=== PATIENT | male | born 1965 | race African-American/Black ===

== ENCOUNTER 2016-06-26 21:55 | Emergency (ER) | payer OTHER ==
--- NOTE | 2016-06-26 22:46 | ED ---
General Adult HPI - General Chief complaint: Extremity Problem,Nontraumatic Stated complaint: Hip pain Time Seen by Provider: 06/26/16 22:44 Source: patient, RN notes reviewed, old records reviewed Mode of arrival: ambulatory - History of Present Illness Initial comments: This is a 51-year-old male here for evaluation of nonspecific back pain leg pain and thigh pain. Patient's symptoms are this morning and progressively worsen, worse with ambulation, no modifying factors. Patient states he is unable to take more narcotics for pain. No difficulty with urination no problems with bowel movements. No trauma. No fevers. Denies IV drug abuse. - Related Data Home Medications Medication Instructions Recorded Confirmed Albuterol Inhaler [Ventolin Hfa 2 puff INHALATION Q6HR PRN 06/26/16 06/26/16 Inhaler] Benztropine Mesylate [Cogentin] 2 mg PO DAILY 06/26/16 06/26/16 Cough Syrup (Unknown) 5 ml PO BID PRN 06/26/16 06/26/16 Escitalopram Oxalate [Lexapro] 20 mg PO DAILY 06/26/16 06/26/16 Multivitamin [Men's Multi-Vitamin] 1 tab PO DAILY 06/26/16 06/26/16 Paliperidone IM [Invega Sustenna] 234 mg IM Q28D 06/26/16 06/26/16 QUEtiapine FUMARATE [SEROquel] 100 mg PO HS 06/26/16 06/26/16 Allergies Allergy/AdvReac Type Severity Reaction Status Date / Time haloperidol [From Haldol] Allergy Unknown Verified 06/26/16 22:00 Review of Systems ROS Statement: Those systems with pertinent positive or pertinent negative responses have been documented in the HPI. ROS Other: All systems not noted in ROS Statement are negative. Past Medical History Past Medical History: No Reported History Additional Past Medical History / Comment(s): hernia History of Any Multi-Drug Resistant Organisms: None Reported Past Surgical History: No Surgical Hx Reported Past Psychological History: Anxiety, Bipolar, Depression, Schizophrenia Smoking Status: Current every day smoker Past Alcohol Use History: Occasional Past Drug Use History: None Reported General Exam - General Exam Comments Initial Comments: No palpation of lower back difficulty, no neurological deficit General appearance: alert, in no apparent distress Head exam: Present: atraumatic, normocephalic, normal inspection Eye exam: Present: normal appearance, PERRL, EOMI. Absent: scleral icterus, conjunctival injection, periorbital swelling ENT exam: Present: normal exam, mucous membranes moist Neck exam: Present: normal inspection. Absent: tenderness, meningismus, lymphadenopathy Respiratory exam: Present: normal lung sounds bilaterally. Absent: respiratory distress, wheezes, rales, rhonchi, stridor Cardiovascular Exam: Present: regular rate, normal rhythm, normal heart sounds. Absent: systolic murmur, diastolic murmur, rubs, gallop, clicks GI/Abdominal exam: Present: soft, normal bowel sounds. Absent: distended, tenderness, guarding, rebound, rigid Extremities exam: Present: normal inspection, full ROM, normal capillary refill. Absent: tenderness, pedal edema, joint swelling, calf tenderness Back exam: Present: normal inspection Neurological exam: Present: alert, oriented X3, CN II-XII intact Psychiatric exam: Present: normal affect, normal mood Skin exam: Present: warm, dry, intact, normal color. Absent: rash Course Vital Signs 06/26/16 21:57 Temperature 97 F L Pulse Rate 72 Respiratory 18 Rate Blood Pressure 119/74 O2 Sat by Pulse 99 Oximetry - Reevaluation(s) Reevaluation #1: 06/27/16 00:07 Patient able to ambulate without difficulty Medical Decision Making - Medical Decision Making 51 male with bilateral hip pain. Patient's pain is mildly improved, he is able to ambulate urine is negative and x-rays normal - Radiology Data Radiology results: report reviewed (X-ray pelvis negative for acute disease), image reviewed Disposition Clinical Impression: Bilateral thigh pain Disposition: HOME SELF-CARE Condition: Good Instructions: Arthralgia (ED), Hip Pain (ED) Referrals: Phillip Mayes MD [Primary Care Provider] - 1-2 days
[2016-06-26] MEDS ORDERED: HYDROmorphone 2 MG/ML 1 ML SYRINGE IM STA (23:25)
[2016-06-26] MEDS ORDERED: IBUPROFEN 800 MG TAB PO STA (23:25)
--- NOTE | 2016-06-27 00:10 | XR ---
EXAMINATION TYPE: XR pelvis AP view DATE OF EXAM: 06/27/2016 12:00 AM COMPARISON: NONE HISTORY: Left-sided pelvic pain TECHNIQUE: Single view FINDINGS: Pelvic ring is intact. Proximal femurs and hip joints are intact. Sacroiliac joints are nor mal. There are numerous phleboliths in the pelvis. IMPRESSION: Negative pelvis exam. No fracture seen.
[2016-06-27 00:46] LABS: Appearance,Urine Clear (Clear); Bilirubin,Urine Negative (Negative); Glucose,Urine (UA) Negative (Negative); Ketones,Urine Negative (Negative); Leukocyte Esterase,Urine Negative (Negative); Nitrite,Urine Negative (Negative); Protein,Urine Negative (Negative); Specific Gravity,Urine 1.014 (1.001-1.035); UA Billing (MACRO vs. MICRO) CHEM
[2016-06-27 01:56] VITALS: BP 105/66; PULSE 71; RESP 16; TEMP 97.2
== END 2016-06-27 01:49 | disposition home or self-care (01) ==
LOC: EC 21:55
DX: M79.652 Pain in left thigh (principal); M79.651 Pain in right thigh; M25.552 Pain in left hip; M25.551 Pain in right hip; M54.9 Dorsalgia, unspecified; F41.9 Anxiety disorder, unspecified; F31.9 Bipolar disorder, unspecified; F20.9 Schizophrenia, unspecified; Z79.899 Other long term (current) drug therapy; Z88.8 Allergy status to other drugs, medicaments and biological substances; F17.200 Nicotine dependence, unspecified, uncomplicated
CPT/HCPCS: 72170; 81003; 87086; 99284

== ENCOUNTER 2016-07-09 12:40 | Observation (INO) | payer OTHER ==
[2016-07-09] MEDS ORDERED: ASPIRIN 81 MG CHEW PO STA (13:19)
[2016-07-09] MEDS ORDERED: NITROGLYCERIN OINT 1 INCH/GM PACKET TOPICAL STA (13:19)
--- NOTE | 2016-07-09 13:22 | ED ---
General Adult HPI - General Chief complaint: Shortness of Breath Stated complaint: Chest Pain Time Seen by Provider: 07/09/16 13:15 Source: patient, RN notes reviewed Mode of arrival: wheelchair Limitations: no limitations - History of Present Illness Initial comments: Patient is a pleasant 51-year-old male presenting to the emergency department chest discomfort and dyspnea. Symptoms have been intermittent over the past several weeks. Symptoms are worse with exertion. Patient also feels like there is a bubble in his chest. Patient was seen once previously and prescribed antibiotics and steroids without improvement of symptoms. Patient does admit also having a cough. Patient was seen again [facility] today and advised to come to the emergency department. Patient states symptoms are mild at this time, discomfort rated 2/10. Patient has a difficult time describing the type of discomfort he is experiencing. No history of similar symptoms previously. No history of cardiac disease. - Related Data Home Medications Medication Instructions Recorded Confirmed Albuterol Inhaler [Ventolin Hfa 2 puff INHALATION RT-Q6H PRN 06/26/16 07/09/16 Inhaler] Benztropine Mesylate [Cogentin] 2 mg PO DAILY 06/26/16 07/09/16 Escitalopram Oxalate [Lexapro] 20 mg PO DAILY 06/26/16 07/09/16 Multivitamin [Men's Multi-Vitamin] 1 tab PO DAILY 06/26/16 07/09/16 QUEtiapine FUMARATE [SEROquel] 100 mg PO HS 06/26/16 07/09/16 Lisinopril [Zestril] 10 mg PO DAILY 07/09/16 07/09/16 Omeprazole [PriLOSEC] 20 mg PO DAILY 07/09/16 07/09/16 Paliperidone IM [Invega Sustenna] 234 mg IM Q28D 07/09/16 07/09/16 QUEtiapine [SEROquel] 25 mg PO BID 07/09/16 07/09/16 Allergies Allergy/AdvReac Type Severity Reaction Status Date / Time haloperidol [From Haldol] Allergy Unknown Verified 07/09/16 12:53 Review of Systems ROS Statement: Those systems with pertinent positive or pertinent negative responses have been documented in the HPI. ROS Other: All systems not noted in ROS Statement are negative. Constitutional: Denies: fever Eyes: Denies: eye pain ENT: Denies: ear pain Respiratory: Reports: cough, dyspnea Cardiovascular: Reports: chest pain Endocrine: Reports: fatigue Gastrointestinal: Denies: abdominal pain Genitourinary: Denies: dysuria Musculoskeletal: Denies: back pain Skin: Denies: rash Neurological: Denies: weakness Past Medical History Past Medical History: No Reported History Additional Past Medical History / Comment(s): hernia History of Any Multi-Drug Resistant Organisms: None Reported Past Surgical History: Hernia Repair Past Psychological History: Anxiety, Bipolar, Depression, Schizophrenia Smoking Status: Current every day smoker Past Alcohol Use History: Occasional Past Drug Use History: None Reported General Exam Limitations: no limitations General appearance: alert, in no apparent distress Head exam: Present: atraumatic Eye exam: Present: normal appearance ENT exam: Present: normal oropharynx Neck exam: Present: normal inspection Respiratory exam: Present: normal lung sounds bilaterally. Absent: chest wall tenderness Cardiovascular Exam: Present: regular rate, normal rhythm Expanded Peripheral pulses: 2+: Radial (R), Radial (L), Posterior Tibialis (R), Posterior Tibialis (L) GI/Abdominal exam: Present: soft. Absent: tenderness Extremities exam: Present: normal inspection. Absent: pedal edema, calf tenderness Neurological exam: Present: alert Psychiatric exam: Present: normal affect, normal mood Skin exam: Absent: rash Course Vital Signs 07/09/16 07/09/16 07/09/16 12:51 13:12 13:34 Temperature 98.1 F Pulse Rate 92 66 Respiratory 20 20 18 Rate Blood Pressure 107/65 99/63 O2 Sat by Pulse 96 97 Oximetry 07/09/16 14:33 Temperature Pulse Rate 62 Respiratory 18 Rate Blood Pressure 100/64 O2 Sat by Pulse 94 L Oximetry - Reevaluation(s) Reevaluation #1: 07/09/16 13:36 Previous EKG from 03/11/16 with similar findings. EKG Findings - EKG Comments: EKG Findings:: Normal sinus rhythm at 65. Normal intervals. Left axis. Repolarization changes. Normal QRS. Medical Decision Making - Medical Decision Making Patient reexamined and resting comfortably in bed. Patient still has minimal discomfort. Patient updated on results and plan. Case discussed in detail with Dr. Carrasquillo, who will admit for hospital call. Case was earlier discussed with Dr. Middleton who felt patient should be city call secondary to being seen in the clinic and not Dr. Mayes as a primary. - Lab Data Result diagrams: 07/09/16 13:49 07/09/16 13:49 Lab Results 07/09/16 07/09/16 07/09/16 Range/Units 13:49 13:49 13:49 WBC 5.9 (3.8-10.6) k/uL RBC 4.77 (4.30-5.90) m/uL Hgb 11.3 L (13.0-17.5) gm/dL Hct 36.3 L (39.0-53.0) % MCV 76.1 L (80.0-100.0) fL MCH 23.6 L (25.0-35.0) pg MCHC 31.0 (31.0-37.0) g/dL RDW 13.6 (11.5-15.5) % Plt Count 157 (150-450) k/uL Neutrophils % 53 % Lymphocytes % 31 % Monocytes % 8 % Eosinophils % 5 % Basophils % 1 % Neutrophils # 3.1 (1.3-7.7) k/uL Lymphocytes # 1.8 (1.0-4.8) k/uL Monocytes # 0.5 (0-1.0) k/uL Eosinophils # 0.3 (0-0.7) k/uL Basophils # 0.0 (0-0.2) k/uL PT (9.0-12.0) sec INR (<1.1) APTT (22.0-30.0) sec D-Dimer (<0.60) mg/L FEU Sodium 141 (137-145) mmol/L Potassium 4.1 (3.5-5.1) mmol/L Chloride 103 (98-107) mmol/L Carbon Dioxide 27 (22-30) mmol/L Anion Gap 11 mmol/L BUN 6 L (9-20) mg/dL Creatinine 0.97 (0.66-1.25) mg/dL Est GFR (MDRD) Af Amer >60 (>60 ml/min/1.73 sqM) Est GFR (MDRD) Non-Af >60 (>60 ml/min/1.73 sqM) Glucose 94 (74-99) mg/dL Calcium 9.5 (8.4-10.2) mg/dL Magnesium 1.5 L (1.6-2.3) mg/dL Total Bilirubin 0.4 (0.2-1.3) mg/dL AST 27 (17-59) U/L ALT 35 (21-72) U/L Alkaline Phosphatase 68 (38-126) U/L Total Creatine Kinase 236 H (55-170) U/L CK-MB (CK-2) 1.4 (0.0-2.4) ng/mL CK-MB (CK-2) Rel Index 0.6 Troponin I <0.012 (0.000-0.034) ng/mL NT-Pro-B Natriuret Pep pg/mL Total Protein 7.9 (6.3-8.2) g/dL Albumin 4.2 (3.5-5.0) g/dL 07/09/16 07/09/16 Range/Units 13:49 13:49 WBC (3.8-10.6) k/uL RBC (4.30-5.90) m/uL Hgb (13.0-17.5) gm/dL Hct (39.0-53.0) % MCV (80.0-100.0) fL MCH (25.0-35.0) pg MCHC (31.0-37.0) g/dL RDW (11.5-15.5) % Plt Count (150-450) k/uL Neutrophils % % Lymphocytes % % Monocytes % % Eosinophils % % Basophils % % Neutrophils # (1.3-7.7) k/uL Lymphocytes # (1.0-4.8) k/uL Monocytes # (0-1.0) k/uL Eosinophils # (0-0.7) k/uL Basophils # (0-0.2) k/uL PT 10.5 (9.0-12.0) sec INR 1.0 (<1.1) APTT 26.2 (22.0-30.0) sec D-Dimer 0.58 (<0.60) mg/L FEU Sodium (137-145) mmol/L Potassium (3.5-5.1) mmol/L Chloride (98-107) mmol/L Carbon Dioxide (22-30) mmol/L Anion Gap mmol/L BUN (9-20) mg/dL Creatinine (0.66-1.25) mg/dL Est GFR (MDRD) Af Amer (>60 ml/min/1.73 sqM) Est GFR (MDRD) Non-Af (>60 ml/min/1.73 sqM) Glucose (74-99) mg/dL Calcium (8.4-10.2) mg/dL Magnesium (1.6-2.3) mg/dL Total Bilirubin (0.2-1.3) mg/dL AST (17-59) U/L ALT (21-72) U/L Alkaline Phosphatase (38-126) U/L Total Creatine Kinase (55-170) U/L CK-MB (CK-2) (0.0-2.4) ng/mL CK-MB (CK-2) Rel Index Troponin I (0.000-0.034) ng/mL NT-Pro-B Natriuret Pep 24 pg/mL Total Protein (6.3-8.2) g/dL Albumin (3.5-5.0) g/dL - Radiology Data Radiology results: image reviewed (Two-view chest x-ray shows no acute process.) Disposition Clinical Impression: Chest pain Disposition: ADMITTED IP TO THIS HOSP
--- NOTE | 2016-07-09 13:59 | XR ---
EXAMINATION TYPE: XR chest 2V DATE OF EXAM: 07/09/2016 1:55 PM COMPARISON: 03/11/2016 HISTORY: Chest pain TECHNIQUE: Frontal and lateral views of the chest are obtained. FINDINGS: There is no focal air space opacity, pleural effusion, or pneumothorax seen. The cardiac silhouette size is within normal limits. The osseous structures are intact. IMPRESSION: No acute cardiopulmonary process.
[2016-07-09 14:09] LABS: Basophils % (A) 1 %; CH 24.1; CHCM 31.9; Eosinophils # (A) 0.3 k/uL (0-0.7); Eosinophils % (A) 5 %; HCT 36.3 % (39.0-53.0); HDW 2.95; HGB 11.3 gm/dL (13.0-17.5); Luc # (Auto) 0.15; Luc % (Auto) 3; Lymphocytes # (A) 1.8 k/uL (1.0-4.8); Lymphocytes % (A) 31 %; MCH 23.6 pg (25.0-35.0); MCV 76.1 fL (80.0-100.0); Mean Platelet Volume 7.7; Monocytes # (A) 0.5 k/uL (0-1.0); Monocytes % (A) 8 %; Neutrophils # (A) 3.1 k/uL (1.3-7.7); Neutrophils % (A) 53 %; RBC 4.77 m/uL (4.30-5.90); RDW 13.6 % (11.5-15.5); WBC 5.9 k/uL (3.8-10.6); WBC (Perox) 5.79
[2016-07-09 14:19] LABS: Partial Thromboplastin Time 26.2 sec (22.0-30.0); Prothrombin Time 10.5 sec (9.0-12.0)
[2016-07-09 14:26] LABS: Creatine Kinase 236 U/L (55-170)
[2016-07-09 14:28] LABS: ALT 35 U/L (21-72); AST 27 U/L (17-59); Alkaline Phosphatase 68 U/L (38-126); Anion Gap 11 mmol/L; Blood Urea Nitrogen 6 mg/dL (9-20); Calcium 9.5 mg/dL (8.4-10.2); Carbon Dioxide 27 mmol/L (22-30); Chloride 103 mmol/L (98-107); Glucose 94 mg/dL (74-99); Magnesium 1.5 mg/dL (1.6-2.3); Non-African American GFR(MDRD) >60 (>60 ml/min/1.73 sqM); Potassium 4.1 mmol/L (3.5-5.1); Sodium 141 mmol/L (137-145); Total Bilirubin 0.4 mg/dL (0.2-1.3); Total Protein 7.9 g/dL (6.3-8.2)
[2016-07-09 14:38] LABS: Creatine Kinase MB 1.4 ng/mL (0.0-2.4); Troponin I <0.012 ng/mL (0.000-0.034)
[2016-07-09] MEDS ORDERED: MAGNESIUM OXIDE 400 MG TAB PO STA (15:38)
[2016-07-09] MEDS ORDERED: RX INFO: IV CONTRAST WAS GIVEN 1 EACH MISC MISCELLANE PRN (15:46)
[2016-07-09] MEDS ORDERED: NITROGLYCERIN SL TABS 0.4 MG TAB SUBLINGUAL PRN (15:48)
--- NOTE | 2016-07-09 18:53 | CT ---
EXAMINATION TYPE: CT angio chest DATE OF EXAM: 07/09/2016 6:48 PM COMPARISON: NONE HISTORY: Cough and mid chest pain. CT DLP: 338.20 mGycm Automated exposure control for dose reduction was used. CONTRAST: CTA scan of the thorax is performed with IV Contrast, patient injected with 100 mL of Omnipaque 350, pulmonary embolism protocol. . FINDINGS: There are Three-D postprocessed images. Lungs are clear of infiltrate. There is no pleural effusion. There is no evidence of a pulmonary mass . Heart size is normal. There is no pericardial effusion. There is no evidence of aortic aneurysm or dissection. There is normal contrast opacification of the pulmonary arteries. I see no filling defect. There is no mediastinal adenopathy. The bony thorax appe ars intact. IMPRESSION: NORMAL CT ANGIOGRAM OF THE CHEST. NO EVIDENCE OF PULMONARY EMBOLISM.
[2016-07-09] MEDS ORDERED: ALBUTEROL NEBULIZED 2.5 MG/3 ML INHALATION PRN (19:14)
[2016-07-09] MEDS: NITROGLYCERIN OINT 1 INCH/GM PACKET TOPICAL SCH ×2 (19:51→23:58)
[2016-07-09] MEDS ORDERED: ACETAMINOPHEN TAB 325 MG TAB PO PRN (19:52)
[2016-07-09] MEDS: QUEtiapine 25 MG TAB PO SCH (20:00)
[2016-07-09 20:51] LABS: Creatine Kinase 208 U/L (55-170)
[2016-07-09] MEDS ORDERED: QUEtiapine 100 MG TAB PO SCH (21:00)
[2016-07-09 21:04] LABS: Creatine Kinase MB 1.2 ng/mL (0.0-2.4); Troponin I <0.012 ng/mL (0.000-0.034)
[2016-07-10 02:32] LABS: Creatine Kinase 185 U/L (55-170)
[2016-07-10 02:44] LABS: Creatine Kinase MB 1.1 ng/mL (0.0-2.4); Troponin I <0.012 ng/mL (0.000-0.034)
[2016-07-10] MEDS: NITROGLYCERIN OINT 1 INCH/GM PACKET TOPICAL SCH ×2 (06:45→19:37)
--- NOTE | 2016-07-10 08:45 | CONS ---
DATE OF CONSULTATION: CHIEF COMPLAINT: Chest pain. Ryan is a 51-year-old gentleman who comes to the hospital complaining of chest pain. He describes it as a precordial chest discomfort without definite radiation to neck, arm or back. It is intermittent, has been going on for the last several weeks, feels like something is sitting in his chest and he is coughing but is not able to bring up anything. He had been evaluated in [facility] and was subsequently sent home. On this admission he had a CTA that is negative for pulmonary emoblism. He has had 3 sets of cardiac enzymes that are negative. EKG does not reveal ischemic changes. Past medical history is significant for bipolar mood disorder. Past medical history significant for GERD and hypertension. Medications include: 1. Cogentin. 2. Lexapro. 3. Seroquel. 4. Prilosec. 5. Zestril. ALLERGIC TO HALDOL. FAMILY HISTORY: Negative for premature coronary artery disease. SOCIAL HISTORY: Significant for smoking and ETOH abuse. He states that he stopped smoking for a while and is not drinking that much. There is no history of drug abuse. Review of systems unremarkable other than what has been mentioned so far. On exam he is comfortable at rest. Vital signs are stable. There is no jugular venous distention. Chest exam reveals good air entry bilaterally. Heart exam reveals first and second heart sounds. No gallop. No murmur, no rub. ABDOMEN: Soft, nontender. Exam of the extremities did not reveal edema. Peripheral pulses are felt. Labs show a hemoglobin of 11.3, platelet count is 157. Three sets of tropes are negative. Creatinine is 0.9. ASSESSMENT: 1. Precordial chest pain. 2. History of hypertension. PLAN: Patient's chest discomfort is atypical. Myocardial infarction is ruled out. EKG appears normal. I am going to schedule the patient for a stress echo and if this is negative, he will be discharged home and if this is abnormal, he will undergo further evaluation.
[2016-07-10] MEDS: QUEtiapine 25 MG TAB PO SCH (08:46)
[2016-07-10] MEDS ORDERED: ESCITALOPRAM 20 MG TAB PO SCH (09:00)
[2016-07-10] MEDS ORDERED: LISINOPRIL 10 MG TAB PO SCH (09:00)
[2016-07-10] MEDS ORDERED: ASPIRIN 325 MG TAB PO SCH (09:00)
--- NOTE | 2016-07-10 10:11 | HP ---
DATE OF ADMISSION: CHIEF COMPLAINT: Shortness of breath. HISTORY OF PRESENT ILLNESS: A 51-year-old who comes in with chest pain and shortness of breath over the past week and respiratory distress. CT angiogram in the ER was negative. He was admitted and monitored to rule out myocardial infarction. Advised to come to the emergency room and was admitted for respiratory distress and shortness of breath. He noted some swelling in his lower legs and scrotum. Possible lymphedema-type changes. HOME MEDICATIONS: 1. Ventolin HFA. 2. Cogentin. 3. Lexapro. 4. Seroquel. 5. Zestril. 6. Prilosec. 7. Invega. 8. Seroquel. ALLERGIES: HALDOL. REVIEW OF SYSTEMS: NEURO: Negative. PSYCH: History of schizophrenia. Slight affect. OPHTHALMOLOGIC: Negative. IMMUNE: Negative. INTEGUMENT: Negative. GASTROINTESTINAL: Negative. : Negative. PAST SURGICAL HISTORY: Hernia repair. History of anxiety, bipolar, schizophrenia, current every day smoker. Temp 98.1, pulse 60s to 90s, respiratory rate 18 to 20, blood pressure is 90s to 107/60's. O2 97% on room air. CARDIOVASCULAR: S1, S2. LUNGS: Transmitted upper air sounds. HEMATOLOGIC: Negative Homans. PSYCHIATRIC: Fair mood and affect. NEUROLOGIC: Alert and oriented x3. ( ) affect. SKIN: No rash. EKG shows sinus rhythm. Hemoglobin is 11.3. ASSESSMENT: 1. Rule out myocardial infarction. Await for cardiology consult. 2. Suspect tracheobronchitis and chronic obstructive pulmonary disease exacerbation. 3. Schizophrenia and bipolar. 4. Nicotine addiction. Please further orders in the chart.
--- NOTE | 2016-07-10 11:20 | ECHOS ---
DATE OF SERVICE: 07/10/2016 AGE: 51Y SEX: M HT: 75" WT: 227 lbs. Protocol Burak: X Others: Stress Echo Stage: II Dur. of Exercise: 4:25 *Heart Rate Blood Pressure *Rest: 79 Rest: 107/63 * *Max. Achieved: 137 Maximum BP: 158/64 85% PMHR: 145 100% PMHR: 170 *METS: 6.0 INDICATIONS: Chest pain. MEDICATIONS: - STRESS DATA: Pretesting physical examination showed a heart rate of 79, pressure is 107/63 mmHg. Baseline EKG showed sinus mechanism. The patient exercised on the treadmill according to Burak protocol for a total of 4 minutes and 25 seconds and achieved 6.0 METs. The max heart rate was 137, which is about 80% of maximum predicted heart rate. Maximum blood pressure was 158/64 mmHg. Clinically, the patient did not have any symptoms of chest pain or discomfort and the EKG did not show any significant ST or T-wave abnormalities consistent with ischemia. ECHOCARDIOGRAM IMAGES: On echocardiogram images from parasternal long axis view, parasternal short axis view, apical 4 chamber and apical 2 chambers noted as the baseline images, at the peak of the heart rate as well as on recovery and the echocardiogram showed good augmentation in the left ventricular systolic function. CONCLUSION: 1. Average exercise capacity. 2. Normal EKG in response to exercise. 3. Normal echocardiogram in response to exercise.
[2016-07-10 12:18] LABS: Cholesterol 186 mg/dL (<200); HDL Cholesterol 29 mg/dL (40-60); Triglycerides 156 mg/dL (<150)
[2016-07-10 12:31] VITALS: RESP 16
[2016-07-10 16:01] VITALS: BP 140/82; PULSE 88; TEMP 97.9
--- NOTE | 2016-08-03 21:22 | DS ---
DATE OF ADMISSION: 07/09/2016 DATE OF DISCHARGE: 07/10/2016 DISCHARGE MEDICATIONS 1. Cogentin 2 mg daily. 2. Seroquel 100 q.h.s. 3. Multivitamin daily. 4. Lexapro 20 daily. 5. Ventolin HFA 2 puffs q.6 hours p.r.n. 6. Omeprazole 20 daily. 7. Seroquel 25 mg b.i.d. 8. Lisinopril 10 mg daily. 9. Invega 234 mg IM q. 28 days. DISCHARGE DIAGNOSES: 1. Precordial chest pain. 2. Hypertension. 3. Atypical chest pain. 4. Nicotine addiction. 5. Alcohol abuse. 6. Mood disorder. The patient was seen by [facility] while in the hospital. Stress test with a stress echo was ordered by cardiology which is normal at which time patient was discharged home with cardiology clearance. CTA was also done to rule out pulmonary embolism which was normal, the patient cleared by cardiology and will follow up as an outpatient.
== END 2016-07-10 22:00 | disposition home or self-care (01) ==
LOC: EC 12:40 → 3OBS 15:48
PROVIDERS: ADMIT Family Medicine; ATTEND Family Medicine
DX: R07.2 Precordial pain (principal); F31.9 Bipolar disorder, unspecified; F10.10 Alcohol abuse, uncomplicated; F17.200 Nicotine dependence, unspecified, uncomplicated; I10 Essential (primary) hypertension; K21.9 Gastro-esophageal reflux disease without esophagitis; F20.9 Schizophrenia, unspecified; F41.9 Anxiety disorder, unspecified; Z88.8 Allergy status to other drugs, medicaments and biological substances; Z79.899 Other long term (current) drug therapy; R06.02 Shortness of breath; R05 Cough
CPT/HCPCS: 36415; 93005; 93017; 93350; 85379; 83880; 80061; 80053; 82550 ×2; 82553 ×2; 83735; 84484 ×2; 85025; 85610; 85730; 71020; 71275; 99285; G0378 ×2; Q9967

== ENCOUNTER 2016-10-01 15:28 | Emergency (ER) | payer OTHER ==
[2016-10-01 15:37] VITALS: RESP 20
--- NOTE | 2016-10-01 15:41 | ED ---
General Adult HPI - General Chief complaint: Urogenital Stated complaint: Male Time Seen by Provider: 10/01/16 15:37 Source: patient, RN notes reviewed, old records reviewed Mode of arrival: ambulatory Limitations: no limitations - History of Present Illness Initial comments: This is a 51-year-old male the ER for evaluation. Presents today for evaluation of multiple nonspecific complaints, he said he may have blood in his semen, he may of had some scrotum pain and is concerned is having her she was sent to ER for evaluation from [facility], patient states he went there for the same symptoms and they sent him here. No fevers. No bowel or bladder issues. - Related Data Home Medications Medication Instructions Recorded Confirmed Benztropine Mesylate [Cogentin] 2 mg PO QAM 06/26/16 10/01/16 Escitalopram Oxalate [Lexapro] 20 mg PO DAILY 06/26/16 10/01/16 Multivitamin [Men's Multi-Vitamin] 1 tab PO DAILY 06/26/16 10/01/16 QUEtiapine FUMARATE [SEROquel] 100 mg PO HS 06/26/16 10/01/16 Lisinopril [Zestril] 10 mg PO DAILY 07/09/16 10/01/16 Omeprazole [PriLOSEC] 20 mg PO DAILY 07/09/16 10/01/16 Paliperidone IM [Invega Sustenna] 234 mg IM Q28D 07/09/16 10/01/16 QUEtiapine [SEROquel] 25 mg PO BID 07/09/16 10/01/16 Allergies Allergy/AdvReac Type Severity Reaction Status Date / Time haloperidol [From Haldol] Allergy Anaphylaxis Verified 10/01/16 16:01 Review of Systems ROS Statement: Those systems with pertinent positive or pertinent negative responses have been documented in the HPI. ROS Other: All systems not noted in ROS Statement are negative. Past Medical History Past Medical History: No Reported History Additional Past Medical History / Comment(s): hernia, inguinal/umb History of Any Multi-Drug Resistant Organisms: None Reported Past Surgical History: Hernia Repair, Orthopedic Surgery Additional Past Surgical History / Comment(s): 05-03-16 robotic assisted lap lt inguinal hernia repair, right foot Past Anesthesia/Blood Transfusion Reactions: No Reported Reaction Past Psychological History: Anxiety, Bipolar, Depression, Schizophrenia Additional Psychological History / Comment(s): bipolar/depression listed on previous listed, when asked if he had bipolar depression he statee" i have anxiety and schizophrenia" Smoking Status: Current every day smoker Past Alcohol Use History: None Reported Additional Past Alcohol Use History / Comment(s): started smoking at age 20 1/2 ppd. pt stated he lives in a 3/4 house d/t his drinking stted has been there 5 months. Past Drug Use History: None Reported Additional Drug Use History / Comment(s): many years ago - Past Family History Mother Additional Family Medical History / Comment(s): bronchitis Father Family Medical History: No Reported History General Exam Limitations: no limitations General appearance: alert, in no apparent distress Head exam: Present: atraumatic, normocephalic, normal inspection Eye exam: Present: normal appearance, PERRL, EOMI. Absent: scleral icterus, conjunctival injection, periorbital swelling ENT exam: Present: normal exam, mucous membranes moist Neck exam: Present: normal inspection. Absent: tenderness, meningismus, lymphadenopathy Respiratory exam: Present: normal lung sounds bilaterally. Absent: respiratory distress, wheezes, rales, rhonchi, stridor Cardiovascular Exam: Present: regular rate, normal rhythm, normal heart sounds. Absent: systolic murmur, diastolic murmur, rubs, gallop, clicks GI/Abdominal exam: Present: soft, normal bowel sounds. Absent: distended, tenderness, guarding, rebound, rigid Extremities exam: Present: normal inspection, full ROM, normal capillary refill. Absent: tenderness, pedal edema, joint swelling, calf tenderness Back exam: Present: normal inspection Neurological exam: Present: alert, oriented X3, CN II-XII intact Psychiatric exam: Present: normal affect, normal mood Skin exam: Present: warm, dry, intact, normal color. Absent: rash Course Vital Signs 10/01/16 10/01/16 15:32 17:23 Temperature 98.9 F 98.4 F Pulse Rate 86 74 Respiratory 20 20 Rate Blood Pressure 114/73 112/62 O2 Sat by Pulse 98 98 Oximetry Medical Decision Making - Medical Decision Making 51 male to ER for evaluation nonspecific complaints. Exam is normal of bladder , scrotum, lymph nodes, lab work is normal, ultrasound was negative and patient will be discharged home - Lab Data Result diagrams: 10/01/16 15:45 10/01/16 15:45 Lab Results 10/01/16 10/01/16 10/01/16 Range/Units 15:45 15:45 15:45 WBC 6.6 (3.8-10.6) k/uL RBC 4.91 (4.30-5.90) m/uL Hgb 11.7 L (13.0-17.5) gm/dL Hct 37.0 L (39.0-53.0) % MCV 75.4 L (80.0-100.0) fL MCH 23.9 L (25.0-35.0) pg MCHC 31.7 (31.0-37.0) g/dL RDW 13.5 (11.5-15.5) % Plt Count 196 (150-450) k/uL Neutrophils % 54 % Lymphocytes % 32 % Monocytes % 6 % Eosinophils % 3 % Basophils % 2 % Neutrophils # 3.6 (1.3-7.7) k/uL Lymphocytes # 2.1 (1.0-4.8) k/uL Monocytes # 0.4 (0-1.0) k/uL Eosinophils # 0.2 (0-0.7) k/uL Basophils # 0.1 (0-0.2) k/uL Hypochromasia Slight Sodium 137 (137-145) mmol/L Potassium 4.0 (3.5-5.1) mmol/L Chloride 103 (98-107) mmol/L Carbon Dioxide 24 (22-30) mmol/L Anion Gap 10 mmol/L BUN 11 (9-20) mg/dL Creatinine 0.90 (0.66-1.25) mg/dL Est GFR (MDRD) Af Amer >60 (>60 ml/min/1.73 sqM) Est GFR (MDRD) Non-Af >60 (>60 ml/min/1.73 sqM) Glucose 98 (74-99) mg/dL Calcium 9.4 (8.4-10.2) mg/dL Phosphorus 4.3 (2.5-4.5) mg/dL Magnesium 1.5 L (1.6-2.3) mg/dL Total Bilirubin 0.6 (0.2-1.3) mg/dL AST 38 (17-59) U/L ALT 26 (21-72) U/L Alkaline Phosphatase 84 (38-126) U/L Total Protein 8.4 H (6.3-8.2) g/dL Albumin 4.4 (3.5-5.0) g/dL Urine Color Yellow Urine Appearance Clear (Clear) Urine pH 6.5 (5.0-8.0) Ur Specific [place] 1.008 (1.001-1.035) Urine Protein Negative (Negative) Urine Glucose (UA) Negative (Negative) Urine Ketones Negative (Negative) Urine Blood Negative (Negative) Urine Nitrite Negative (Negative) Urine Bilirubin Negative (Negative) Urine Urobilinogen <2.0 (<2.0) mg/dL Ur Leukocyte Esterase Negative (Negative) - Radiology Data Radiology results: report reviewed (US Scrotum Is Negative for Acute Disease), image reviewed Disposition Clinical Impression: Hematuria Disposition: HOME SELF-CARE Condition: Good Instructions: Hematuria (ED) Referrals: None,Stated [Primary Care Provider] - 1-2 days
[2016-10-01 16:04] LABS: Basophils # (A) 0.1 k/uL (0-0.2); Basophils % (A) 2 %; CH 23.5; CHCM 31.4; Eosinophils # (A) 0.2 k/uL (0-0.7); Eosinophils % (A) 3 %; HDW 2.81; HGB 11.7 gm/dL (13.0-17.5); Hypochromasia Slight; Luc # (Auto) 0.18; Luc % (Auto) 3; Lymphocytes # (A) 2.1 k/uL (1.0-4.8); Lymphocytes % (A) 32 %; MCH 23.9 pg (25.0-35.0); MCHC 31.7 g/dL (31.0-37.0); MCV 75.4 fL (80.0-100.0); Mean Platelet Volume 7.3; Monocytes # (A) 0.4 k/uL (0-1.0); Monocytes % (A) 6 %; Neutrophils # (A) 3.6 k/uL (1.3-7.7); Neutrophils % (A) 54 %; RBC 4.91 m/uL (4.30-5.90); RDW 13.5 % (11.5-15.5); WBC 6.6 k/uL (3.8-10.6); WBC (Perox) 6.51
[2016-10-01 16:05] LABS: Appearance,Urine Clear (Clear); Bilirubin,Urine Negative (Negative); Glucose,Urine (UA) Negative (Negative); Ketones,Urine Negative (Negative); Leukocyte Esterase,Urine Negative (Negative); Nitrite,Urine Negative (Negative); PH, Urine 6.5 (5.0-8.0); Protein,Urine Negative (Negative); Specific Gravity,Urine 1.008 (1.001-1.035); UA Billing (MACRO vs. MICRO) CHEM; Urobilinogen,Urine <2.0 mg/dL (<2.0)
[2016-10-01 16:21] LABS: ALT 26 U/L (21-72); AST 38 U/L (17-59); Alkaline Phosphatase 84 U/L (38-126); Anion Gap 10 mmol/L; Blood Urea Nitrogen 11 mg/dL (9-20); Calcium 9.4 mg/dL (8.4-10.2); Carbon Dioxide 24 mmol/L (22-30); Chloride 103 mmol/L (98-107); Glucose 98 mg/dL (74-99); Magnesium 1.5 mg/dL (1.6-2.3); Non-African American GFR(MDRD) >60 (>60 ml/min/1.73 sqM); Phosphorous 4.3 mg/dL (2.5-4.5); Sodium 137 mmol/L (137-145); Total Bilirubin 0.6 mg/dL (0.2-1.3); Total Protein 8.4 g/dL (6.3-8.2)
--- NOTE | 2016-10-01 16:40 | US ---
EXAMINATION TYPE: US scrotum with doppler. Grayscale and color Doppler Duplex imaging performed of francis wilks scrotum. DATE OF EXAM: 10/01/2016 4:30 PM COMPARISON: NONE CLINICAL HISTORY: Pain. Side not specified. EXAM MEASUREMENTS: TESTICLES: Right Testicle: 4.5 x 2.8 x 2.9 cm Left Testicle: 4.0 x 2.4 x 2.9 cm EPIDIDYMIS HEAD: Right Epididymis: 1.0 cm Left Epididymis: 0.7 cm Doppler performed to assess for testicular vascularity; good bilateral color flow and waveforms are s een. Presence of hydroceles: Right measures 3.7 x 1.2 x 2.2cm Left measures 5.9 x 1.4 x 3.8cm Presence of varicoceles: no Testicles are bilaterally heterogenous. Bilateral testicles are slightly heterogeneous in appearance. No worrisome focal intratesticular mass is present bilaterally. There are fairly moderate-sized scrotal fluid collection or hydroceles seen bilaterally. Towards end of exam comparison view shows no suspicious skin thickening. No asymmetric d iminished or increased blood flow to either testicle is seen. IMPRESSION: Symmetric blood flow to both testicles noted. Moderate symmetric scrotal fluid collection or hydroceles is present.
[2016-10-01 17:24] VITALS: BP 112/62; PULSE 74; TEMP 98.4
== END 2016-10-01 17:24 | disposition home or self-care (01) ==
LOC: EC 15:28
DX: R31.9 Hematuria, unspecified (principal); N50.82 Scrotal pain; F20.9 Schizophrenia, unspecified; F31.9 Bipolar disorder, unspecified; F41.9 Anxiety disorder, unspecified; F17.200 Nicotine dependence, unspecified, uncomplicated; Z79.899 Other long term (current) drug therapy; Z88.8 Allergy status to other drugs, medicaments and biological substances
CPT/HCPCS: 36415; 76870; 80053; 81003; 83735; 84100; 85025; 87086; 93975; 99284

== ENCOUNTER 2019-02-20 12:08 | Emergency (ER) | payer OTHER ==
[2019-02-20 12:19] VITALS: PULSE 84; RESP 18; TEMP 99
--- NOTE | 2019-02-20 13:22 | ED ---
Back Pain HPI - General Chief Complaint: Back Pain/Injury Stated Complaint: Side & Neck Pain Time Seen by Provider: 02/20/19 12:47 Source: patient, RN notes reviewed Limitations: no limitations - History of Present Illness Initial Comments: This a 53-year-old male presents emergency Department with chief complaint of low back pain, neck pain. He states that this has been ongoing for several weeks and his low back pain has been on for several months. Patient states that his pain is worse with movement denies any trauma he said no prior imaging. Patient states his right-sided neck pain is worse when he looks left and right. Patient denies any current headache dizziness, blurred vision, focal weakness. Patient states that he has not taken any medications for at this time. Patient states he also has right lower lumbar back pain that does not radiate into his legs he has no bowel bladder incontinence or retention has no complaints of abdominal pain. No dysuria no hematuria. - Related Data Home Medications Medication Instructions Recorded Confirmed Benztropine Mesylate [Cogentin] 2 mg PO QAM 06/26/16 02/20/19 Escitalopram Oxalate [Lexapro] 20 mg PO DAILY 06/26/16 02/20/19 Multivitamin [Men's Multi-Vitamin] 1 tab PO DAILY 06/26/16 02/20/19 QUEtiapine FUMARATE [SEROquel] 100 mg PO HS 06/26/16 02/20/19 Paliperidone IM [Invega Sustenna] 234 mg IM Q28D 07/09/16 02/20/19 QUEtiapine [SEROquel] 25 mg PO BID 07/09/16 02/20/19 Previous Rx's Medication Instructions Recorded Ibuprofen [Motrin] 600 mg PO Q8HR PRN #30 tab 02/20/19 Methocarbamol [Robaxin] 500 mg PO TID PRN #15 tab 02/20/19 Allergies Allergy/AdvReac Type Severity Reaction Status Date / Time haloperidol [From Haldol] Allergy Anaphylaxis Verified 02/20/19 12:36 Review of Systems ROS Statement: Those systems with pertinent positive or pertinent negative responses have been documented in the HPI. ROS Other: All systems not noted in ROS Statement are negative. Past Medical History Past Medical History: No Reported History Additional Past Medical History / Comment(s): hernia, inguinal/umb History of Any Multi-Drug Resistant Organisms: None Reported Past Surgical History: Hernia Repair, Orthopedic Surgery Additional Past Surgical History / Comment(s): 05-03-16 robotic assisted lap lt inguinal hernia repair, right foot Past Anesthesia/Blood Transfusion Reactions: No Reported Reaction Past Psychological History: Anxiety, Bipolar, Depression, Schizophrenia Smoking Status: Current every day smoker Past Alcohol Use History: None Reported Past Drug Use History: None Reported - Past Family History Mother Additional Family Medical History / Comment(s): bronchitis Father Family Medical History: No Reported History General Exam Limitations: no limitations General appearance: alert, in no apparent distress Head exam: Present: atraumatic, normocephalic, normal inspection Eye exam: Present: normal appearance, PERRL, EOMI. Absent: scleral icterus, conjunctival injection, periorbital swelling ENT exam: Present: normal exam, normal oropharynx, mucous membranes moist, TM's normal bilaterally Neck exam: Present: normal inspection, tenderness (Right cervical paraspinal), full ROM. Absent: meningismus, lymphadenopathy Respiratory exam: Present: normal lung sounds bilaterally. Absent: respiratory distress, wheezes, rales, rhonchi, stridor Cardiovascular Exam: Present: regular rate, normal rhythm, normal heart sounds. Absent: systolic murmur, diastolic murmur, rubs, gallop, clicks GI/Abdominal exam: Present: soft, normal bowel sounds. Absent: distended, tenderness, guarding, rebound, rigid Extremities exam: Present: normal inspection, full ROM, normal capillary refill, other (Full strength and neurovascular intact all extremities). Absent: tenderness, pedal edema, joint swelling, calf tenderness Back exam: Present: full ROM, tenderness, paraspinal tenderness. Absent: CVA tenderness (R), CVA tenderness (L), vertebral tenderness Skin exam: Present: warm, dry, intact, normal color. Absent: rash Course Vital Signs 02/20/19 12:16 Temperature 99.0 F Pulse Rate 84 Respiratory 18 Rate Blood Pressure 111/71 O2 Sat by Pulse 99 Oximetry Medical Decision Making - Medical Decision Making 54-year-old male presented from for right-sided neck, back pain. This seems any more pus is felt to nature x-rays are obtained which show no major abnormality's. Urinalysis unremarkable he has no abdominal tenderness. Patient was riding medications and will follow-up with PCP and orthopedics. Return parameters were discussed. - Lab Data Lab Results 02/20/19 Range/Units 13:20 Urine Color Yellow Urine Appearance Clear (Clear) Urine pH 6.0 (5.0-8.0) Ur Specific [place] 1.017 (1.001-1.035) Urine Protein Negative (Negative) Urine Glucose (UA) Negative (Negative) Urine Ketones Negative (Negative) Urine Blood Negative (Negative) Urine Nitrite Negative (Negative) Urine Bilirubin Negative (Negative) Urine Urobilinogen <2.0 (<2.0) mg/dL Ur Leukocyte Esterase Negative (Negative) Disposition Clinical Impression: Neck pain, Lumbar back pain Disposition: HOME SELF-CARE Condition: Stable Instructions (If sedation given, give patient instructions): Acute Low Back Pain (ED) Additional Instructions: Please return to the Emergency Department if symptoms worsen or any other concerns. Prescriptions: Ibuprofen [Motrin] 600 mg PO Q8HR PRN #30 tab PRN Reason: Pain Methocarbamol [Robaxin] 500 mg PO TID PRN #15 tab PRN Reason: muscle spasms Is patient prescribed a controlled substance at d/c from ED?: No Referrals: Darius Cox DO [Doctor of Osteopathic Medicine] - 1-2 days Time of Disposition: 14:07
--- NOTE | 2019-02-20 13:25 | XR ---
EXAMINATION TYPE: XR cervical spine comp DATE OF EXAM: 02/20/2019 COMPARISON: None HISTORY: Right sided neck pain TECHNIQUE: Five-view cervical spine FINDINGS: Prevertebral space is normal. Disc heights are preserved. Vertebral body heights are preser braulio. Posterior spinal lamellar line is intact. Foramen as visualized appear normal. Tip of the odonto id is obscured by the occiput. IMPRESSION: 1. Visualized cervical spine appears unremarkable.
--- NOTE | 2019-02-20 13:30 | XR ---
EXAMINATION TYPE: XR lumbar spine 2 or 3V DATE OF EXAM: 02/20/2019 COMPARISON: None HISTORY: Back pain TECHNIQUE: Three-view lumbar spine FINDINGS: There 5 lumbar-type vertebral bodies. Pedicles are intact. Disc heights are preserved. Vert ebral body heights are preserved. IMPRESSION: 1. Normal three-view lumbar spine
[2019-02-20 13:40] LABS: Appearance,Urine Clear (Clear); Bilirubin,Urine Negative (Negative); Blood,Urine Negative (Negative); Color,Urine Yellow; Glucose,Urine (UA) Negative (Negative); Ketones,Urine Negative (Negative); Leukocyte Esterase,Urine Negative (Negative); Nitrite,Urine Negative (Negative); Protein,Urine Negative (Negative); Specific Gravity,Urine 1.017 (1.001-1.035); Urobilinogen,Urine <2.0 mg/dL (<2.0)
[2019-02-20 14:26] VITALS: BP 103/72
== END 2019-02-20 14:25 | disposition home or self-care (01) ==
LOC: EC 12:08
DX: M54.5 Low back pain (principal); M54.2 Cervicalgia; F41.9 Anxiety disorder, unspecified; F31.9 Bipolar disorder, unspecified; F20.9 Schizophrenia, unspecified; F17.200 Nicotine dependence, unspecified, uncomplicated; Z79.899 Other long term (current) drug therapy; Z88.8 Allergy status to other drugs, medicaments and biological substances
CPT/HCPCS: 72050; 72100; 81003; 99283

== ENCOUNTER 2019-08-12 10:30 | Emergency (ER) | payer OTHER ==
[2019-08-12] MEDS ORDERED: SODIUM CHLORIDE 0.9% 1,000 ML IV STA (10:59)
--- NOTE | 2019-08-12 11:32 | ED ---
Extremity Problem HPI - General Chief complaint: Extremity Problem,Nontraumatic Stated complaint: Toe infection Time Seen by Provider: 08/12/19 10:50 Source: patient Mode of arrival: ambulatory Limitations: no limitations - History of Present Illness Initial comments: Patient is a 54-year-old male presenting to the emergency department with chief complaint of toe pain and dizziness. Patient states several days ago and has noticed pain in his right 4th toe. Today he was able to peel off extra skin which revealed white/pus. States he does have discomfort with ambulation. Denies any fever or chills at home. States over the last several days is also a feeling lightheaded. States this is worse whenever she is standing up from a laying position. States her to come into the ear, his head was spinning. States she has not been drinking as much water as he should. States his lips have also been cracking. Denies any headaches, blurry vision, one-sided weakness or paresthesias, dyspnea, shortness of breath, chest pain, back pain and abdominal pain nausea or vomiting. No history of diabetes - Related Data Home Medications Medication Instructions Recorded Confirmed Benztropine Mesylate [Cogentin] 2 mg PO QAM 06/26/16 02/20/19 Escitalopram Oxalate [Lexapro] 20 mg PO DAILY 06/26/16 02/20/19 Multivitamin [Men's Multi-Vitamin] 1 tab PO DAILY 06/26/16 02/20/19 QUEtiapine FUMARATE [SEROquel] 100 mg PO HS 06/26/16 02/20/19 Paliperidone IM [Invega Sustenna] 234 mg IM Q28D 07/09/16 02/20/19 QUEtiapine [SEROquel] 25 mg PO BID 07/09/16 02/20/19 Previous Rx's Medication Instructions Recorded Ibuprofen [Motrin] 600 mg PO Q8HR PRN #30 tab 02/20/19 Methocarbamol [Robaxin] 500 mg PO TID PRN #15 tab 02/20/19 Meclizine [Antivert] 25 mg PO TID PRN #15 tab 08/12/19 Sulfamethox-Tmp 800-160Mg [Bactrim 1 each PO Q12HR #20 tab 08/12/19 Ds] Allergies Allergy/AdvReac Type Severity Reaction Status Date / Time haloperidol [From Haldol] Allergy Anaphylaxis Verified 02/20/19 12:36 Review of Systems ROS Statement: Those systems with pertinent positive or pertinent negative responses have been documented in the HPI. ROS Other: All systems not noted in ROS Statement are negative. Past Medical History Past Medical History: No Reported History Additional Past Medical History / Comment(s): hernia, inguinal/umb History of Any Multi-Drug Resistant Organisms: None Reported Past Surgical History: Hernia Repair, Orthopedic Surgery Additional Past Surgical History / Comment(s): 05-03-16 robotic assisted lap lt inguinal hernia repair, right foot Past Anesthesia/Blood Transfusion Reactions: No Reported Reaction Past Psychological History: Anxiety, Bipolar, Depression, Schizophrenia Smoking Status: Current every day smoker Past Alcohol Use History: None Reported Past Drug Use History: None Reported - Past Family History Mother Additional Family Medical History / Comment(s): bronchitis Father Family Medical History: No Reported History General Exam Limitations: no limitations General appearance: alert, in no apparent distress Head exam: Present: atraumatic, normocephalic, normal inspection Eye exam: Present: normal appearance, PERRL, EOMI, nystagmus (Lateral, unilateral) Pupils: Present: normal accommodation ENT exam: Present: normal exam, normal oropharynx, mucous membranes dry Neck exam: Present: normal inspection, full ROM Respiratory exam: Present: normal lung sounds bilaterally. Absent: respiratory distress, wheezes Cardiovascular Exam: Present: regular rate, normal rhythm, normal heart sounds Extremities exam: Present: full ROM, tenderness, normal capillary refill, other (+2 ulnar and radial pulses bilaterally. +2 dorsalis pedis and posterior tibialis bilaterally.). Absent: normal inspection (right 4th toe has small skin avulsion. No surrounding erythema. Slightly tender to touch. No discharge noted.) Back exam: Present: normal inspection, full ROM. Absent: tenderness Neurological exam: Present: alert, oriented X3 Psychiatric exam: Present: normal affect, normal mood Skin exam: Present: warm, dry, intact, normal color Course Vital Signs 08/12/19 10:34 Temperature 98.3 F Pulse Rate 82 Respiratory 17 Rate Blood Pressure 137/83 O2 Sat by Pulse 100 Oximetry Medical Decision Making - Medical Decision Making Patient is 54-year-old male presenting to emergency Department with chief com plaint of toe pain and dizziness. An exam patient appears to have pulled a callus of his right fourth toe which cause him to have exposed tissue. No surrounding erythema or cellulitic changes noted. Patient does report pus prior to ED arrival. No fevers or chills. Patient also been complaining of some dizziness where his "head was spinning". Patient did also reports some lightheadedness especially after getting up from a laying or sitting position. EKG shows left axis deviation with a right bundle branch block. Q waves and Inverted T waves in lead III. Initial troponin is negative. Patient had an echo and a stress test by Dr. Caruso from 3 years ago. CBC and CMP are unremarkable. On exam patient also appears to have unilateral nystagmus suggesting vertigo. Patient given Antivert in the ED. He is able to ambulate. Dressing applied to the toe. Patient will be discharged with Bactrim for possible infection of the toe and vertigo. Return parameters were thoroughly discussed with patient is under sitting and agreeable. Case discussed with physician. - Lab Data Result diagrams: 08/12/19 11:13 08/12/19 11:13 Lab Results 08/12/19 08/12/19 08/12/19 Range/Units 11:13 11:13 11:13 WBC 6.5 (3.8-10.6) k/uL RBC 5.25 (4.30-5.90) m/uL Hgb 12.7 L (13.0-17.5) gm/dL Hct 40.5 (39.0-53.0) % MCV 77.1 L (80.0-100.0) fL MCH 24.3 L (25.0-35.0) pg MCHC 31.5 (31.0-37.0) g/dL RDW 14.1 (11.5-15.5) % Plt Count 174 (150-450) k/uL Neutrophils % 68 % Lymphocytes % 19 % Monocytes % 6 % Eosinophils % 3 % Basophils % 1 % Neutrophils # 4.4 (1.3-7.7) k/uL Lymphocytes # 1.2 (1.0-4.8) k/uL Monocytes # 0.4 (0-1.0) k/uL Eosinophils # 0.2 (0-0.7) k/uL Basophils # 0.1 (0-0.2) k/uL Sodium 137 (137-145) mmol/L Potassium 4.3 (3.5-5.1) mmol/L Chloride 101 (98-107) mmol/L Carbon Dioxide 24 (22-30) mmol/L Anion Gap 12 mmol/L BUN 5 L (9-20) mg/dL Creatinine 0.82 (0.66-1.25) mg/dL Est GFR (CKD-EPI)AfAm >90 (>60 ml/min/1.73 sqM) Est GFR (CKD-EPI)NonAf >90 (>60 ml/min/1.73 sqM) Glucose 94 (74-99) mg/dL Calcium 9.5 (8.4-10.2) mg/dL Total Bilirubin 0.4 (0.2-1.3) mg/dL AST 54 (17-59) U/L ALT 32 (4-49) U/L Alkaline Phosphatase 86 (38-126) U/L Troponin I <0.012 (0.000-0.034) ng/mL Total Protein 8.8 H (6.3-8.2) g/dL Albumin 4.9 (3.5-5.0) g/dL Disposition Clinical Impression: Vertigo, Avulsion of skin of toe Disposition: HOME SELF-CARE Condition: Stable Additional Instructions: Take prescribed medication as directed. Follow-up with primary care. Return to emergency department if symptoms worsen. Prescriptions: Meclizine [Antivert] 25 mg PO TID PRN #15 tab PRN Reason: Vertigo Is patient prescribed a controlled substance at d/c from ED?: No Referrals: [facility] [Primary Care Provider] - 1-2 days Time of Disposition: 13:09
[2019-08-12 11:40] LABS: Basophils # (A) 0.1 k/uL (0-0.2); Basophils % (A) 1 %; Eosinophils # (A) 0.2 k/uL (0-0.7); Eosinophils % (A) 3 %; HCT 40.5 % (39.0-53.0); HGB 12.7 gm/dL (13.0-17.5); Lymphocytes # (A) 1.2 k/uL (1.0-4.8); Lymphocytes % (A) 19 %; MCH 24.3 pg (25.0-35.0); MCHC 31.5 g/dL (31.0-37.0); MCV 77.1 fL (80.0-100.0); Mean Platelet Volume 7.9; Monocytes # (A) 0.4 k/uL (0-1.0); Monocytes % (A) 6 %; Neutrophils # (A) 4.4 k/uL (1.3-7.7); Neutrophils % (A) 68 %; Platelet Count 174 k/uL (150-450); RBC 5.25 m/uL (4.30-5.90); RDW 14.1 % (11.5-15.5); WBC 6.5 k/uL (3.8-10.6)
[2019-08-12 11:53] LABS: ALT 32 U/L (4-49); AST 54 U/L (17-59); African American GFR (CKD) >90 (>60 ml/min/1.73 sqM); Albumin 4.9 g/dL (3.5-5.0); Alkaline Phosphatase 86 U/L (38-126); Anion Gap 12 mmol/L; Blood Urea Nitrogen 5 mg/dL (9-20); Calcium 9.5 mg/dL (8.4-10.2); Carbon Dioxide 24 mmol/L (22-30); Chloride 101 mmol/L (98-107); Glucose 94 mg/dL (74-99); Non-African American GFR(CKD) >90 (>60 ml/min/1.73 sqM); Potassium 4.3 mmol/L (3.5-5.1); Sodium 137 mmol/L (137-145); Total Bilirubin 0.4 mg/dL (0.2-1.3); Total Protein 8.8 g/dL (6.3-8.2)
[2019-08-12] MEDS ORDERED: MECLIZINE 12.5 MG TAB PO STA (12:55)
[2019-08-12 13:14] VITALS: BP 142/88; PULSE 81; RESP 18; TEMP 97.9
== END 2019-08-12 13:17 | disposition home or self-care (01) ==
LOC: EC 10:30
DX: R42 Dizziness and giddiness (principal); S91.104A Unspecified open wound of right lesser toe(s) without damage to nail, initial encounter; I45.10 Unspecified right bundle-branch block; F41.9 Anxiety disorder, unspecified; F31.9 Bipolar disorder, unspecified; F20.9 Schizophrenia, unspecified; F17.200 Nicotine dependence, unspecified, uncomplicated; Z79.899 Other long term (current) drug therapy; Z88.8 Allergy status to other drugs, medicaments and biological substances; X58.XXXA Exposure to other specified factors, initial encounter
CPT/HCPCS: 36415; 80053; 84484; 85025; 93005; 96360; 99283

== ENCOUNTER 2019-10-31 14:31 | Observation (INO) | payer OTHER ==
[2019-10-31] MEDS ORDERED: ASPIRIN 81 MG PO STA (14:47)
--- NOTE | 2019-10-31 14:54 | ED ---
Chest Pain HPI - General Source: patient Mode of arrival: ambulatory Limitations: no limitations <Kevin Zelaya - Last Filed: 10/31/19 16:34> <Haritha Mcdaniel - Last Filed: 11/04/19 11:31> - General Chief Complaint: Chest Pain Stated Complaint: Chest pain Time Seen by Provider: 10/31/19 14:45 - History of Present Illness Initial Comments: Patient is a 54-year-old male with history of hyperlipidemia, hypertension and a smoker presenting to the emergency department with a chief complaint of chest pain. Patient reports this feels like pressure/tightness in the midsternal left side of the chest without any radiation. States the symptoms of an ongoing for the past 3 days with gradual increase in severity. States the pain is not reducible with palpation. Reports last night he also had an episode of S a dizziness along with bilateral hand tingling but no numbness or visual changes. States last night he also developed some shortness of breath. Denies any diaphoretic episodes, nausea or vomiting. Patient reports tingling sensation in bilateral feet for several months. States he could potentially be diabetic but was never tested. States strong family history of diabetes. Denies history of blood clots, recent hospitalizations, prolonged periods of activity, undergoing chemotherapy treatment, unilateral calf pain or swelling. Denies hemoptysis. (Kevin Zelaya) - Related Data Home Medications Medication Instructions Recorded Confirmed Escitalopram Oxalate [Lexapro] 20 mg PO DAILY 06/26/16 10/31/19 Ferrous Sulfate [Iron (65 MG 325 mg PO DAILY 10/31/19 10/31/19 Elemental)] Magnesium Oxide 200 mg PO DAILY 10/31/19 10/31/19 QUEtiapine FUMARATE [SEROquel] 200 mg PO HS 10/31/19 10/31/19 Previous Rx's Medication Instructions Recorded Ibuprofen [Motrin] 600 mg PO Q8HR PRN #30 tab 02/20/19 Atorvastatin [Lipitor] 40 mg PO HS #30 tab 11/02/19 Multivitamins, Thera [Multivitamin 1 tab PO DAILY #30 tablet 11/02/19 (formulary)] Pantoprazole [Protonix] 40 mg PO DAILY #30 tablet. 11/02/19 Allergies Allergy/AdvReac Type Severity Reaction Status Date / Time haloperidol [From Haldol] Allergy Anaphylaxis Verified 10/31/19 16:17 Review of Systems ROS Other: All systems not noted in ROS Statement are negative. <Kevin Zelaya - Last Filed: 10/31/19 16:34> ROS Other: All systems not noted in ROS Statement are negative. <Haritha Mcdaniel - Last Filed: 11/04/19 11:31> ROS Statement: Those systems with pertinent positive or pertinent negative responses have been documented in the HPI. EKG Findings - EKG Comments: EKG Findings:: Sinus rhythm, right bundle branch block, bifascicular block. Similar EKG to 08/21/19. Ventricular rate 67, TX 136, QRS 136, QTC 458. <Kevin Zelaya - Last Filed: 10/31/19 16:34> Past Medical History Past Medical History: No Reported History Additional Past Medical History / Comment(s): hernia, inguinal/umb History of Any Multi-Drug Resistant Organisms: None Reported Past Surgical History: Hernia Repair, Orthopedic Surgery Additional Past Surgical History / Comment(s): 05-03-16 robotic assisted lap lt inguinal hernia repair, right foot Past Anesthesia/Blood Transfusion Reactions: No Reported Reaction Past Psychological History: Anxiety, Bipolar, Depression, Schizophrenia Smoking Status: Current every day smoker Past Alcohol Use History: Daily Past Drug Use History: None Reported - Past Family History Mother Additional Family Medical History / Comment(s): bronchitis Father Family Medical History: No Reported History <Kevin Zelaya - Last Filed: 10/31/19 16:34> General Exam Limitations: no limitations General appearance: alert, in no apparent distress Head exam: Present: atraumatic, normocephalic, normal inspection Eye exam: Present: normal appearance, PERRL, EOMI Pupils: Present: normal accommodation ENT exam: Present: normal exam, normal oropharynx, mucous membranes moist Neck exam: Present: normal inspection, full ROM Respiratory exam: Present: normal lung sounds bilaterally. Absent: respiratory distress, wheezes, rales, chest wall tenderness Cardiovascular Exam: Present: regular rate, normal rhythm, normal heart sounds Extremities exam: Present: normal inspection, full ROM, normal capillary refill, other (+2 ulnar and radial pulses bilaterally. +2 dorsalis pedis and posterior tibialis bilaterally.). Absent: pedal edema, joint swelling, calf tenderness (Negative Homans bilaterally) Back exam: Present: normal inspection, full ROM Neurological exam: Present: alert, oriented X3 Psychiatric exam: Present: normal affect, normal mood Skin exam: Present: warm, dry, intact, normal color <QuyenCedric jollyo - Last Filed: 10/31/19 16:34> Course Vital Signs 10/31/19 10/31/19 10/31/19 14:34 14:48 15:22 Temperature 97.8 F Pulse Rate 80 66 Pulse Rate [ 82 Audit Tech ] Respiratory 18 18 Rate Blood Pressure 160/85 151/93 O2 Sat by Pulse 98 98 Oximetry 10/31/19 16:47 Temperature Pulse Rate 56 L Pulse Rate [ Audit Tech ] Respiratory 18 Rate Blood Pressure 127/85 O2 Sat by Pulse 98 Oximetry Chest Pain MDM - Differential Diagnosis ACS <Kevin Zelaya - Last Filed: 10/31/19 16:34> <Haritha Mcdaniel - Last Filed: 11/04/19 11:31> - MDM Patient is 54-year-old male with history of presenting to emergency Department with chief complaint of chest pain. Patient has typical chest pain with atypical features. Shortness of breath at rest. Chest x-ray is unremarkable. EKG shows a sinus rhythm with a bifascicular block. EKG appears similar to his most recent on 08/21/19. Initial troponin is negative. CBC and CMP are unremarkable. Patient was given aspirin and nitro. Patient does report some improvement in symptoms but the pressure is still persistent. Patient is a heart score of 4. wells score of 0. Patient will be admitted for cardiac mon itoring an OR rule out. Case discussed with Admitting physician is Cardiology on consult. (Kevin Zelaya) I was available for consultation in the emergency department. The history and physical exam were done by the midlevel provider. I was consulted for this patients care. I reviewed the case with the midlevel provider and based on their presentation of the patient, I agree with the assessment, medical decision making and plan of care as documented. Chart was dictated using [employer] dictation software. Attempts were made to correct any dictation errors however some typographical errors may persist. Patient was seen during a national state of emergency due to the Covid-19 pandemic. (Haritha Mcdaniel) Disposition Is patient prescribed a controlled substance at d/c from ED?: No Time of Disposition: 16:23 <Kevin Zelaya - Last Filed: 10/31/19 16:34> <Haritha Mcdaniel - Last Filed: 11/04/19 11:31> Clinical Impression: Chest pain Disposition: ADMITTED IP TO THIS HOSP Condition: Stable
[2019-10-31] MEDS ORDERED: NITROGLYCERIN SL TABS 0.4 MG TAB SUBLINGUAL PRN ×2 (15:02→16:32)
[2019-10-31 15:10] LABS: Basophils # (A) 0.1 k/uL (0-0.2); Basophils % (A) 1 %; Eosinophils # (A) 0.2 k/uL (0-0.7); Eosinophils % (A) 3 %; Hypochromasia Slight; Lymphocytes % (A) 35 %; MCH 24.8 pg (25.0-35.0); MCHC 31.7 g/dL (31.0-37.0); MCV 78.2 fL (80.0-100.0); Mean Platelet Volume 7.6; Monocytes # (A) 0.4 k/uL (0-1.0); Monocytes % (A) 7 %; Neutrophils % (A) 52 %; Platelet Count 219 k/uL (150-450); RBC 5.25 m/uL (4.30-5.90); WBC 5.7 k/uL (3.8-10.6)
--- NOTE | 2019-10-31 15:15 | XR ---
EXAMINATION TYPE: XR chest 2V DATE OF EXAM: 10/31/2019 COMPARISON: 07/09/2016 HISTORY: Chest pain TECHNIQUE: FINDINGS: Heart and mediastinum are normal. Lungs are clear. Diaphragm is normal. Bony thorax appears normal. IMPRESSION: Normal chest. No change.
[2019-10-31 15:19] LABS: Partial Thromboplastin Time 26.1 sec (22.0-30.0)
[2019-10-31 15:23] LABS: ALT 44 U/L (4-49); AST 64 U/L (17-59); African American GFR (CKD) >90 (>60 ml/min/1.73 sqM); Albumin 4.9 g/dL (3.5-5.0); Alkaline Phosphatase 88 U/L (38-126); Anion Gap 13 mmol/L; Blood Urea Nitrogen 9 mg/dL (9-20); Calcium 9.7 mg/dL (8.4-10.2); Carbon Dioxide 20 mmol/L (22-30); Chloride 102 mmol/L (98-107); Glucose 93 mg/dL (74-99); Magnesium 1.5 mg/dL (1.6-2.3); Non-African American GFR(CKD) >90 (>60 ml/min/1.73 sqM); Potassium 4.3 mmol/L (3.5-5.1); Sodium 135 mmol/L (137-145); Total Bilirubin 0.7 mg/dL (0.2-1.3); Total Protein 9.2 g/dL (6.3-8.2)
[2019-10-31] MEDS ORDERED: ONDANSETRON 4 MG/2 ML VIAL IVP PRN (17:30)
[2019-10-31] MEDS ORDERED: MORPHINE SULFATE 4 MG/ML SYRINGE IV PRN (17:30)
[2019-10-31] MEDS ORDERED: NALOXONE 0.4 MG/ML 1 ML VIAL IV PRN (17:30)
--- NOTE | 2019-10-31 17:59 | P.HPIM ---
History of Present Illness H&P Date: 10/31/19 Chief Complaint: chest pain 54 yo male with Hx of HLD, HTN presents with chest pain evaluation. Pain started 2 days ago, described as substernal, non radiating, pressure like, intermittent, lasting a few minutes, worse with activity and have been increasing in intensity. His pain has also been associated with dizziness, hand tingling and some shortness of breath. denies any cough, fever or chills. He had a stress test 3 years ago which was normal. He does not take aspirin at home, current active smoker, with strong family history for CAD. Vitals were stable in the ED, troponin normal, EKG shows a left fasicular block, no ST elevation or depression, no T wave inversion. Will be placed in observation for ACS rule out Review of Systems Constitutional: Denies chills, Denies fever, Denies sweats, Denies weakness Cardiovascular: Reports chest pain, Reports dyspnea on exertion, Reports lightheadedness, Reports shortness of breath, Denies orthopnea, Denies palpitations Respiratory: Denies congestion, Denies cough, Denies home oxygen, Denies respiratory infections Gastrointestinal: Denies abdominal pain, Denies diarrhea, Denies nausea, Denies vomiting Musculoskeletal: Reports leg numbness/tingling, Denies gait dysfunction, Denies myalgias Neurological: Denies ataxia, Denies headaches Psychiatric: Reports sleep disturbances Past Medical History Past Medical History: No Reported History, Chest Pain / Angina Additional Past Medical History / Comment(s): hernia, inguinal/umb, dizzyness when laying down or standing too quickly History of Any Multi-Drug Resistant Organisms: None Reported Past Surgical History: Hernia Repair, Orthopedic Surgery Additional Past Surgical History / Comment(s): 05-03-16 robotic assisted lap lt inguinal hernia repair, right foot Past Anesthesia/Blood Transfusion Reactions: No Reported Reaction Past Psychological History: Anxiety, Bipolar, Depression, Schizophrenia Additional Psychological History / Comment(s): bipolar/depression listed on previous listed, when asked if he had bipolar depression he statee" i have anxiety and schizophrenia" Smoking Status: Current every day smoker Past Alcohol Use History: Daily Additional Past Alcohol Use History / Comment(s): started smoking at age 20 1/2 ppd. Past Drug Use History: None Reported - Past Family History Mother Family Medical History: Cancer Additional Family Medical History / Comment(s): bronchitis Father Family Medical History: No Reported History Medications and Allergies Home Medications Medication Instructions Recorded Confirmed Type Escitalopram Oxalate [Lexapro] 20 mg PO DAILY 06/26/16 10/31/19 History Multivitamin [Men's Multi-Vitamin] 1 tab PO DAILY 06/26/16 10/31/19 History Ibuprofen [Motrin] 600 mg PO Q8HR PRN #30 tab 02/20/19 10/31/19 Rx Ferrous Sulfate [Feosol] 325 mg PO DAILY 10/31/19 10/31/19 History Magnesium Oxide 200 mg PO DAILY 10/31/19 10/31/19 History QUEtiapine FUMARATE [SEROquel] 200 mg PO HS 10/31/19 10/31/19 History Allergies Allergy/AdvReac Type Severity Reaction Status Date / Time haloperidol [From Haldol] Allergy Anaphylaxis Verified 10/31/19 16:17 Physical Exam Osteopathic Statement: *. No significant issues noted on an osteopathic structural exam other than those noted in the History and Physical/Consult. Vitals: Vital Signs Temp Pulse Pulse Resp BP BP Pulse Ox 10/31/19 17:00 96.5 F L 70 16 134/92 99 10/31/19 16:47 56 L 18 127/85 98 10/31/19 15:22 66 18 151/93 98 10/31/19 14:48 82 10/31/19 14:34 97.8 F 80 18 160/85 98 Intake and Output 10/31/19 10/31/19 10/31/19 06:59 14:59 22:59 Other: Weight 102.058 kg 102.058 kg - Constitutional General appearance: average body habitus, cooperative, no acute distress - EENT Eyes: EOMI, PERRLA - Respiratory Respiratory: bilateral: CTA - Cardiovascular Rhythm: regular Heart sounds: normal: S1, S2 Abnormal Heart Sounds: no systolic murmur, no diastolic murmur - Gastrointestinal General gastrointestinal: no distended, normal bowel sounds, no tenderness - Integumentary Integumentary: no jaundiced, no pale - Neurologic Neurologic: CNII-XII intact - Musculoskeletal Musculoskeletal: gait normal - Psychiatric Psychiatric: A&O x's 3, appropriate affect Results CBC & Chem 7: 10/31/19 15:00 10/31/19 15:00 Labs: Abnormal Lab Results - Last 24 Hours (Table) 10/31/19 10/31/19 Range/Units 15:00 15:00 MCV 78.2 L (80.0-100.0) fL MCH 24.8 L (25.0-35.0) pg Sodium 135 L (137-145) mmol/L Carbon Dioxide 20 L (22-30) mmol/L Magnesium 1.5 L (1.6-2.3) mg/dL AST 64 H (17-59) U/L Total Protein 9.2 H (6.3-8.2) g/dL Thrombosis Risk Factor Assmnt - Choose All That Apply Any of the Below Risk Factors Present?: Yes Each Factor Represents 1 point: Age 41-60 years, Obesity (BMI >25) Other Risk Factors: No Other congenital or acquired thrombophilia - If yes, enter type in comment: No Thrombosis Risk Factor Assessment Total Risk Factor Score: 2 Thrombosis Risk Factor Assessment Level: Low Risk Assessment and Plan Assessment: # Chest Pain-rule out ACS -BURTON Score 4 -troponin normal, continue to trend -EKG shows NSR, no ST changes, left fasicular block -nitroglycerin prn chest pain -cardiac telemetry -stress test in am -cardiology consult # Depression -continue Lexapro # Regular Diet, NPO after midnight
[2019-10-31] MEDS: QUEtiapine 200 MG TAB PO SCH (21:39)
[2019-11-01 03:56] LABS: Cholesterol 236 mg/dL (<200); HDL Cholesterol 43 mg/dL (40-60); LDL Cholesterol,Calculated 155 mg/dL (0-99); Triglycerides 188 mg/dL (<150)
--- NOTE | 2019-11-01 07:30 | P.CRDCN ---
History of Present Illness Consult date: 11/01/19 Chief complaint: Chest pain History of present illness: This is a 54-year-old -[place] gentleman with no prior cardiac history nor diabetes or hypertension or dyslipidemia but history of schizophrenia as well as history of alcohol use was admitted to the hospital through the emergency department with a chest discomfort. The patient somewhat is a poor historian. He stated that for the last 3 days he has been experiencing intermittent episodes of chest discomfort. The patient described her discomfort as sharp, in the mid of the chest, without any radiation to the arms or neck or shoulders, and without any associated symptoms of shortness of breath, sweating, dizziness, heart racing, or syncope. The chest discomfort according to him is nonexertional. No documented history of coronary artery disease and no diabetes or hypertension or dyslipidemia. The patient does smoke. No documented history according to him of premature coronary artery disease in his family. During this admission, the chest x-ray showed no acute abnormalities. The EKG showed sinus rhythm with RBBB and nonspecific changes inferiorly. Three sets of cardiac enzymes were checked and came in to be unremarkable. The patient continues to be chest pain-free through his hospital stay. He was admitted to the hospital back in 2017 with a chest discomfort and he was ruled out for acute coronary event and at that point he underwent a stress test and that came in to be unremarkable. Past Medical History Past Medical History: No Reported History, Chest Pain / Angina Additional Past Medical History / Comment(s): hernia, inguinal/umb, dizzyness when laying down or standing too quickly History of Any Multi-Drug Resistant Organisms: None Reported Past Surgical History: Hernia Repair, Orthopedic Surgery Additional Past Surgical History / Comment(s): 05-03-16 robotic assisted lap lt inguinal hernia repair, right foot Past Anesthesia/Blood Transfusion Reactions: No Reported Reaction Past Psychological History: Anxiety, Bipolar, Depression, Schizophrenia Additional Psychological History / Comment(s): bipolar/depression listed on pre vious listed, when asked if he had bipolar depression he statee" i have anxiety and schizophrenia" Smoking Status: Current every day smoker Past Alcohol Use History: Daily Additional Past Alcohol Use History / Comment(s): started smoking at age 20 1/2 ppd. Past Drug Use History: None Reported - Past Family History Mother Family Medical History: Cancer Additional Family Medical History / Comment(s): bronchitis Father Family Medical History: No Reported History Medications and Allergies Home Medications Medication Instructions Recorded Confirmed Type Escitalopram Oxalate [Lexapro] 20 mg PO DAILY 06/26/16 10/31/19 History Multivitamin [Men's Multi-Vitamin] 1 tab PO DAILY 06/26/16 10/31/19 History Ibuprofen [Motrin] 600 mg PO Q8HR PRN #30 tab 02/20/19 10/31/19 Rx Ferrous Sulfate [Feosol] 325 mg PO DAILY 10/31/19 10/31/19 History Magnesium Oxide 200 mg PO DAILY 10/31/19 10/31/19 History QUEtiapine FUMARATE [SEROquel] 200 mg PO HS 10/31/19 10/31/19 History Allergies Allergy/AdvReac Type Severity Reaction Status Date / Time haloperidol [From Haldol] Allergy Anaphylaxis Verified 10/31/19 16:17 Physical Exam Vitals: Vital Signs Temp Pulse Pulse Resp BP BP Pulse Ox 11/01/19 03:00 84 16 11/01/19 02:56 96.2 F L 84 16 120/69 96 10/31/19 22:57 73 16 10/31/19 22:54 96.3 F L 73 16 119/68 100 10/31/19 20:00 53 L 16 10/31/19 19:30 97.9 F 53 L 16 139/86 100 10/31/19 17:00 96.5 F L 70 16 134/92 99 10/31/19 16:47 56 L 18 127/85 98 10/31/19 15:22 66 18 151/93 98 10/31/19 14:48 82 10/31/19 14:34 97.8 F 80 18 160/85 98 Intake and Output 10/31/19 11/01/19 11/01/19 22:59 06:59 14:59 Intake Total 420 Balance 420 Intake: Oral 420 Other: Voiding Method Toilet Toilet # Voids 1 Weight 102.058 kg - Constitutional General appearance: no acute distress - Respiratory Respiratory: bilateral: CTA - Cardiovascular Rhythm: regular Heart sounds: normal: S1, S2 Abnormal Heart Sounds: systolic murmur Results 10/31/19 15:00 10/31/19 15:00 Cardiac Enzymes 10/31/19 10/31/19 10/31/19 Range/Units 15:00 15:00 21:09 AST 64 H (17-59) U/L Troponin I <0.012 <0.012 (0.000-0.034) ng/mL 11/01/19 Range/Units 02:23 AST (17-59) U/L Troponin I <0.012 (0.000-0.034) ng/mL Coagulation 10/31/19 Range/Units 15:00 PT 10.0 (9.0-12.0) sec APTT 26.1 (22.0-30.0) sec Lipids 11/01/19 Range/Units 02:23 Triglycerides 188 H (<150) mg/dL Cholesterol 236 H (<200) mg/dL HDL Cholesterol 43 (40-60) mg/dL CBC 10/31/19 Range/Units 15:00 WBC 5.7 (3.8-10.6) k/uL RBC 5.25 (4.30-5.90) m/uL Hgb 13.0 (13.0-17.5) gm/dL Hct 41.0 (39.0-53.0) % Plt Count 219 (150-450) k/uL Comprehensive Metabolic Panel 10/31/19 Range/Units 15:00 Sodium 135 L (137-145) mmol/L Potassium 4.3 (3.5-5.1) mmol/L Chloride 102 (98-107) mmol/L Carbon Dioxide 20 L (22-30) mmol/L BUN 9 (9-20) mg/dL Creatinine 0.85 (0.66-1.25) mg/dL Glucose 93 (74-99) mg/dL Calcium 9.7 (8.4-10.2) mg/dL AST 64 H (17-59) U/L ALT 44 (4-49) U/L Alkaline Phosphatase 88 (38-126) U/L Total Protein 9.2 H (6.3-8.2) g/dL Albumin 4.9 (3.5-5.0) g/dL Current Medications Generic Name Dose Route Start Last Admin Trade Name Freq PRN Reason Stop Dose Admin Aspirin 325 mg 11/01/19 09:00 Aspirin PO DAILY [facility] Escitalopram Oxalate 20 mg 11/01/19 09:00 Lexapro PO DAILY JUSTIN Ferrous Sulfate 325 mg 11/01/19 09:00 Feosol PO DAILY [facility] Morphine Sulfate 4 mg 10/31/19 17:30 Morphine Sulfate (Inj) IV Q4HR PRN Severe Pain Naloxone HCl 0.2 mg 10/31/19 17:30 Narcan IV Q2M PRN Opioid Reversal Nitroglycerin 0.4 mg 10/31/19 16:32 Nitrostat SUBLINGUAL Q5M PRN Chest Pain Ondansetron HCl 4 mg 10/31/19 17:30 Zofran IVP Q8HR PRN Nausea And Vomiting Quetiapine Fumarate 200 mg 10/31/19 21:00 10/31/19 21:39 Seroquel PO 200 mg HS JUSTIN Administration Intake and Output 10/31/19 11/01/19 11/01/19 22:59 06:59 14:59 Intake Total 420 Balance 420 Intake: Oral 420 Other: Voiding Method Toilet Toilet # Voids 1 Weight 102.058 kg 10/31/19 15:00 10/31/19 15:00 Assessment and Plan Assessment: Assessment #1 intermittent episodes of atypical chest discomfort #2 significant history of smoking #3 multiple psychiatric disorder #4 alcohol use Plan #1 acute coronary event was ruled out #2 stress test to be done tomorrow morning #3 further recommendation to follow that Thank you for allowing us participate in his care
[2019-11-01] MEDS: FERROUS SULFATE 325 MG TAB PO SCH (07:43)
[2019-11-01] MEDS: ASPIRIN 325 MG TAB PO SCH (07:43)
[2019-11-01] MEDS: ESCITALOPRAM 20 MG TAB PO SCH (07:43)
--- NOTE | 2019-11-01 11:27 | P.PN ---
Subjective Progress Note Date: 11/01/19 Principal diagnosis: Chest pain 54 yo male admitted yesterday with chest pain-rule out ACS. His EKG shows bifasicular block no ST changes, troponin normal. Chest pain has resolved, denies any dyspnea, no cough fevers or chills. His BP and HR have been normal, however he becomes tachycardic in the 120-130's when he gets up to walk, denies any symptoms however. Stress Echo scheduled for tomorrow. Objective - Vital Signs Vital signs: Vital Signs Temp 97.1 F L 11/01/19 07:40 Pulse 69 11/01/19 07:40 Resp 16 11/01/19 07:40 BP 120/77 11/01/19 07:40 Pulse Ox 98 11/01/19 07:40 Intake & Output 10/31/19 11/01/19 11/01/19 18:59 06:59 18:59 Intake Total 420 300 Balance 420 300 Weight 102.058 kg Intake: Oral 420 300 Other: Voiding Method Toilet Toilet Toilet # Voids 1 1 - Exam - Constitutional General appearance: average body habitus, cooperative, no acute distress - EENT Eyes: EOMI, PERRLA - Respiratory Respiratory: bilateral: CTA - Cardiovascular Rhythm: regular Heart sounds: normal: S1, S2 Abnormal Heart Sounds: no systolic murmur, no diastolic murmur - Gastrointestinal General gastrointestinal: no distended, normal bowel sounds, no tenderness - Integumentary Integumentary: no jaundiced, no pale - Neurologic Neurologic: CNII-XII intact - Musculoskeletal Musculoskeletal: gait normal - Psychiatric Psychiatric: A&O x's 3, appropriate affect - Labs CBC & Chem 7: 10/31/19 15:00 10/31/19 15:00 Labs: Abnormal Lab Results - Last 24 Hours (Table) 10/31/19 10/31/19 11/01/19 Range/Units 15:00 15:00 02:23 MCV 78.2 L (80.0-100.0) fL MCH 24.8 L (25.0-35.0) pg Sodium 135 L (137-145) mmol/L Carbon Dioxide 20 L (22-30) mmol/L Magnesium 1.5 L (1.6-2.3) mg/dL AST 64 H (17-59) U/L Total Protein 9.2 H (6.3-8.2) g/dL Triglycerides 188 H (<150) mg/dL Cholesterol 236 H (<200) mg/dL LDL Cholesterol, Calc 155 H (0-99) mg/dL Assessment and Plan Assessment: # Chest Pain-rule out ACS -chest pain has resolved -BURTON Score 4 -troponin normal -EKG shows NSR, no ST changes, left fasicular block -nitroglycerin prn chest pain -cardiac telemetry -stress Echo scheduled for 11/02/2019 # Tachycardia -induced with activity -will check orthostati vitals, may be due to dehydration # HLD -started on Atorvastatin 40 mg # Depression -continue Lexapro # Regular Diet, NPO after midnight
[2019-11-01] MEDS: LACTATED RINGERS 1,000 ML IV SCH ×4 (12:02→14:25)
[2019-11-01] MEDS ORDERED: ACETAMINOPHEN TAB 325 MG TAB PO PRN (12:29)
[2019-11-01] MEDS ORDERED: LACTATED RINGERS 1,000 ML IV SCH (14:00)
[2019-11-01 20:29] VITALS: RESP 18
[2019-11-01] MEDS: QUEtiapine 200 MG TAB PO SCH (20:40)
[2019-11-01] MEDS ORDERED: ATORVASTATIN 40 MG TAB PO SCH (21:00)
[2019-11-02 08:12] VITALS: TEMP 98.1
[2019-11-02] MEDS: ASPIRIN 325 MG TAB PO SCH (10:09)
[2019-11-02] MEDS: FERROUS SULFATE 325 MG TAB PO SCH (10:09)
[2019-11-02] MEDS: ESCITALOPRAM 20 MG TAB PO SCH (10:10)
[2019-11-02 10:42] LABS: Hemoglobin A1C 5.9 % (4.0-6.0)
[2019-11-02 13:16] VITALS: BP 121/70; PULSE 66
--- NOTE | 2019-11-02 14:59 | P.PN ---
Subjective Patient is seen and examined in no acute distress. He states this morning when he woke up he felt a sharp pain in the right anterior chest wall that was brief lasting less than 5 minutes and subsided on its own. Breathing is stable. No dizziness or palpitations. Blood pressure 121/70 heart rate 66 afebrile and maintaining oxygen saturation on room air. Laboratory data reviewed, cardiac enzymes negative x3, LDL 15, HDL 43, triglycerides 188 and total cholesterol 236. GENERAL: Well-appearing, well-nourished and in no acute distress. NECK: Supple without JVD or thyromegaly. LUNGS: Breath sounds clear to auscultation bilaterally. Respiration equal and unlabored. No wheezes, rales or rhonchi. HEART: Regular rate and rhythm without murmurs, rubs or gallops. S1 and S2 heard. EXTREMITIES: Normal range of motion, no edema. No clubbing or cyanosis. Peripheral pulses intact. ASSESSMENT Chest pain, atypical. An acute coronary event has been ruled out. Dyslipidemia Chronic nicotine dependence Schizophrenia Alcohol abuse PLAN Recommend lifestyle modifications along with statin therapy for lowering of LDL cholesterol. Stress echocardiogram was obtained and reviewed. No evidence of stress induced ischemia. Follow up in the office with Dr. Tate in 2 weeks. Nurse Practitioner note has been reviewed, I agree with a documented findings a nd plan of care. Patient was seen and examined. Objective - Vital Signs Vital signs: Vital Signs Temp 98.1 F 11/02/19 08:00 Pulse 66 11/02/19 12:00 Resp 18 11/02/19 12:00 BP 121/70 11/02/19 12:00 Pulse Ox 99 11/02/19 12:00 Intake & Output 11/01/19 11/02/19 11/02/19 18:59 06:59 18:59 Intake Total 960 Balance 960 Weight 102.06 kg Intake: Oral 960 Other: Voiding Method Toilet Toilet Toilet # Voids 1 1 1 - Labs CBC & Chem 7: 10/31/19 15:00 10/31/19 15:00
--- NOTE | 2019-11-02 15:19 | P.STRESS ---
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 He is fatigued by that time Peak heart rate 155 beats a minute, normal blood pressure response to exercise There was no definite ECG ms for ischemia Baseline 2-D echo images showed normal limits and systolic function without any segmental wall motion abnormalities At peak exercise there was augmentation of oral LV contractility without development of any wall motion abnormalities @Recovery region global LV systolic function remained normal Impression low average exercise capacity on a Burak protocol without ECG ms ischemia No echo cardio graphic ms ischemia Underlying right bundle branch block left anterior fascicular block
--- NOTE | 2019-11-02 15:31 | P.DS ---
Providers Date of admission: 10/31/19 16:25 Expected date of discharge: 11/02/19 Attending physician: Sue Shea MD Consults: 10/31/19 16:32 Consult Physician Urgent Consulting Provider: Judd Rendon Consult Reason/Comments: Chest pain, [place] rule out Do you want consulting provider notified?: Yes Primary care physician: [facility] Course: Discharge Diagnosis: atypical chest pain GERD HLD HTN Hypomagnesemia Schizophrenia Hospital Course: Patient is a 54-year-old -[place] male with a past medical history of hypertension, dyslipidemia, hernia, and schizophrenia who presented to the emergency department with complaints of chest pain. In the ER he underwent an extensive evaluation. On initial vital signs he was slightly hypertensive with a blood pressure 160/85. Initial laboratory analysis showed no significant abnormalities. Magnesium was slightly low at 1.5. Troponin was negative. He's given an aspirin his minute his chest pain observation. Cardiology was consulted. The remainder of his troponins were negative. He remained chest pain-free during his hospital stay. He underwent an exercise stress echo on 11/01 which showed no signs of reversible ischemia. He was started on cholesterol medication as his total cholesterol is 236 and LDL 155. He was also started on Protonix as he stated that he had been using Tums and Pepto-Bismol but they have become less effective. He was discharged home in stable condition to follow-up with his primary care provider out of the [facility]. Patient seen and examined at bedside. States he tolerated stress test well. He was working out and short of breath by the end. He denies any recurrent chest p ain. Vital signs reviewed and stable. General: non toxic, no distress, appears at stated age Derm: warm, dry Head: atraumatic, normocephalic, symmetric Eyes: EOMI, no lid lag, anicteric sclera Mouth: no lip lesion, mucus membranes moist Cardiovascular: S1S2 reg, no murmur, positive posterior tibial pulse bilateral, Lungs: CTA bilateral, no rhonchi, no rales , no accessory muscle use Abdominal: soft, nontender to palpation, no guarding, no appreciable organomegaly Ext: no gross muscle atrophy, no edema, no contractures Neuro: CN II-XI grossly intact, no focal neuro deficits Psych: Alert, oriented, appropriate affect A total of 35 minutes of time were spent preparing this complex discharge summary . Patient Condition at Discharge: Stable Plan - Discharge Summary Discharge Rx Participant: No New Discharge Prescriptions: New Atorvastatin [Lipitor] 40 mg PO HS #30 tab Multivitamins, Thera [Multivitamin (formulary)] 1 tab PO DAILY #30 tablet Pantoprazole [Protonix] 40 mg PO DAILY #30 tablet. Continue Escitalopram Oxalate [Lexapro] 20 mg PO DAILY Ibuprofen [Motrin] 600 mg PO Q8HR PRN #30 tab PRN Reason: Pain QUEtiapine FUMARATE [SEROquel] 200 mg PO HS Magnesium Oxide 200 mg PO DAILY Ferrous Sulfate [Iron (65 MG Elemental)] 325 mg PO DAILY Discontinued Multivitamin [Men's Multi-Vitamin] 1 tab PO DAILY Discharge Medication List Escitalopram Oxalate [Lexapro] 20 mg PO DAILY 06/26/16 [History] Ibuprofen [Motrin] 600 mg PO Q8HR PRN #30 tab 02/20/19 [Rx] Ferrous Sulfate [Iron (65 MG Elemental)] 325 mg PO DAILY 10/31/19 [History] Magnesium Oxide 200 mg PO DAILY 10/31/19 [History] QUEtiapine FUMARATE [SEROquel] 200 mg PO HS 10/31/19 [History] Atorvastatin [Lipitor] 40 mg PO HS #30 tab 11/02/19 [Rx] Multivitamins, Thera [Multivitamin (formulary)] 1 tab PO DAILY #30 tablet 11/02/19 [Rx] Pantoprazole [Protonix] 40 mg PO DAILY #30 tablet. 11/02/19 [Rx] Follow up Appointment(s)/Referral(s): Elijah Tate MD [STAFF PHYSICIAN] - [facility] - [facility]2 days Patient Instructions/Handouts: Chest Pain (ED), How to Stop Smoking (DC), Cigarette Smoking and Your Health (GEN), Cholesterol and Your Health (GEN), Hyperlipidemia (GEN) Activity/Diet/Wound Care/Special Instructions: Activity: as tolerated Diet: heart healthy Special Instructions: Return with recurrent chest pain or worsening shortness of breath Discharge Disposition: HOME SELF-CARE
[2019-11-03] MEDS ORDERED: ASPIRIN 81 MG PO SCH (09:00)
--- NOTE | 2019-11-04 16:08 | ECHOS ---
Stress Test Results/Findings: Exam Performed: stress echo exercise Exam Date: 11/02/19 Reason for Exam: CP Height: 6 ft 3 in Weight: 102.06 kg Protocol: STRESS ECHO Stage: 2 Duration of Exercise: 5:17 Resting Heart Rate: 65 Resting Blood Pressure: 100/48 Maximum Achieved Heart Rate: 157 Maximum Achieved Blood Pressure: 144/57 85% PMHR: 142 100% PMHR: 167 METS: 7.1 Technologist Comment: Stress Test Results/Findings: Baseline heart rate 65 bpm, Baseline blood pressure 100/48 mmHg The baseline ECG showed sinus rhythm normal [place] right bundle branch block left anterior fascicular block Patient exercised on a Burak protocol for 15 minutes 17 seconds. He is fatigued by that time Peak heart rate 155 beats a minute, normal blood pressure response to exercise There was no definite ECG ms for ischemia Baseline 2-D echo images showed normal limits and systolic function without any segmental wall motion abnormalities At peak exercise there was augmentation of oral LV contractility without development of any wall motion abnormalities @Recovery region global LV systolic function remained normal Impression low average exercise capacity on a Burak protocol without ECG ms ischemia No echo cardio graphic ms ischemia Underlying right bundle branch block left anterior fascicular block MTDD
== END 2019-11-02 15:57 | disposition home or self-care (01) ==
LOC: EC 14:31 → 1SOBS 16:25
PROVIDERS: ADMIT Internal Medicine; ATTEND Internal Medicine
DX: R07.89 Other chest pain (principal); R20.2 Paresthesia of skin; R42 Dizziness and giddiness; R06.02 Shortness of breath; E83.42 Hypomagnesemia; K21.9 Gastro-esophageal reflux disease without esophagitis; E78.5 Hyperlipidemia, unspecified; I10 Essential (primary) hypertension; I45.2 Bifascicular block; F41.9 Anxiety disorder, unspecified; F31.9 Bipolar disorder, unspecified; F20.9 Schizophrenia, unspecified; F17.210 Nicotine dependence, cigarettes, uncomplicated; E66.9 Obesity, unspecified; Z68.28 Body mass index [BMI] 28.0-28.9, adult; Z11.59 Encounter for screening for other viral diseases; Z79.899 Other long term (current) drug therapy; Z88.8 Allergy status to other drugs, medicaments and biological substances; Z87.19 Personal history of other diseases of the digestive system; Z98.890 Other specified postprocedural states; Z72.89 Other problems related to lifestyle; Z83.3 Family history of diabetes mellitus; Z82.5 Family history of asthma and other chronic lower respiratory diseases; Z82.49 Family history of ischemic heart disease and other diseases of the circulatory system; Z80.9 Family history of malignant neoplasm, unspecified
CPT/HCPCS: 93005 ×2; 99285; 36415; 93351; 80061; 80053; 83735; 84484 ×2; 85025; 85610; 85730; 83036; 71046; G0378 ×3; U0003

== ENCOUNTER 2019-11-23 02:12 | Emergency (ER) | payer OTHER ==
[2019-11-23 02:28] VITALS: RESP 18; TEMP 97.9
[2019-11-23 02:38] LABS: Sperm,Urine Rare /hpf; Squamous Epithelial Cell,Urine <1 /hpf (0-4); WBC,Urine <1 /hpf (0-5)
--- NOTE | 2019-11-23 02:39 | ED ---
Back Pain HPI - General Chief Complaint: Back Pain/Injury Stated Complaint: back pain Time Seen by Provider: 11/23/19 02:30 Source: patient, EMS Limitations: no limitations - History of Present Illness Initial Comments: This patient is 54-year-old man who presents with right flank pain. The patient describes it as a moderate severity aching. It is constant. The pain does get worse if he presses on the area or with movement. I states it's better if he is lying down. Patient does not recall any inciting injury. Patient denies any pain into the abdomen or chest. There is no radiation into the legs. He has not had change in urination or bowel movements. No testicular or scrotal pain or swelling. Patient declines pain medication at initial history and physical MD Complaint: back pain -: days(s) Similar Symptoms Previously: No Place: home Radiation: none Severity: moderate Quality: aching Consistency: constant Improves With: immobilization Worsens With: movement, other (The patient) Associated Symptoms: denies other symptoms - Related Data Home Medications Medication Instructions Recorded Confirmed Escitalopram Oxalate [Lexapro] 20 mg PO DAILY 06/26/16 10/31/19 Ferrous Sulfate [Iron (65 MG 325 mg PO DAILY 10/31/19 10/31/19 Elemental)] Magnesium Oxide 200 mg PO DAILY 10/31/19 10/31/19 QUEtiapine FUMARATE [SEROquel] 200 mg PO HS 10/31/19 10/31/19 Previous Rx's Medication Instructions Recorded Ibuprofen [Motrin] 600 mg PO Q8HR PRN #30 tab 02/20/19 Atorvastatin [Lipitor] 40 mg PO HS #30 tab 11/02/19 Multivitamins, Thera [Multivitamin 1 tab PO DAILY #30 tablet 11/02/19 (formulary)] Pantoprazole [Protonix] 40 mg PO DAILY #30 tablet. 11/02/19 Methocarbamol [Robaxin-750] 750 mg PO TID PRN #30 tablet 11/23/19 Thiamine [Vitamin B-1] 100 mg PO DAILY #30 tablet 11/23/19 Allergies Allergy/AdvReac Type Severity Reaction Status Date / Time haloperidol [From Haldol] Allergy Anaphylaxis Verified 10/31/19 16:17 Review of Systems ROS Statement: Those systems with pertinent positive or pertinent negative responses have been documented in the HPI. ROS Other: All systems not noted in ROS Statement are negative. Constitutional: Denies: fever, chills Respiratory: Denies: cough, dyspnea Cardiovascular: Denies: chest pain, palpitations, edema Gastrointestinal: Denies: abdominal pain, vomiting, diarrhea, melena, hematochezia Genitourinary: Denies: dysuria, hematuria, testicular pain, testicular mass Musculoskeletal: Reports: as per HPI, back pain Skin: Denies: rash Neurological: Denies: headache, weakness, numbness Past Medical History Past Medical History: No Reported History, Chest Pain / Angina Additional Past Medical History / Comment(s): hernia, inguinal/umb, dizzyness when laying down or standing too quickly History of Any Multi-Drug Resistant Organisms: None Reported Past Surgical History: Hernia Repair, Orthopedic Surgery Additional Past Surgical History / Comment(s): 05-03-16 robotic assisted lap lt inguinal hernia repair, right foot Past Anesthesia/Blood Transfusion Reactions: No Reported Reaction Past Psychological History: Anxiety, Bipolar, Depression, Schizophrenia Smoking Status: Current every day smoker Past Alcohol Use History: Daily Past Drug Use History: None Reported - Past Family History Mother Family Medical History: Cancer Additional Family Medical History / Comment(s): bronchitis Father Family Medical History: No Reported History General Exam Limitations: no limitations General appearance: alert, in no apparent distress, appears intoxicated Head exam: Present: atraumatic, normocephalic Eye exam: Present: normal appearance. Absent: scleral icterus, conjunctival injection ENT exam: Present: mucous membranes dry Respiratory exam: Present: normal lung sounds bilaterally. Absent: respiratory distress, wheezes, rales, rhonchi, stridor Cardiovascular Exam: Present: regular rate, normal rhythm, normal heart sounds. Absent: systolic murmur, diastolic murmur, rubs, gallop GI/Abdominal exam: Present: soft. Absent: distended, tenderness, guarding, rebound, rigid, mass Extremities exam: Present: normal inspection, normal capillary refill. Absent: pedal edema, calf tenderness Back exam: Present: normal inspection, paraspinal tenderness. Absent: CVA tenderness (R), CVA tenderness (L), vertebral tenderness Neurological exam: Present: alert. Absent: motor sensory deficit Skin exam: Present: warm, dry, intact, normal color. Absent: rash Course Vital Signs 11/23/19 02:25 Temperature 97.9 F Pulse Rate 77 Respiratory 18 Rate Blood Pressure 121/95 O2 Sat by Pulse 100 Oximetry Medical Decision Making - Lab Data Result diagrams: 11/23/19 02:59 11/23/19 02:59 Lab Results 11/23/19 11/23/19 11/23/19 Range/Units 02:20 02:59 02:59 WBC 4.0 (3.8-10.6) k/uL RBC 4.45 (4.30-5.90) m/uL Hgb 11.2 L (13.0-17.5) gm/dL Hct 34.8 L (39.0-53.0) % MCV 78.3 L (80.0-100.0) fL MCH 25.1 (25.0-35.0) pg MCHC 32.1 (31.0-37.0) g/dL RDW 14.1 (11.5-15.5) % Plt Count 118 L (150-450) k/uL Neutrophils % 48 % Lymphocytes % 39 % Monocytes % 6 % Eosinophils % 4 % Basophils % 1 % Neutrophils # 1.9 (1.3-7.7) k/uL Lymphocytes # 1.5 (1.0-4.8) k/uL Monocytes # 0.3 (0-1.0) k/uL Eosinophils # 0.2 (0-0.7) k/uL Basophils # 0.0 (0-0.2) k/uL Hypochromasia Slight Sodium 139 (137-145) mmol/L Potassium 4.2 (3.5-5.1) mmol/L Chloride 105 (98-107) mmol/L Carbon Dioxide 23 (22-30) mmol/L Anion Gap 11 mmol/L BUN 7 L (9-20) mg/dL Creatinine 0.77 (0.66-1.25) mg/dL Est GFR (CKD-EPI)AfAm >90 (>60 ml/min/1.73 sqM) Est GFR (CKD-EPI)NonAf >90 (>60 ml/min/1.73 sqM) Glucose 93 (74-99) mg/dL Calcium 8.8 (8.4-10.2) mg/dL Total Bilirubin 0.5 (0.2-1.3) mg/dL AST 194 H (17-59) U/L ALT 141 H (4-49) U/L Alkaline Phosphatase 95 (38-126) U/L Total Protein 8.2 (6.3-8.2) g/dL Albumin 4.5 (3.5-5.0) g/dL Urine Color Yellow Urine Appearance Clear (Clear) Urine pH 6.0 (5.0-8.0) Ur Specific [place]ascade 1.015 (1.001-1.035) Urine Protein 1+ H (Negative) Urine Glucose (UA) Negative (Negative) Urine Ketones Negative (Negative) Urine Blood Small (Negative) Urine Nitrite Negative (Negative) Urine Bilirubin Negative (Negative) Urine Urobilinogen <2.0 (<2.0) mg/dL Ur Leukocyte Esterase Negative (Negative) Urine WBC <1 (0-5) /hpf Ur Squamous Epith Cells <1 (0-4) /hpf Urine Sperm Rare (None) /hpf Disposition Clinical Impression: Mechanical back pain Disposition: HOME SELF-CARE Condition: Good Instructions (If sedation given, give patient instructions): Acute Low Back Pain (ED), Peripheral Neuropathy (ED) Prescriptions: Methocarbamol [Robaxin-750] 750 mg PO TID PRN #30 tablet PRN Reason: pain Thiamine [Vitamin B-1] 100 mg PO DAILY #30 tablet Is patient prescribed a controlled substance at d/c from ED?: No Referrals: None,Stated [REFERRING] - 1-2 days Mary Schwab MD [REFERRING] - 1-2 days
[2019-11-23 02:50] LABS: Appearance,Urine Clear (Clear); Color,Urine Yellow; Specific Gravity,Urine 1.015 (1.001-1.035)
[2019-11-23 02:51] LABS: Bilirubin,Urine Negative (Negative); Glucose,Urine (UA) Negative (Negative); Ketones,Urine Negative (Negative); Protein,Urine 1+ (Negative)
[2019-11-23 02:52] LABS: Blood,Urine Small (Negative); Leukocyte Esterase,Urine Negative (Negative); Nitrite,Urine Negative (Negative); Urobilinogen,Urine <2.0 mg/dL (<2.0)
[2019-11-23 03:06] LABS: Basophils % (A) 1 %; Eosinophils # (A) 0.2 k/uL (0-0.7); Eosinophils % (A) 4 %; HCT 34.8 % (39.0-53.0); HGB 11.2 gm/dL (13.0-17.5); Hypochromasia Slight; Lymphocytes # (A) 1.5 k/uL (1.0-4.8); Lymphocytes % (A) 39 %; MCH 25.1 pg (25.0-35.0); MCHC 32.1 g/dL (31.0-37.0); MCV 78.3 fL (80.0-100.0); Mean Platelet Volume 7.8; Monocytes # (A) 0.3 k/uL (0-1.0); Monocytes % (A) 6 %; Neutrophils # (A) 1.9 k/uL (1.3-7.7); Neutrophils % (A) 48 %; Platelet Count 118 k/uL (150-450); RBC 4.45 m/uL (4.30-5.90); RDW 14.1 % (11.5-15.5)
[2019-11-23 03:14] LABS: ALT 141 U/L (4-49); AST 194 U/L (17-59); African American GFR (CKD) >90 (>60 ml/min/1.73 sqM); Albumin 4.5 g/dL (3.5-5.0); Alkaline Phosphatase 95 U/L (38-126); Anion Gap 11 mmol/L; Blood Urea Nitrogen 7 mg/dL (9-20); Calcium 8.8 mg/dL (8.4-10.2); Carbon Dioxide 23 mmol/L (22-30); Chloride 105 mmol/L (98-107); Glucose 93 mg/dL (74-99); Non-African American GFR(CKD) >90 (>60 ml/min/1.73 sqM); Potassium 4.2 mmol/L (3.5-5.1); Sodium 139 mmol/L (137-145); Total Bilirubin 0.5 mg/dL (0.2-1.3); Total Protein 8.2 g/dL (6.3-8.2)
[2019-11-23 03:47] VITALS: BP 122/87; PULSE 69
== END 2019-11-23 03:48 | disposition home or self-care (01) ==
LOC: EC 02:12
DX: M54.9 Dorsalgia, unspecified (principal); F41.9 Anxiety disorder, unspecified; F20.9 Schizophrenia, unspecified; F31.9 Bipolar disorder, unspecified; F17.200 Nicotine dependence, unspecified, uncomplicated; Z79.899 Other long term (current) drug therapy; Z88.8 Allergy status to other drugs, medicaments and biological substances
CPT/HCPCS: 36415; 80053; 81001; 85025; 99283

== ENCOUNTER 2019-11-23 05:51 | Emergency (ER) | payer OTHER ==
[2019-11-23 05:57] VITALS: BP 133/86; TEMP 97.8
[2019-11-23] MEDS ORDERED: IPRATROPIUM-ALBUTEROL 3 ML NEB INHALATION STA (06:03)
--- NOTE | 2019-11-23 06:05 | ED ---
General Adult HPI - General Chief complaint: Shortness of Breath Stated complaint: TYSON Time Seen by Provider: 11/23/19 05:56 Source: patient, RN notes reviewed, old records reviewed Mode of arrival: ambulatory Limitations: no limitations - History of Present Illness Initial comments: Patient is an 84-year-old male presents emergency department today for evaluation for cough congestion and shortness of breath. Symptoms present for a few days. He is recently seen in emergency department for back pain. This was not discussed on previous visit. He states that when he left the hospital and was discharged started noticed worsening congestion and decided to return. Patient states that he has no recent fevers or chills. He does have a history of alcoholism. Patient reports that he has no specific chest pain. Patient is a smoker. - Related Data Home Medications Medication Instructions Recorded Confirmed Escitalopram Oxalate [Lexapro] 20 mg PO DAILY 06/26/16 10/31/19 Ferrous Sulfate [Iron (65 MG 325 mg PO DAILY 10/31/19 10/31/19 Elemental)] Magnesium Oxide 200 mg PO DAILY 10/31/19 10/31/19 QUEtiapine FUMARATE [SEROquel] 200 mg PO HS 10/31/19 10/31/19 Previous Rx's Medication Instructions Recorded Ibuprofen [Motrin] 600 mg PO Q8HR PRN #30 tab 02/20/19 Atorvastatin [Lipitor] 40 mg PO HS #30 tab 11/02/19 Multivitamins, Thera [Multivitamin 1 tab PO DAILY #30 tablet 11/02/19 (formulary)] Pantoprazole [Protonix] 40 mg PO DAILY #30 tablet. 11/02/19 Albuterol Inhaler [Ventolin Hfa 2 puff INHALATION RT-QID #1 inhaler 11/23/19 Inhaler] Azithromycin [Zithromax Z-pack] 0 mg PO DIRECTED #6 tab 11/23/19 Methocarbamol [Robaxin-750] 750 mg PO TID PRN #30 tablet 11/23/19 Thiamine [Vitamin B-1] 100 mg PO DAILY #30 tablet 11/23/19 guaiFENesin-DM 600/30MG [Mucinex 1 each PO Q12HR #20 tab.er.12h 11/23/19 Dm] predniSONE [Deltasone] 20 mg PO DIRECTED #12 tab 11/23/19 Allergies Allergy/AdvReac Type Severity Reaction Status Date / Time haloperidol [From Haldol] Allergy Anaphylaxis Verified 10/31/19 16:17 Review of Systems ROS Statement: Those systems with pertinent positive or pertinent negative responses have been documented in the HPI. ROS Other: All systems not noted in ROS Statement are negative. Past Medical History Past Medical History: No Reported History, Chest Pain / Angina Additional Past Medical History / Comment(s): hernia, inguinal/umb, dizzyness when laying down or standing too quickly History of Any Multi-Drug Resistant Organisms: None Reported Past Surgical History: Hernia Repair, Orthopedic Surgery Additional Past Surgical History / Comment(s): 05-03-16 robotic assisted lap lt inguinal hernia repair, right foot Past Anesthesia/Blood Transfusion Reactions: No Reported Reaction Past Psychological History: Anxiety, Bipolar, Depression, Schizophrenia Smoking Status: Current every day smoker Past Alcohol Use History: Daily Past Drug Use History: None Reported - Past Family History Mother Family Medical History: Cancer Additional Family Medical History / Comment(s): bronchitis Father Family Medical History: No Reported History General Exam - General Exam Comments Initial Comments: Alert and oriented 54-year-old male. No significant distress. Limitations: no limitations General appearance: alert, in no apparent distress Head exam: Present: atraumatic, normocephalic, normal inspection Eye exam: Present: normal appearance, PERRL, EOMI. Absent: scleral icterus, conjunctival injection, periorbital swelling ENT exam: Present: normal exam Neck exam: Present: normal inspection. Absent: tenderness, meningismus, lymphadenopathy Respiratory exam: Present: wheezes. Absent: normal lung sounds bilaterally Cardiovascular Exam: Present: regular rate GI/Abdominal exam: Present: soft, normal bowel sounds. Absent: distended, tenderness, guarding, rebound, rigid Extremities exam: Present: normal inspection, full ROM, normal capillary refill. Absent: tenderness, pedal edema, joint swelling, calf tenderness Back exam: Present: normal inspection Neurological exam: Present: alert, oriented X3, CN II-XII intact Psychiatric exam: Present: normal affect Skin exam: Present: warm, dry, intact, normal color. Absent: rash Course Vital Signs 11/23/19 11/23/19 11/23/19 05:54 06:04 06:13 Temperature 97.8 F Pulse Rate 92 88 Respiratory 18 20 Rate Blood Pressure 133/86 O2 Sat by Pulse 99 Oximetry 11/23/19 06:26 Temperature Pulse Rate 92 Respiratory Rate Blood Pressure O2 Sat by Pulse Oximetry - Reevaluation(s) Reevaluation #1: 11/23/19 06:35 Patient stress test from 11/01 was reviewed and shows no electrocardiographic ischemia. There is underlying) Imdur branch block limited to vesicular block. Medical Decision Making - Medical Decision Making Patient's 54-year-old male who presents to emergency department today with cough congestion for the past few days. Does have a history of volvulus was seen earlier today for flank pain and sinus muscle skeletal back pain. Patient had full workup blood work completed at that time. Significant change. On his second visit during my evaluation chest x-ray was read negative for acute process. He does have some minor wheezing bilaterally. Patient was given double DuoNeb treatment and does report improvement. Patient will be discharged at this time with inhalers, advised on smoking cessation. I discussed using decongestant medications as well such as Mucinex. All questions were answered return parameters were discussed. 11/23/19 06:35 EKG performed at 6:30 AM shows normal sinus rhythm, right bundle-branch block. Left anterior fascicular block. By physical or block. Ventricular rate of 80 bpm. Intervals 136 ms. QRS duration is 132 ms. QT QTc is 430/495 ms. - Radiology Data Radiology results: report reviewed Physical exam is reviewed and negative for any acute cardiopulmonary process. Disposition Clinical Impression: Congestion of upper respiratory tract, Smoker, Wheezing Disposition: HOME SELF-CARE Condition: Good Instructions (If sedation given, give patient instructions): Bronchospasm (ED) Additional Instructions: Please use medication as discussed. Please follow up with family doctor if symptoms have not improved over the next two days. Please return to the emergency room if your symptoms increase or worsen or for any other concerns. Prescriptions: predniSONE [Deltasone] 20 mg PO DIRECTED #12 tab guaiFENesin-DM 600/30MG [Mucinex Dm] 1 each PO Q12HR #20 tab.er.12h Albuterol Inhaler [Ventolin Hfa Inhaler] 2 puff INHALATION RT-QID #1 inhaler Azithromycin [Zithromax Z-pack] 0 mg PO DIRECTED #6 tab Is patient prescribed a controlled substance at d/c from ED?: No Referrals: None,Stated [Primary Care Provider] - 1-2 days Time of Disposition: 06:38
[2019-11-23] MEDS ORDERED: THIAMINE 100 MG TAB PO STA (06:08)
[2019-11-23 06:09] VITALS: RESP 20
--- NOTE | 2019-11-23 06:16 | XR ---
EXAMINATION TYPE: XR chest 2V DATE OF EXAM: 11/23/2019 COMPARISON: 10/31/2019 HISTORY: Cough congestion TECHNIQUE: 2 views FINDINGS: Heart and mediastinum are normal. Lungs are clear. Diaphragm is normal. Bony thorax appears normal. IMPRESSION: Normal chest. No change.
[2019-11-23 06:27] VITALS: PULSE 92
[2019-11-23] MEDS ORDERED: ONDANSETRON 4 MG ODT STARTER PACK 2 TAB BTL PO STA (06:47)
[2019-11-23] MEDS ORDERED: FAMOTIDINE 20 MG TAB PO STA (06:47)
== END 2019-11-23 07:00 | disposition home or self-care (01) ==
LOC: EC 05:51
DX: R09.89 Other specified symptoms and signs involving the circulatory and respiratory systems (principal); R06.2 Wheezing; F17.200 Nicotine dependence, unspecified, uncomplicated; R05 Cough; R06.02 Shortness of breath; R10.9 Unspecified abdominal pain; M54.9 Dorsalgia, unspecified; I45.2 Bifascicular block; F41.9 Anxiety disorder, unspecified; F31.9 Bipolar disorder, unspecified; F20.9 Schizophrenia, unspecified; Z79.899 Other long term (current) drug therapy; Z88.8 Allergy status to other drugs, medicaments and biological substances
CPT/HCPCS: 99285 ×2; 99283; 36415; 94640; 93005; 80053; 85025; 81001; 71046; S0119

== ENCOUNTER → 2020-03-15 | Outpatient (CLI) | payer OTHER ==
--- NOTE | 2020-03-15 10:49 | XR ---
EXAMINATION TYPE: XR cervical spine limited DATE OF EXAM: 03/15/2020 CLINICAL HISTORY: pain TECHNIQUE: 3 views of the cervical spine are submitted. COMPARISON: None. FINDINGS: There is satisfactory in alignment without evidence of acute fracture or dislocation. The pre-vertebral soft tissue appears within normal limits.Disc spaces are well preserved. The C1-C2 art iculation is unremarkable on the open mouth view. IMPRESSION: No acute fracture or dislocation is seen in the cervical spine.
== END | disposition home or self-care (01) ==
LOC: RADXRMAIN 09:43
PROVIDERS: ATTEND Internal Medicine
DX: M54.2 Cervicalgia (principal)
CPT/HCPCS: 72040

== ENCOUNTER 2020-11-29 12:32 | Observation (INO) | payer OTHER ==
[2020-11-29] MEDS ORDERED: SODIUM CHLORIDE 0.9% 1,000 ML IV STA (12:50)
--- NOTE | 2020-11-29 12:58 | ED ---
General Adult HPI - General Chief complaint: Syncope Stated complaint: Syncope Time Seen by Provider: 11/29/20 12:40 Source: patient, RN notes reviewed, old records reviewed Mode of arrival: ambulatory Limitations: no limitations - History of Present Illness Initial comments: This is a 55-year-old male who presents emergency Department complaining that he passed out at home. Patient states she was sitting on the couch got up to go into the next room to get some ice and he passed out he was only out for a short period time and when he came to he felt back to his baseline. Patient denied any headache patient denied any numbness weakness. Patient denied any chest pain palpitations or difficulty breathing. Patient any recent fever chills. Patient states she has cold vaccine over a month ago. Patient denies hitting his head or neck. Patient denies any pain other than a little bit of pain in the right elbow from hitting it when he fell. Patient states currently he has no complaints. - Related Data Home Medications Medication Instructions Recorded Confirmed Escitalopram Oxalate [Lexapro] 20 mg PO DAILY 06/26/16 11/29/20 Ferrous Sulfate [Iron (65 MG 325 mg PO DAILY 10/31/19 11/29/20 Elemental)] QUEtiapine FUMARATE [SEROquel] 200 mg PO HS 10/31/19 11/29/20 Atorvastatin [Lipitor] 10 mg PO HS 11/29/20 11/29/20 Cholecalciferol (Vitamin D3) 125 mcg PO DAILY 11/29/20 11/29/20 [Vitamin D3 (5000 Iu)] Omeprazole 20 mg PO DAILY 11/29/20 11/29/20 Paliperidone IM [Invega Sustenna] 234 mg IM Q28D 11/29/20 11/29/20 Previous Rx's Medication Instructions Recorded Multivitamins, Thera [Multivitamin 1 tab PO DAILY #30 tablet 11/02/19 (formulary)] Allergies Allergy/AdvReac Type Severity Reaction Status Date / Time haloperidol [From Haldol] Allergy Anaphylaxis Verified 11/29/20 13:58 Review of Systems ROS Statement: Those systems with pertinent positive or pertinent negative responses have been documented in the HPI. ROS Other: All systems not noted in ROS Statement are negative. Past Medical History Past Medical History: Chest Pain / Angina Additional Past Medical History / Comment(s): hernia, inguinal/umb, dizzyness when laying down or standing too quickly History of Any Multi-Drug Resistant Organisms: None Reported Past Surgical History: Hernia Repair, Orthopedic Surgery Additional Past Surgical History / Comment(s): 05-03-16 robotic assisted lap lt inguinal hernia repair, right foot Past Anesthesia/Blood Transfusion Reactions: No Reported Reaction Past Psychological History: Anxiety, Bipolar, Depression, Schizophrenia Smoking Status: Current every day smoker Past Alcohol Use History: Daily Past Drug Use History: None Reported - Past Family History Mother Family Medical History: Cancer Additional Family Medical History / Comment(s): bronchitis Father Family Medical History: No Reported History General Exam - General Exam Comments Initial Comments: GENERAL: Patient is well-developed and well-nourished. Patient is nontoxic and well- hydrated and is in no acute distress. ENT: Neck is soft and supple. No significant lymphadenopathy is noted. Oropharynx is clear. Moist mucous membranes. Neck has full range of motion without eliciting any pain. EYES: The sclera were anicteric and conjunctiva were pink and moist. Extraocular movements were intact and pupils were equal round and reactive to light. Eyelids were unremarkable. PULMONARY: Unlabored respirations. Good breath sounds bilaterally. No audible rales rhonchi or wheezing was noted. CARDIOVASCULAR: There is a regular rate and rhythm without any murmurs gallops or rubs. ABDOMEN: Soft and nontender with normal bowel sounds. No palpable organomegaly was noted. There is no palpable pulsatile mass. SKIN: Skin is clear with no lesions or rashes and otherwise unremarkable. NEUROLOGIC: Patient is alert and oriented x3. Cranial nerves II through XII are grossly intact. Motor and sensory are also intact. Normal speech, volume and content. Symmetrical smile. MUSCULOSKELETAL: Normal extremities with adequate strength and full range of motion. No lower extremity swelling or edema. No calf tenderness. LYMPHATICS: No significant lymphadenopathy is noted PSYCHIATRIC: Normal psychiatric evaluation. Limitations: no limitations Course Vital Signs 11/29/20 11/29/20 11/29/20 12:36 12:56 12:58 Temperature 99.3 F Pulse Rate 82 Pulse Rate [ 76 75 [employer] ] Respiratory 18 18 18 Rate Blood Pressure 116/76 Blood Pressure 109/79 [Right Arm Sitting] Blood Pressure [Right Arm Standing] Blood Pressure 113/74 [Right Arm Supine] O2 Sat by Pulse 99 99 99 Oximetry 11/29/20 11/29/20 12:59 14:08 Temperature Pulse Rate 71 Pulse Rate [ 80 [employer]elling [employer] Leader ] Respiratory 18 18 Rate Blood Pressure 109/81 Blood Pressure [Right Arm Sitting] Blood Pressure 99/61 [Right Arm Standing] Blood Pressure [Right Arm Supine] O2 Sat by Pulse 98 99 Oximetry Medical Decision Making - Medical Decision Making EKG shows a normal sinus rhythm with a right bundle branch block at a rate of 79 bpm [place] interval is 142 QRS is 128 QT interval 390 QTC is 447. Patient's EKG shows no ST segment elevation. Patient's chest x-ray shows no acute abnormality. Patient magnesium was low I replaced with 2 g of magnesium. Patient's liver enzymes were elevated he admitted to being a daily drinker. - Lab Data Result diagrams: 11/29/20 12:57 11/29/20 12:57 Lab Results 11/29/20 11/29/20 11/29/20 Range/Units 12:57 12:57 12:57 WBC 6.8 (3.8-10.6) k/uL RBC 3.97 L (4.30-5.90) m/uL Hgb 10.1 L (13.0-17.5) gm/dL Hct 31.7 L (39.0-53.0) % MCV 79.9 L (80.0-100.0) fL MCH 25.5 (25.0-35.0) pg MCHC 32.0 (31.0-37.0) g/dL RDW 14.6 (11.5-15.5) % MPV 10.3 PT 10.4 (9.0-12.0) sec INR 1.0 (<1.2) APTT 23.7 (22.0-30.0) sec Sodium 134 L (137-145) mmol/L Potassium 3.7 (3.5-5.1) mmol/L Chloride 103 (98-107) mmol/L Carbon Dioxide 22 (22-30) mmol/L Anion Gap 9 mmol/L BUN 7 L (9-20) mg/dL Creatinine 0.83 (0.66-1.25) mg/dL Est GFR (CKD-EPI)AfAm >90 (>60 ml/min/1.73 sqM) Est GFR (CKD-EPI)NonAf >90 (>60 ml/min/1.73 sqM) Glucose 96 (74-99) mg/dL Calcium 9.1 (8.4-10.2) mg/dL Magnesium 1.2 L (1.6-2.3) mg/dL Total Bilirubin 0.5 (0.2-1.3) mg/dL AST 147 H (17-59) U/L ALT 119 H (4-49) U/L Alkaline Phosphatase 58 (38-126) U/L Troponin I (0.000-0.034) ng/mL Total Protein 7.1 (6.3-8.2) g/dL Albumin 3.9 (3.5-5.0) g/dL 11/29/20 Range/Units 12:57 WBC (3.8-10.6) k/uL RBC (4.30-5.90) m/uL Hgb (13.0-17.5) gm/dL Hct (39.0-53.0) % MCV (80.0-100.0) fL MCH (25.0-35.0) pg MCHC (31.0-37.0) g/dL RDW (11.5-15.5) % MPV PT (9.0-12.0) sec INR (<1.2) APTT (22.0-30.0) sec Sodium (137-145) mmol/L Potassium (3.5-5.1) mmol/L Chloride (98-107) mmol/L Carbon Dioxide (22-30) mmol/L Anion Gap mmol/L BUN (9-20) mg/dL Creatinine (0.66-1.25) mg/dL Est GFR (CKD-EPI)AfAm (>60 ml/min/1.73 sqM) Est GFR (CKD-EPI)NonAf (>60 ml/min/1.73 sqM) Glucose (74-99) mg/dL Calcium (8.4-10.2) mg/dL Magnesium (1.6-2.3) mg/dL Total Bilirubin (0.2-1.3) mg/dL AST (17-59) U/L ALT (4-49) U/L Alkaline Phosphatase (38-126) U/L Troponin I <0.012 (0.000-0.034) ng/mL Total Protein (6.3-8.2) g/dL Albumin (3.5-5.0) g/dL Disposition Clinical Impression: Hypomagnesemia, Syncope and collapse Disposition: ADMITTED IP TO THIS HOSP Referrals: [facility] [Primary Care Provider] - 1-2 days Time of Disposition: 14:17
[2020-11-29 13:09] LABS: Basophils % (A) 1 %; Eosinophils # (A) 0.2 k/uL (0-0.7); Eosinophils % (A) 2 %; HCT 31.7 % (39.0-53.0); HGB 10.1 gm/dL (13.0-17.5); Lymphocytes # (A) 1.4 k/uL (1.0-4.8); Lymphocytes % (A) 20 %; MCH 25.5 pg (25.0-35.0); MCV 79.9 fL (80.0-100.0); Mean Platelet Volume 10.3; Monocytes # (A) 0.5 k/uL (0-1.0); Monocytes % (A) 7 %; Neutrophils # (A) 4.6 k/uL (1.3-7.7); Neutrophils % (A) 68 %; RBC 3.97 m/uL (4.30-5.90); RDW 14.6 % (11.5-15.5); WBC 6.8 k/uL (3.8-10.6)
[2020-11-29 13:14] LABS: Partial Thromboplastin Time 23.7 sec (22.0-30.0); Prothrombin Time 10.4 sec (9.0-12.0)
[2020-11-29 13:16] LABS: ALT 119 U/L (4-49); AST 147 U/L (17-59); African American GFR (CKD) >90 (>60 ml/min/1.73 sqM); Albumin 3.9 g/dL (3.5-5.0); Alkaline Phosphatase 58 U/L (38-126); Anion Gap 9 mmol/L; Blood Urea Nitrogen 7 mg/dL (9-20); Calcium 9.1 mg/dL (8.4-10.2); Carbon Dioxide 22 mmol/L (22-30); Chloride 103 mmol/L (98-107); Glucose 96 mg/dL (74-99); Magnesium 1.2 mg/dL (1.6-2.3); Non-African American GFR(CKD) >90 (>60 ml/min/1.73 sqM); Potassium 3.7 mmol/L (3.5-5.1); Sodium 134 mmol/L (137-145); Total Bilirubin 0.5 mg/dL (0.2-1.3); Total Protein 7.1 g/dL (6.3-8.2)
--- NOTE | 2020-11-29 13:40 | XR ---
EXAMINATION TYPE: XR chest 2V DATE OF EXAM: 11/29/2020 COMPARISON: 11/23/2019 HISTORY: Shortness of breath TECHNIQUE: Frontal and lateral views of the chest are obtained. FINDINGS: Scattered senescent parenchymal changes noted. Hyperinflation compatible with COPD. No evidence for infiltrate. No evidence for atelectasis. Heart size is stable. Mediastinal structures are stable and grossly unremarkable. No evidence for hilar prominence. Degenerative changes dorsal spine. IMPRESSION: 1. No evidence for acute pulmonary disease.
--- NOTE | 2020-11-29 13:42 | XR ---
EXAMINATION TYPE: XR elbow complete RT DATE OF EXAM: 11/29/2020 CLINICAL HISTORY: pain TECHNIQUE: Frontal, lateral and oblique images of the right elbow are obtained. COMPARISON: None. FINDINGS: There is no acute fracture/dislocation evident of the elbow. No abnormal fat pad signs ar e seen. The overlying soft tissue appears unremarkable. IMPRESSION: There is no acute fracture or dislocation of the elbow. ICD 10 NO FRACTURE, INITIAL EVALUATION
[2020-11-29] MEDS: MAGNESIUM SULFATE-D5W PMX 1 GM in DEXTROSE/WATER 1 100ML.BAG IVPB SCH ×2 (14:07→15:14)
[2020-11-29] MEDS ORDERED: ACETAMINOPHEN TAB 325 MG TAB PO STA (14:10)
[2020-11-29 14:18] LABS: Platelet Count 75 k/uL (150-450); Target Cells Present
[2020-11-29] MEDS ORDERED: LORazepam 2 MG/ML INJ IV PRN ×3 (14:23)
[2020-11-29] MEDS ORDERED: THIAMINE 100 MG/ML 2 ML VIAL IM STA (14:23)
[2020-11-29] MEDS: THIAMINE 100 MG TAB PO SCH (15:06)
[2020-11-29] MEDS: SODIUM CHLORIDE 0.9% 1,000 ML IV ONE ×2 (15:06→22:41)
[2020-11-29] MEDS ORDERED: QUEtiapine 200 MG TAB PO SCH (21:00)
[2020-11-29] MEDS ORDERED: PALIPERIDONE IM 234 MG/1.5 ML SYG IM SCH (21:00)
[2020-11-29] MEDS ORDERED: ATORVASTATIN 10 MG TAB PO SCH (21:00)
[2020-11-29] MEDS: NICOTINE 14MG/24HR PATCH TRANSDERM SCH (22:22)
--- NOTE | 2020-11-30 05:48 | P.HPIM ---
History of Present Illness H&P Date: 11/29/20 Chief Complaint: Syncope, electrolyte imbalance, pancytopenia, abnormal liver function test HISTORY OF PRESENT ILLNESS 55-year-old mildly overweight with past medical history of recurrent chest pain and angina with negative stress test and workup recently, history of bipolar disorders depression and schizoaffective disorders who also had chronic history of smoking and drink alcohol and daily basis who presented to the emergency department at [facility] because of syncope at home according to him he was sitting on the couch get up try to walk into the next room when he had sudden drop with syncopal episode not witnessed lasted for few minutes when he regained his consciousness he was completely back to his normal status. Patient denies any headache blurred vision no injury afterward and denies any associated symptom or preceding symptoms at the time. When he was seen in [facility] department surprisingly his hemoglobin was 10.1 platelet count was 75 patient was mildly pancytopenic also had magnesium level of 1.2 with significantly abnormal liver function tests the patient is known to have history of hyperlipidemia is supposed to be on medication for with other risk factor for cardiac including smoking age family history high cholesterol borderline sugar and elevated blood pressure patient testing otherwise including EKG did not show any abnormality. Elbow x-ray showed no acute fracture dislocation of the right elbow. Patient chest x-ray shows no evidence of pulmonary process but mild findings compatible with COPD. Patient will be admitted to the hospital will be seeing cardiology continue satellite project site monitor echocardiogram along with correction of his potassium level and watch for any further symptoms. REVIEW OF SYSTEMS Constitutional: No fever, no chills, no night sweats. No weight change. No weakness, fatigue or lethargy. No daytime sleepiness. Mildly Overweight HEENT: No headache. No blurred vision or double vision, no loss of vision. No loss of Hearing, no ringing in the ears, no dizziness. No nasal drainage or congestion. No epistaxis. No sore throat. Lungs: Mild shortness of breath mild wheezes with no sputum production no chest wall pain. Cardiovascular: Positive syncopal episode no chest pain no lower extremity edema mild palpitation no PND or orthopnea and no recurrent angina this time. Abdominal: No abdominal pain. No nausea, vomiting. No diarrhea. No constipat ion. No bloody or tarry stools.. No loss of appetite. Genitourinary: No dysuria, increased frequency, urgency. No urinary retention. Musculoskeletal: No myalgias. No muscle weakness, no gait dysfunction, no frequent falls. No back pain. No neck pain. Mild right elbow pain with mild bruises. Integumentary: No wounds, no lesions. No rash or pruritus. No unusual bruising. No change in hair or nails. Neurologic: No aphasia. No facial droop. No change in mentation. No head injury. No headache. No paralysis. No paresthesia. Positive syncope. Psychiatric: No depression. No anxiety. No mood swings. Endocrine: No abnormal blood sugars. No weight change. No excessive sweating or thirst. No cold intolerance. SOCIAL HISTORY He smokes half to 1 pack a day for 30 years, drinks alcohol and daily basis anywhere between 3-5 drinks a day for the last 20 years, PICC line any illicit drug use or marijuana, patient is not on any oxygen is not using any updraft t reatment. FAMILY HISTORY His mother had cancer most likely? Lung, father has heart disease. PHYSICAL EXAMINATION Gen: This is mildly overweight does not look in any respiratory distress. HEENT: Head is atraumatic, normocephalic. Pupils equal, round. Sclerae is anicteric. No sign of bruising or injury. NECK: Supple. No JVD. No lymphadenopathy. No thyromegaly. LUNGS: Decreased breath sound bilaterally fine rhonchi has mild expiratory wheezes no chest wall tenderness no sign of costochondritis. HEART: Regular rate and rhythm. No murmur. Mild PVCs with skipped beats. ABDOMEN: Soft. Bowel sounds are present. No masses. No tenderness. EXTREMITIES: No pedal edema. No calf tenderness. Right elbow has mild bruise but full range of motion. NEUROLOGICAL: Patient is awake, alert and oriented x3. Cranial nerves 2 through 12 are grossly intact. ASSESSMENT AND PLAN 1 syncopal episode: Not clear etiology, cannot exclude cardiovascular disease specially with patient's high risk, CK with troponin will be done keep watching patient on heart monitor, keep watching for any orthostatic change at the time will consult cardiology. 2 pancytopenia: Most likely alcohol-related patient had mostly mild anemia and thrombocytopenia white blood cell count still normal. Keep watching for any other reason beside alcohol suppressing the bone marrow causing pancytopenia. 3 mild anemia: Mostly iron deficiency with patient alcoholism and severe gastritis this is could be gastritis or ulcer causing anemia, PPI IV use watch for any change or any Hemoccult patient might need an EGD. 4 hypomagnesemia: With magnesium level I.2, magnesium supplement to be done for now repeat magnesium with potassium tomorrow morning. 5 chronic liver function test abnormality, mostly alcoholic liver, watch for any further change. 6 hyperlipidemia: Has been on Lipitor 10 mg a day. 7 chronic depression: Has been on Seroquel and Lexapro. 8 schizoaffective disorders: Has been on Seroquel and Invega. 9 GI prophylaxis: Patient will be on pantoprazole daily. 10 DVT prophylaxis: Patient is not on any anticoagulation at this point is anemic and had thrombocytopenia watch for any anticoagulation might be causing more risk than benefit. CODE STATUS: Full code. Admit patient to the observation unit for 1-2 night stay. Patient will be admitted to the hospital for a minimum of 2 night stay. Past Medical History Past Medical History: Chest Pain / Angina Additional Past Medical History / Comment(s): hernia, inguinal/umb, dizzyness when laying down or standing too quickly History of Any Multi-Drug Resistant Organisms: None Reported Past Surgical History: Hernia Repair, Orthopedic Surgery Additional Past Surgical History / Comment(s): 05-03-16 robotic assisted lap lt inguinal hernia repair, right foot Past Anesthesia/Blood Transfusion Reactions: No Reported Reaction Past Psychological History: Anxiety, Bipolar, Depression, Schizophrenia Additional Psychological History / Comment(s): bipolar/depression listed on previous listed, when asked if he had bipolar depression he statee" i have anxiety and schizophrenia" Smoking Status: Current every day smoker Past Alcohol Use History: Daily Additional Past Alcohol Use History / Comment(s): started smoking at age 20 1/2 ppd. Past Drug Use History: None Reported Additional Drug Use History / Comment(s): many years ago - Past Family History Mother Family Medical History: Cancer Additional Family Medical History / Comment(s): bronchitis Father Family Medical History: No Reported History Medications and Allergies Home Medications Medication Instructions Recorded Confirmed Type Escitalopram Oxalate [Lexapro] 20 mg PO DAILY 06/26/16 11/29/20 History Ferrous Sulfate [Iron (65 MG 325 mg PO DAILY 10/31/19 11/29/20 History Elemental)] QUEtiapine FUMARATE [SEROquel] 200 mg PO HS 10/31/19 11/29/20 History Multivitamins, Thera [Multivitamin 1 tab PO DAILY #30 tablet 11/02/19 11/29/20 Rx (formulary)] Atorvastatin [Lipitor] 10 mg PO HS 11/29/20 11/29/20 History Cholecalciferol (Vitamin D3) 125 mcg PO DAILY 11/29/20 11/29/20 History [Vitamin D3 (5000 Iu)] Omeprazole 20 mg PO DAILY 11/29/20 11/29/20 History Paliperidone IM [Invega Sustenna] 234 mg IM Q28D 11/29/20 11/29/20 History Allergies Allergy/AdvReac Type Severity Reaction Status Date / Time haloperidol [From Haldol] Allergy Anaphylaxis Verified 11/29/20 13:58 Physical Exam Vitals: Vital Signs Temp Pulse Pulse Resp BP BP BP 11/29/20 18:35 99.0 F 72 18 11/29/20 17:49 76 16 123/87 11/29/20 14:08 71 18 109/81 11/29/20 12:59 80 18 99/61 11/29/20 12:58 75 18 109/79 11/29/20 12:56 76 18 11/29/20 12:36 99.3 F 82 18 116/76 BP Pulse Ox 11/29/20 18:35 127/77 99 11/29/20 17:49 98 11/29/20 14:08 99 11/29/20 12:59 98 11/29/20 12:58 99 11/29/20 12:56 113/74 99 11/29/20 12:36 99 Intake and Output 11/29/20 11/29/20 11/29/20 06:59 14:59 22:59 Other: Weight 102.376 kg 102.376 kg Results CBC & Chem 7: 11/29/20 12:57 11/29/20 12:57 Labs: Abnormal Lab Results - Last 24 Hours (Table) 11/29/20 11/29/20 Range/Units 12:57 12:57 RBC 3.97 L (4.30-5.90) m/uL Hgb 10.1 L (13.0-17.5) gm/dL Hct 31.7 L (39.0-53.0) % MCV 79.9 L (80.0-100.0) fL Plt Count 75 L (150-450) k/uL Sodium 134 L (137-145) mmol/L BUN 7 L (9-20) mg/dL Magnesium 1.2 L (1.6-2.3) mg/dL AST 147 H (17-59) U/L ALT 119 H (4-49) U/L Thrombosis Risk Factor Assmnt - Choose All That Apply Each Factor Represents 1 point: Age 41-60 years, Obesity (BMI >25) Thrombosis Risk Factor Assessment Total Risk Factor Score: 2 Thrombosis Risk Factor Assessment Level: Low Risk
[2020-11-30 06:53] LABS: HCT 32.6 % (39.0-53.0); HGB 10.6 gm/dL (13.0-17.5); MCH 26.2 pg (25.0-35.0); MCHC 32.5 g/dL (31.0-37.0); MCV 80.7 fL (80.0-100.0); Mean Platelet Volume 9.9; Platelet Count 83 k/uL (150-450); RBC 4.04 m/uL (4.30-5.90); RDW 14.6 % (11.5-15.5); WBC 5.3 k/uL (3.8-10.6)
[2020-11-30 07:07] LABS: ALT 111 U/L (4-49); AST 114 U/L (17-59); African American GFR (CKD) >90 (>60 ml/min/1.73 sqM); Albumin 3.8 g/dL (3.5-5.0); Albumin/Globulin Ratio 1.1; Alkaline Phosphatase 60 U/L (38-126); Anion Gap 7 mmol/L; Blood Urea Nitrogen 5 mg/dL (9-20); Calcium 9.4 mg/dL (8.4-10.2); Carbon Dioxide 26 mmol/L (22-30); Chloride 106 mmol/L (98-107); Globulin 3.4 g/dL; Glucose 103 mg/dL (74-99); Magnesium 1.4 mg/dL (1.6-2.3); Non-African American GFR(CKD) >90 (>60 ml/min/1.73 sqM); Potassium 3.7 mmol/L (3.5-5.1); Sodium 139 mmol/L (137-145); Total Bilirubin 0.6 mg/dL (0.2-1.3); Total Protein 7.2 g/dL (6.3-8.2)
[2020-11-30] MEDS ORDERED: PANTOPRAZOLE 40 MG TABLET PO SCH ×2 (07:30→09:00)
[2020-11-30] MEDS: THIAMINE 100 MG TAB PO SCH (07:56)
[2020-11-30] MEDS ORDERED: Magnesium Replacement Protocol 1 EACH MISC MISCELLANE PRN (08:22)
[2020-11-30] MEDS: MAGNESIUM SULFATE-D5W PMX 1 GM in DEXTROSE/WATER 1 100ML.BAG IVPB SCH ×3 (08:49→11:10)
[2020-11-30] MEDS: NICOTINE 14MG/24HR PATCH TRANSDERM SCH (08:50)
[2020-11-30] MEDS ORDERED: FERROUS SULFATE 325 MG TAB PO SCH (09:00)
[2020-11-30] MEDS ORDERED: MULTIVITAMINS, THERA 1 EACH TAB PO SCH (09:00)
[2020-11-30] MEDS ORDERED: CHOLECALCIFEROL 25 MCG (1000 IU) TABLET PO SCH (09:00)
[2020-11-30] MEDS ORDERED: ESCITALOPRAM 20 MG TAB PO SCH (09:00)
[2020-11-30] MEDS ORDERED: MECLIZINE 25 MG TAB PO PRN (10:15)
--- NOTE | 2020-11-30 11:39 | CT ---
EXAMINATION TYPE: CT brain wo con DATE OF EXAM: 11/30/2020 COMPARISON: None INDICATION: Syncope DLP: 1856 mGycm, Automated exposure control for dose reduction was used. CONTRAST: None CT of the brain is performed utilizing 3 mm thick sections through the posterior fossa and 3 mm thick sections through the remaining calvarium. Study is performed within 24 hours of arrival to the hosp [facility]. No abnormal hyperdensity is present to suggest an acute intracranial hemorrhage. No mass lesion is evident. No acute infarcts are evident. Ventricles and sulci are appropriate for the patient age. Paranasal sinuses and mastoid air cells within the [id number] are clear. IMPRESSIONS: 1. No acute intracranial process.
--- NOTE | 2020-11-30 13:11 | P.CRDCN ---
History of Present Illness History of present illness: HISTORY OF PRESENTING ILLNESS This is a pleasant 55-year-old -[place] male with no significant cardiac history. He doesn't history of schizophrenia, alcohol abuse. She did see Dr. Deepika cooper in the office in 2017. We have been asked to see in consultation for syncope. Patient states that he was at home, he got up and walked to the kitchen to get some ice. All of a sudden he state that he "felt something through my body". Apparently had a syncopal episode. He states he did have 2 b eers. He normally drinks beer every day, when asked how much he states "a lot". He thinks that he was on the floor for only 2 seconds, his was there to assist. He states he just woke up, regained consciousness, and was back to normal. He denies chest pain, shortness of breath, lightheadedness, dizziness. He states any loss of bowel or bladder. He denies any seizure activity. He denies any history of coronary disease, NV, stroke, hypertension, diabetes. DIAGNOSTICS EKG reveals sinus rhythm, heart rate 79, right bundle-branch block, T wave inversions in leads III, and AVF. Similar findings from prior EKGs 11/2019 Telemetry tracings indicate sinus rhythm, heart rate 60 to 70s, and episode of SVT with a heart rate 144 this morning, which resolve on its own. Chest xray no acute cardiopulmonary process. Laboratory reviewed, troponin negative 2, sodium 139, potassium 3.7, BUN 5, se rum creatinine 0.75, magnesium 1.4, COVID-19 negative, WBC 5.3, hemoglobin 10.6, platelets 83 Current cardiac medications include atorvastatin 10mg nightly REVIEW OF SYSTEMS At the time of my exam: CONSTITUTIONAL: +Syncope Denies fever or chills. CARDIOVASCULAR: Denies chest pain, shortness of breath, orthopnea, PND or palpitations. RESPIRATORY: Denies cough. GASTROINTESTINAL: Denies abdominal pain, diarrhea, constipation, nausea or vomiting. MUSCULOSKELETAL: Denies myalgias. NEUROLOGIC: Denies numbness, tingling, headacbe or weakness. ENDOCRINE: Denies fatigue, weight change, polydipsia or polyurina. GENITOURINARY: Denies burning, hematuria or urgency with micturation. HEMATOLOGIC: Denies history of anemia or bleeding. PHYSICAL EXAMINATION Blood pressure 144/83 heart rate 70s afebrile and maintaining oxygen saturation on 98%. CONSTITUTIONAL: No apparent distress. HEENT: Head is normocephalic. Pupils are equal, round. Sclerae anicteric. Mucous membranes of the mouth are moist. No JVD. No carotid bruit. CHEST EXAMINATION: Lungs are clear to auscultation. No chest wall tenderness is noted on palpation or with deep breathing. HEART EXAMINATION: Regular rate and rhythm. S1, S2 heard. No murmurs, gallops or rub. ABDOMEN: Soft, nontender. Positive bowel sounds. EXTREMITIES: 2+ peripheral pulses, no lower extremity edema and no calf tenderness. NEUROLOGIC EXAMINATION: Patient is awake, alert and oriented x3. ASSESSMENT Syncopal episode, unclear etiology, likely related to patient's alcohol use. Orthostatics negative yesterday. Will rule out cardiovascular cause. Elevated liver enzymes Alcohol abuse History of Schizophrenia PLAN We will obtain 2D echocardiogram Continue cardiac telemetry Will monitor orthostatics and blood pressure We will place an event monitor before discharge Patient to follow up with Dr. currie in the office when stable for discharge Further recommendations pending clinical course Nurse Practitioner note has been reviewed, I agree with a documented findings and plan of care. Patient was seen and examined. Past Medical History Past Medical History: Chest Pain / Angina Additional Past Medical History / Comment(s): hernia, inguinal/umb, dizzyness when laying down or standing too quickly History of Any Multi-Drug Resistant Organisms: None Reported Past Surgical History: Hernia Repair, Orthopedic Surgery Additional Past Surgical History / Comment(s): 05-03-16 robotic assisted lap lt inguinal hernia repair, right foot Past Anesthesia/Blood Transfusion Reactions: No Reported Reaction Past Psychological History: Anxiety, Bipolar, Depression, Schizophrenia Additional Psychological History / Comment(s): bipolar/depression listed on previous listed, when asked if he had bipolar depression he statee" i have anxiety and schizophrenia" Smoking Status: Current every day smoker Past Alcohol Use History: Daily Additional Past Alcohol Use History / Comment(s): started smoking at age 20 1/2 ppd. Past Drug Use History: None Reported Additional Drug Use History / Comment(s): many years ago - Past Family History Mother Family Medical History: Cancer Additional Family Medical History / Comment(s): bronchitis Father Family Medical History: No Reported History Medications and Allergies Home Medications Medication Instructions Recorded Confirmed Type Escitalopram Oxalate [Lexapro] 20 mg PO DAILY 06/26/16 11/29/20 History Ferrous Sulfate [Iron (65 MG 325 mg PO DAILY 10/31/19 11/29/20 History Elemental)] QUEtiapine FUMARATE [SEROquel] 200 mg PO HS 10/31/19 11/29/20 History Multivitamins, Thera [Multivitamin 1 tab PO DAILY #30 tablet 11/02/19 11/29/20 Rx (formulary)] Atorvastatin [Lipitor] 10 mg PO HS 11/29/20 11/29/20 History Cholecalciferol (Vitamin D3) 125 mcg PO DAILY 11/29/20 11/29/20 History [Vitamin D3 (5000 Iu)] Omeprazole 20 mg PO DAILY 11/29/20 11/29/20 History Paliperidone IM [Invega Sustenna] 234 mg IM Q28D 11/29/20 11/29/20 History Allergies Allergy/AdvReac Type Severity Reaction Status Date / Time haloperidol [From Haldol] Allergy Anaphylaxis Verified 11/29/20 13:58 Physical Exam Vitals: Vital Signs Temp Pulse Pulse Pulse Pulse Pulse Resp 11/30/20 06:48 98.2 F 66 16 11/30/20 02:10 15 11/30/20 02:00 98.5 F 72 17 11/29/20 20:00 98.8 F 90 95 84 18 11/29/20 18:35 99.0 F 72 18 11/29/20 17:49 76 16 11/29/20 14:08 71 18 11/29/20 12:59 80 18 11/29/20 12:58 75 18 11/29/20 12:56 76 18 11/29/20 12:36 99.3 F 82 18 BP BP BP BP Pulse Ox 11/30/20 06:48 144/83 98 11/30/20 02:10 11/30/20 02:00 128/76 95 11/29/20 20:00 148/91 139/82 133/79 98 11/29/20 18:35 127/77 99 11/29/20 17:49 123/87 98 11/29/20 14:08 109/81 99 11/29/20 12:59 99/61 98 11/29/20 12:58 109/79 99 11/29/20 12:56 113/74 99 11/29/20 12:36 116/76 99 Intake and Output 11/29/20 11/30/20 11/30/20 22:59 06:59 14:59 Intake Total 700 600 Balance 700 600 Intake: Intake, IV Titration 700 600 Amount Magnesium Sulfate-D5w Pmx 100 1 gm In Dextrose/Water 1 100ml.bag @ 100 mls/hr IVPB Q1H [facility] Rx#: [id number] Sodium Chloride 0.9% 1, 600 600 000 ml @ 75 mls/hr IV . [id number] ONE Rx#:[id number] Other: # Voids 1 1 Weight 102.376 kg Results 11/30/20 06:29 11/30/20 06:29 Cardiac Enzymes 11/29/20 11/29/20 11/30/20 Range/Units 12:57 12:57 06:29 AST 147 H 114 H (17-59) U/L Troponin I <0.012 (0.000-0.034) ng/mL Coagulation 11/29/20 Range/Units 12:57 PT 10.4 (9.0-12.0) sec APTT 23.7 (22.0-30.0) sec CBC 11/29/20 11/30/20 Range/Units 12:57 06:29 WBC 6.8 5.3 (3.8-10.6) k/uL RBC 3.97 L 4.04 L (4.30-5.90) m/uL Hgb 10.1 L 10.6 L (13.0-17.5) gm/dL Hct 31.7 L 32.6 L (39.0-53.0) % Plt Count 75 L 83 L (150-450) k/uL Comprehensive Metabolic Panel 11/29/20 11/30/20 Range/Units 12:57 06:29 Sodium 134 L 139 (137-145) mmol/L Potassium 3.7 3.7 (3.5-5.1) mmol/L Chloride 103 106 (98-107) mmol/L Carbon Dioxide 22 26 (22-30) mmol/L BUN 7 L 5 L (9-20) mg/dL Creatinine 0.83 0.75 (0.66-1.25) mg/dL Glucose 96 103 H (74-99) mg/dL Calcium 9.1 9.4 (8.4-10.2) mg/dL AST 147 H 114 H (17-59) U/L ALT 119 H 111 H (4-49) U/L Alkaline Phosphatase 58 60 (38-126) U/L Total Protein 7.1 7.2 (6.3-8.2) g/dL Albumin 3.9 3.8 (3.5-5.0) g/dL Current Medications Generic Name Dose Route Start Last Admin Trade Name Fre PRN Reason Stop Dose Admin Atorvastatin Calcium 10 mg 11/29/20 21:00 11/29/20 22:22 Atorvastatin 10 Mg Tab PO 10 mg HS JUSTIN Administration Cholecalciferol 125 mcg 11/30/20 09:00 11/30/20 08:50 Cholecalciferol 25 Mcg (1000 Iu) Tablet PO 125 mcg DAILY JUSTIN Administration Escitalopram Oxalate 20 mg 11/30/20 09:00 11/30/20 08:50 Escitalopram 20 Mg Tab PO 20 mg DAILY JUST[facility] Administration Ferrous Sulfate 325 mg 11/30/20 09:00 11/30/20 08:51 Ferrous Sulfate 325 Mg Tab PO 325 mg DAILY JUSTIN Administration Magnesium Sulfate/Dextrose 1 100 mls @ 100 mls/hr 11/30/20 08:30 11/30/20 08:49 gm/ IV Solution IVPB 11/30/20 11:29 100 mls/hr Q1H [facility] Administration Lorazepam 1 mg 11/29/20 14:23 Lorazepam 2 Mg/Ml Inj IV Q2HR PRN CIWA 8 or 9 Lorazepam 1 mg 11/29/20 14:23 Lorazepam 2 Mg/Ml Inj IV Q1HR PRN CIWA 10 to 15 Lorazepam 2 mg 11/29/20 14:23 Lorazepam 2 Mg/Ml Inj IV 12/01/20 14:23 Q10M PRN CIWA 16 or higher Miscellaneous Information 1 each 11/30/20 08:22 Magnesium Replacement Protocol 1 Each Misc MISCELLANE DAILY PRN Per Protocol Protocol Multivitamins 1 each 11/30/20 09:00 11/30/20 08:50 Multivitamins, Thera 1 Each Tab PO 1 each DAILY JUSTIN Administration Nicotine 1 patch 11/29/20 21:00 11/30/20 08:50 Nicotine 14mg/24hr Patch TRANSDERM 1 patch DAILY JUSTIN Administration Paliperidone Palmitate 234 mg 11/29/20 21:00 11/29/20 23:18 Paliperidone Im 234 Mg/1.5 Ml Syg IM 234 mg Q28D [facility] Administration Pantoprazole Sodium 40 mg 11/30/20 07:30 11/30/20 07:56 Pantoprazole 40 Mg Tablet PO 40 mg [id number] JUSTIN Administration Quetiapine Fumarate 200 mg 11/29/20 21:00 11/29/20 22:41 Quetiapine 200 Mg Tab PO 200 mg HS JUSTIN Administration Thiamine HCl 100 mg 11/29/20 17:30 11/30/20 07:56 Thiamine 100 Mg Tab PO 100 mg BID-W/MEALS JUSTIN Administration Intake and Output 11/29/20 11/30/20 11/30/20 22:59 06:59 14:59 Intake Total 700 600 Balance 700 600 Intake: Intake, IV Titration 700 600 Amount Magnesium Sulfate-D5w Pmx 100 1 gm In Dextrose/Water 1 100ml.bag @ 100 mls/hr IVPB Q1H [facility] Rx#: [id number] Sodium Chloride 0.9% 1, 600 600 000 ml @ 75 mls/hr IV . [id number] ONE Rx#:[id number] Other: # Voids 1 1 Weight 102.376 kg 11/30/20 06:29 11/30/20 06:29
[2020-11-30 14:07] VITALS: BP 139/93; PULSE 77; RESP 18; TEMP 98.9
--- NOTE | 2020-11-30 14:23 | P.DS ---
Providers Date of admission: 11/29/20 14:50 Expected date of discharge: 11/30/20 Attending physician: Asa Alcocer Consults: 11/29/20 14:18 Consult Physician Urgent Consulting Provider: [facility] Consult Reason/Comments: Syncope Do you want consulting provider notified?: Yes Primary care physician: [facility] Course: HISTORY OF PRESENT ILLNESS 55-year-old mildly overweight with past medical history of recurrent chest pain and angina with negative stress test and workup recently, history of bipolar disorders depression and schizoaffective disorders who also had chronic history of smoking and drink alcohol and daily basis who presented to the emergency department at [facility] because of syncope at home according to him he was sitting on the couch get up try to walk into the next room when he had sudden drop with syncopal episode not witnessed lasted for few minutes when he regained his consciousness he was completely back to his normal status. Patient denies any headache blurred vision no injury afterward and denies any associated symptom or preceding symptoms at the time. When he was seen in demurs department surprisingly his hemoglobin was 10.1 platelet count was 75 patient was mildly pancytopenic also had magnesium level of 1.2 with significantly abnormal liver function tests the patient is known to have history of hyperlipidemia is supposed to be on medication for with other risk factor for cardiac including smoking age family history high cholesterol borderline sugar and elevated blood pressure patient testing otherwise including EKG did not show any abnormality. Elbow x-ray showed no acute fracture dislocation of the right elbow. Patient chest x-ray shows no evidence of pulmonary process but mild findings compatible with COPD. Patient will be admitted to the hospital will be seeing cardiology continue cardiac nurse specialist echocardiogram along with correction of his potassium level and watch for any further symptoms. 11/30: Repeat blood work today reveals WBC 5.3, hemoglobin 10.6 and platelet count of 83. Electrolytes are normal. BUN 5 and creatinine 0.75. Magnesium 1. form will be replaced. Blood sugar 103. Calcium 9.4. Total bilirubin 0.6, AST 114, ALT 111. Alkaline phosphatase 60. Orthostatic vital were negative. He has been afebrile, heart rate 66, blood pressure 144/83, pulse ox 98% on room air. desk monitor has been a sinus rhythm. Patient has been seen by cardiology with recommendations Echocardiogram reveals EF of 50-55%, moderate concentric left ventricular hypertrophy, mild pulmonary hypertension with RVSP of 40.47 mmHg, mild mitral regurgitation, aortic root is dilated at 3.[address] brain reveals no acute intracranial process. Carotid ultrasound revealed no evidence of hemodynamically significant stenosis of the internal carotid arteries bilaterally. Discussed with patient the need to stop drinking alcohol and he verbalizes understanding. Patient has been cleared by cardiology for discharge. Patient will be discharged home today in stable condition. ASSESSMENT AND PLAN 1 syncopal episode 2 pancytopenia: Most likely alcohol-related with mild anemia and thrombocytopenia 3 mild anemia of chronic disease secondary to alcohol abuse in possible component of gastritis 4 hypomagnesemia status post replacement 5 chronic liver function test abnormality, mostly alcoholic liver 6 hyperlipidemia 7 recurrent depression 8 schizoaffective disorders Impression and plan of care have been directed as dictated by the signing physician. Talisha Gerber nurse practitioner acting as scribe for signing physician. Patient Condition at Discharge: Good Plan - Discharge Summary Discharge Rx Participant: No New Discharge Prescriptions: No Action Escitalopram Oxalate [Lexapro] 20 mg PO DAILY QUEtiapine FUMARATE [SEROquel] 200 mg PO HS Ferrous Sulfate [Iron (65 MG Elemental)] 325 mg PO DAILY Multivitamins, Thera [Multivitamin (formulary)] 1 tab PO DAILY #30 tablet Atorvastatin [Lipitor] 10 mg PO HS Cholecalciferol (Vitamin D3) [Vitamin D3 (5000 Iu)] 125 mcg PO DAILY Paliperidone IM [Invega Sustenna] 234 mg IM Q28D Omeprazole 20 mg PO DAILY Discharge Medication List Escitalopram Oxalate [Lexapro] 20 mg PO DAILY 06/26/16 [History] Ferrous Sulfate [Iron (65 MG Elemental)] 325 mg PO DAILY 10/31/19 [History] QUEtiapine FUMARATE [SEROquel] 200 mg PO HS 10/31/19 [History] Multivitamins, Thera [Multivitamin (formulary)] 1 tab PO DAILY #30 tablet 11/02/19 [Rx] Atorvastatin [Lipitor] 10 mg PO HS 11/29/20 [History] Cholecalciferol (Vitamin D3) [Vitamin D3 (5000 Iu)] 125 mcg PO DAILY 11/29/20 [History] Omeprazole 20 mg PO DAILY 11/29/20 [History] Paliperidone IM [Invega Sustenna] 234 mg IM Q28D 11/29/20 [History] Follow up Appointment(s)/Referral(s): [facility] [Primary Care Provider] - 3 Days Hong Luna MD [STAFF PHYSICIAN] - 6 Weeks (Follow up after 30 day event monitor results are in. Cardoilogy Office will call with appointment and time. ) Discharge Disposition: HOME SELF-CARE
--- NOTE | 2020-11-30 17:06 | US ---
EXAMINATION TYPE: US carotid duplex BILAT DATE OF EXAM: 11/30/2020 COMPARISON: NONE CLINICAL HISTORY: syncope. Smoker x 30 years; one syncopal episode EXAM MEASUREMENTS: RIGHT: Peak Systolic Velocity (PSV) cm/sec ----- Right CCA: 74.2 ----- Right ICA: 72.9 ----- Right ECA: 60.6 ICA/CCA ratio: 1.0 RIGHT: End Diastole cm/sec ----- Right CCA: 24.7 ----- Right ICA: 23.3 ----- Right ECA: 10.8 LEFT: Peak Systolic Velocity (PSV) cm/sec ----- Left CCA: 48.8 ----- Left ICA: 63.6 ----- Left ECA: 67.0 ICA/CCA ratio: 1.3 LEFT: End Diastole cm/sec ----- Left CCA: 13.9 ----- Left ICA: 24.3 ----- Left ECA: 13.1 VERTEBRALS (direction of flow): Right Vertebral: Antegrade Left Vertebral: Antegrade; small for size compared to right vertebral artery. Rhythm: Normal Mild intimal wall changes are noted bilateral carotid bifurcation, and PSV is wnl bilaterally. IMPRESSION: 1. No evidence of hemodynamically significant stenosis of the internal carotid arteries bilaterally. 2. Mild intimal wall changes of the bilateral common carotid artery bifurcations. Minimal atheroscler otic plaque at the left common carotid artery bifurcation. 3. Right vertebral artery is dominant. Criteria for Assigning % of Stenosis / Diameter reduction (Estimation based on the indirect measurements of the internal carotid artery velocities (ICA PSV). 1. Normal (no stenosis)=ICA PSV < 125 cm/s: ratio < 2.0: ICA EDV<40 cm/s. 2. Less than 50% stenosis=ICA PSV < 125 cm/s: ratio < 2.0: ICA EDV<40 cm/s. 3. 50 to 69% stenosis=ICA PSV of 125 to 230 cm/s: ration 2.0 ? 4.0: ICA EDV 40-100 cm/s. 4. Greater than 70% stenosis to near occlusion= ICA PSV > 230 cm/s: ratio > 4.0: ICA EDV > 100 cm/s. 5. Near occlusion= ICA PSV velocities may be low or undetectable: variable ratio and ICA EDV. 6. Total occlusion=unable to detect flow.
--- NOTE | 2020-11-30 17:08 | ECHOF ---
Referral Reason:LV function MEASUREMENTS -------- HEIGHT: 190.5 cm WEIGHT: 102.1 kg BP: 144/83 RVIDd: 3.6 cm (< 3.3) IVSd: 1.4 cm (0.6 - 1.1) LVIDd: 4.7 cm (3.9 - 5.3) LVPWd: 1.4 cm (0.6 - 1.1) IVSs: 1.7 cm LVIDs: 3.5 cm LVPWs: 2.0 cm LA Diam: 3.6 cm (2.7 - 3.8) LAESV Index (A-L): 27.43 ml/m Ao Diam: 3.9 cm (2.0 - 3.7) AV Cusp: 2.5 cm (1.5 - 2.6) MV EXCURSION: 17.896 mm (> 18.000) MV EF SLOPE: 125 mm/s (70 - 150) EPSS: 0.8 cm MV E Sha: 0.65 m/s MV DecT: 254 ms MV A Sha: 0.64 m/s MV E/A Ratio: 1.02 RAP: 15.00 mmHg RVSP: 40.47 mmHg FINDINGS -------- Sinus rhythm. Suboptimal image quality - poor subcostal views. The left ventricular size is normal. There is moderate concentric left ventricular hypertrophy. O verall left ventricular systolic function is low-normal with, an EF between 50 - 55 %. The right ventricle is mildly enlarged. Normal LA size by volume 22+/-6 ml/m2. The right atrium is normal in size. Interatrial and interventricular septum intact. The aortic valve is trileaflet, and appears structurally normal. No aortic stenosis or regurgitation. Mild mitral regurgitation is present. Mild tricuspid regurgitation present. There is mild pulmonary hypertension. The right ventricular systolic pressure, as measured by Doppler, is 40.47mmHg. Trace/mild (physiologic) pulmonic regurgitation. The aortic root is dilated measuring 3.9cm. The inferior vena cava is dilated with poor inspiratory collapse which is consistent with estimated r ight atrial pressure of 15 mmHg. There is no pericardial effusion. CONCLUSIONS -------- 1. The left ventricular size is normal. 2. There is moderate concentric left ventricular hypertrophy. 3. Overall left ventricular systolic function is low-normal with, an EF between 50 - 55 %. 4. The right ventricle is mildly enlarged. 5. Normal LA size by volume 22+/-6 ml/m2. 6. The aortic valve is trileaflet, and appears structurally normal. No aortic stenosis or regurgitati on. 7. Mild mitral regurgitation is present. 8. Mild tricuspid regurgitation present. 9. There is mild pulmonary hypertension. 10. The right ventricular systolic pressure, as measured by Doppler, is 40.47mmHg. 11. Trace/mild (physiologic) pulmonic regurgitation. 12. The aortic root is dilated measuring 3.9cm. 13. The inferior vena cava is dilated with poor inspiratory collapse which is consistent with estimat ed right atrial pressure of 15 mmHg. 14. There is no pericardial effusion. MANAGER PAYMENT: Abigail Adame RDCS
== END 2020-11-30 18:18 | disposition home or self-care (01) ==
LOC: EC 12:32 → 6NMEDSUR 14:50
PROVIDERS: ADMIT Internal Medicine Geriatric Medicine; ATTEND Internal Medicine Geriatric Medicine
DX: R55 Syncope and collapse (principal); D61.818 Other pancytopenia; D63.8 Anemia in other chronic diseases classified elsewhere; F10.20 Alcohol dependence, uncomplicated; Z20.822 Contact with and (suspected) exposure to COVID-19; E78.5 Hyperlipidemia, unspecified; R94.5 Abnormal results of liver function studies; I45.10 Unspecified right bundle-branch block; F20.9 Schizophrenia, unspecified; F31.9 Bipolar disorder, unspecified; F41.9 Anxiety disorder, unspecified; K40.90 Unilateral inguinal hernia, without obstruction or gangrene, not specified as recurrent; F17.210 Nicotine dependence, cigarettes, uncomplicated; I27.20 Pulmonary hypertension, unspecified; E83.42 Hypomagnesemia; Z88.8 Allergy status to other drugs, medicaments and biological substances; Z79.899 Other long term (current) drug therapy; Z82.5 Family history of asthma and other chronic lower respiratory diseases
CPT/HCPCS: 96361 ×3; 96366 ×2; 96372; 96365; 99285; 36415; 94760; 93005; 93306; 93270; 80053 ×2; 83735 ×2; 84484 ×2; 85025; 85027; 85610; 85730; 87635; 73080; 71046; 93880; 70450; G0378 ×2; S4990 ×2; J3411; J3475 ×2; J2426

== ENCOUNTER 2021-02-25 12:11 | Emergency (ER) | payer OTHER ==
[2021-02-25 12:16] VITALS: TEMP 97.4
[2021-02-25] MEDS ORDERED: MORPHINE SULFATE 4 MG/ML SYRINGE IM STA (12:41)
[2021-02-25] MEDS ORDERED: KETOROLAC 15 MG/ML 1 ML VIAL IM STA (12:42)
--- NOTE | 2021-02-25 12:44 | ED ---
General Adult HPI - General Chief complaint: Back Pain/Injury Stated complaint: Low back pain Time Seen by Provider: 02/25/21 12:34 Source: patient Mode of arrival: ambulatory Limitations: no limitations - History of Present Illness Initial comments: Dictation was produced using [employer] dictation software. please excuse any grammatical, word or spelling errors. Chief Complaint: 55-year-old male withpast medical history presents with low back pain History of Present Illness: 55-year-old male who presents with low back pain. Patient states that yesterday he was trying to put away some Tupperware in lower cabinets. He is bending over when all of a sudden he felt a sharp pain in his back. Patient states it hurts when he turns to his left. States the pain radiates towards his left buttocks. Patient denies any numbness tingling paresthesias to the lower extremity is. No urinary or stool incontinence. Patient states it hurts whenever he tries to stand up from a sitting position. Denies any fevers. Patient able to stand and ambulate with minimal couple medications. The ROS documented in this emergency department record has been reviewed and confirmed by me. Those systems with pertinent positive or negative responses have been documented in the HPI. All other systems are other negative and/or noncontributory. PHYSICAL EXAM: General Impression: Alert and oriented x3, not in acute distress HEENT: Normocephalic atraumatic, extra-ocular movements intact, pupils equal and reactive to light bilaterally, mucous membranes moist. Cardiovascular: Heart regular rate and rhythm Chest: Able to complete full sentences, no retractions, no tachypnea Abdomen: abdomen soft, non-tender, non-distended, no organomegaly Musculoskeletal: Pulses present and equal in all extremities, no peripheral edema Motor: no focal deficits noted Neurological: CN II-XII grossly intact, no focal motor or sensory deficits noted Skin: Intact with no visualized rashes Psych: Normal affect and mood ED course: 55-year-old well-appearing male presents with clinical presentation consistent with back strain. Vital Signs upon arrival are within acceptable limits. Patient has no red flag symptoms. Urinalysis and lumbar x-rays unremarkable there is evidence of degenerative disease. Clinical presentation consistent with back strain. Patient discharged told to follow-up with primary care doctor. - Related Data Home Medications Medication Instructions Recorded Confirmed Escitalopram Oxalate [Lexapro] 20 mg PO DAILY 06/26/16 11/29/20 Ferrous Sulfate [Iron (65 MG 325 mg PO DAILY 10/31/19 11/29/20 Elemental)] QUEtiapine FUMARATE [SEROquel] 200 mg PO HS 10/31/19 11/29/20 Atorvastatin [Lipitor] 10 mg PO HS 11/29/20 11/29/20 Cholecalciferol (Vitamin D3) 125 mcg PO DAILY 11/29/20 11/29/20 [Vitamin D3 (5000 Iu)] Omeprazole 20 mg PO DAILY 11/29/20 11/29/20 Paliperidone IM [Invega Sustenna] 234 mg IM Q28D 11/29/20 11/29/20 Previous Rx's Medication Instructions Recorded Multivitamins, Thera [Multivitamin 1 tab PO DAILY #30 tablet 11/02/19 (formulary)] HYDROcodone/APAP 5-325MG [[place] 1 tab PO Q6HR PRN 3 Days #12 tab 02/25/21 5-325] Allergies Allergy/AdvReac Type Severity Reaction Status Date / Time haloperidol [From Haldol] Allergy Anaphylaxis Verified 02/25/21 12:13 Review of Systems ROS Statement: Those systems with pertinent positive or pertinent negative responses have been documented in the HPI. ROS Other: All systems not noted in ROS Statement are negative. Past Medical History Past Medical History: Chest Pain / Angina Additional Past Medical History / Comment(s): hernia, inguinal/umb, dizzyness when laying down or standing too quickly History of Any Multi-Drug Resistant Organisms: None Reported Past Surgical History: Hernia Repair, Orthopedic Surgery Additional Past Surgical History / Comment(s): 05-03-16 robotic assisted lap lt inguinal hernia repair, right foot Past Anesthesia/Blood Transfusion Reactions: No Reported Reaction Past Psychological History: Anxiety, Bipolar, Depression, Schizophrenia Smoking Status: Current every day smoker Past Alcohol Use History: Daily Past Drug Use History: None Reported - Past Family History Mother Family Medical History: Cancer Additional Family Medical History / Comment(s): bronchitis Father Family Medical History: No Reported History General Exam Limitations: no limitations Course Vital Signs 02/25/21 12:13 Temperature 97.4 F L Pulse Rate 85 Respiratory 16 Rate Blood Pressure 126/81 O2 Sat by Pulse 100 Oximetry Medical Decision Making - Lab Data Lab Results 09/25/21 Range/Units 12:58 Urine Color Yellow Urine Appearance Clear (Clear) Urine pH 6.0 (5.0-8.0) Ur Specific [place] 1.017 (1.001-1.035) Urine Protein Negative (Negative) Urine Glucose (UA) Negative (Negative) Urine Ketones Negative (Negative) Urine Blood Negative (Negative) Urine Nitrite Negative (Negative) Urine Bilirubin Negative (Negative) Urine Urobilinogen <2.0 (<2.0) mg/dL Ur Leukocyte Esterase Negative (Negative) Disposition Clinical Impression: Mechanical back pain Disposition: HOME SELF-CARE Condition: Good Instructions (If sedation given, give patient instructions): Acute Low Back Pain (ED) Prescriptions: HYDROcodone/APAP 5-325MG [[place] 5-325] 1 tab PO Q6HR PRN 3 Days #12 tab PRN Reason: Severe Pain Is patient prescribed a controlled substance at d/c from ED?: Yes If prescribed controlled substance>3 days was MAPS reviewed?: Prescribed <3 Days Referrals: [facility] [Primary Care Provider] - 1-2 days
[2021-02-25 13:23] LABS: Appearance,Urine Clear (Clear); Bilirubin,Urine Negative (Negative); Blood,Urine Negative (Negative); Color,Urine Yellow; Glucose,Urine (UA) Negative (Negative); Ketones,Urine Negative (Negative); Leukocyte Esterase,Urine Negative (Negative); Nitrite,Urine Negative (Negative); Protein,Urine Negative (Negative); Specific Gravity,Urine 1.017 (1.001-1.035); Urobilinogen,Urine <2.0 mg/dL (<2.0)
--- NOTE | 2021-02-25 13:28 | XR ---
Lumbar spine HISTORY: Back pain COMPARISON: 07/23/2018. TECHNIQUE: 3 views lumbar spine were obtained FINDINGS: The lumbar vertebral segments are normal in height and alignment and there is no fracture subluxation . There is mild narrowing of the L3-4 disc indicating mild degenerative disc disease. There is mild facet degeneration at the L5-S1 level. Comparison to the prior study reveals no signifi cant interval change. Pression: 1. No evidence of fracture or malalignment. 2. Mild degenerative disc disease at the L3-4 level and mild facet arthropathy at the L5-S1 level.
[2021-02-25 13:57] VITALS: BP 128/79; PULSE 83; RESP 18
== END 2021-02-25 13:55 | disposition home or self-care (01) ==
LOC: EC 12:11
DX: M54.6 Pain in thoracic spine (principal); F17.200 Nicotine dependence, unspecified, uncomplicated; Z88.8 Allergy status to other drugs, medicaments and biological substances
CPT/HCPCS: 81003; 72100; 99283; 96372; J1885

== ENCOUNTER 2022-02-26 13:27 | Emergency (ER) | payer OTHER ==
[2022-02-26 13:57] VITALS: BP 123/81; PULSE 98; RESP 18; TEMP 97.5
--- NOTE | 2022-02-26 15:40 | XR ---
EXAMINATION TYPE: XR chest 2V DATE OF EXAM: 02/26/2022 COMPARISON: 11/29/2020 HISTORY: 56-year-old male with cough and congestion TECHNIQUE: PA and lateral views FINDINGS: Heart normal size. Aorta and pulmonary vasculature are within normal limits. Some strandy atelectasis at the mid lungs. No julian consolidation or pleural effusion. IMPRESSION: Some mild strandy atelectasis in the mid lungs. No definite acute process seen.
[2022-02-26] MEDS ORDERED: dexAMETHasone 2 MG TAB PO STA (16:30)
[2022-02-26] MEDS ORDERED: AZITHROMYCIN 500 MG TAB PO STA (16:30)
--- NOTE | 2022-02-26 16:34 | ED ---
General Adult HPI - General Chief complaint: Upper Respiratory Infection Stated complaint: Congestion,Headaches Time Seen by Provider: 02/26/22 14:49 Source: patient, RN notes reviewed, old records reviewed Mode of arrival: ambulatory - History of Present Illness Initial comments: Patient is a 56-year-old male with past medical history remarkable for daily alcohol use, history of angina presents emergency Department complaining of upper respiratory symptoms since last Saturday. Is concerned he may have Covid. Does have a positive Covid contact 5 or 6 days ago. Endorsing nasal congestion, chest congestion. Has a productive cough of clearish yellow mucus. Denies chest pain. Denies shortness of breath. Denies abdominal pain, nausea, vomiting. Denies diarrhea. Believes he was vaccinated for Covid. Was tested twice already for Covid last week, both were negative. Presents today for further testing and concern for pneumonia. Denies fevers. Denies fatigue. D enies myalgia. Presents for further evaluation. - Related Data Home Medications Medication Instructions Recorded Confirmed Escitalopram Oxalate [Lexapro] 20 mg PO DAILY 06/26/16 11/29/20 Ferrous Sulfate [Iron (65 MG 325 mg PO DAILY 10/31/19 11/29/20 Elemental)] QUEtiapine FUMARATE [SEROquel] 200 mg PO HS 10/31/19 11/29/20 Atorvastatin [Lipitor] 10 mg PO HS 11/29/20 11/29/20 Cholecalciferol (Vitamin D3) 125 mcg PO DAILY 11/29/20 11/29/20 [Vitamin D3 (5000 Iu)] Omeprazole 20 mg PO DAILY 11/29/20 11/29/20 Paliperidone IM [Invega Sustenna] 234 mg IM Q28D 11/29/20 11/29/20 Previous Rx's Medication Instructions Recorded Multivitamins, Thera [Multivitamin 1 tab PO DAILY #30 tablet 11/02/19 (formulary)] HYDROcodone/APAP 5-325MG [[place] 1 tab PO Q6HR PRN 3 Days #12 tab 02/25/21 5-325] Azithromycin [Zithromax] 250 mg PO DAILY 4 Days #4 tab 02/26/22 Allergies Allergy/AdvReac Type Severity Reaction Status Date / Time haloperidol [From Haldol] Allergy Anaphylaxis Verified 02/26/22 13:57 Review of Systems ROS Statement: Those systems with pertinent positive or pertinent negative responses have been documented in the HPI. Review of Systems: CONST: Denies fever EYES: Denies blurry vision ENT: Endorses nasal congestion C/V: Denies Chest pain RESP: Denies shortness of breath GI: Denies abdominal pain : Denies dysuria SKIN: Denies rash. MSK: Denies joint pain. NEURO: Denies headache ROS Other: All systems not noted in ROS Statement are negative. Past Medical History Past Medical History: Chest Pain / Angina Additional Past Medical History / Comment(s): hernia, inguinal/umb, dizzyness when laying down or standing too quickly History of Any Multi-Drug Resistant Organisms: None Reported Past Surgical History: Hernia Repair, Orthopedic Surgery Additional Past Surgical History / Comment(s): 05-03-16 robotic assisted lap lt inguinal hernia repair, right foot Past Anesthesia/Blood Transfusion Reactions: No Reported Reaction Past Psychological History: Anxiety, Bipolar, Depression, Schizophrenia Smoking Status: Current every day smoker Past Alcohol Use History: Daily Past Drug Use History: None Reported - Past Family History Mother Family Medical History: Cancer Additional Family Medical History / Comment(s): bronchitis Father Family Medical History: No Reported History General Exam - General Exam Comments Initial Comments: General: Appears in no acute distress. HEAD: Normal with no signs of head trauma. EYES: PERRLA, EOMI, conjunctiva normal, no discharge. ENT: Hearing grossly intact, normal oropharynx. Moist mucous members. RESPIRATORY: Clear breath sounds bilaterally. No wheezes, rales, or rhonchi. No hypoxia. No respiratory distress. C/V: Regular rate and rhythm. S1 and S2 auscultated, no edema, peripheral pulses 2+ and intact throughout ABD: Abd is soft, nontender, nondistended EXT: Normal range of motion, no obvious deformity SKIN: No rashes or lesions observed on exposed skin. NEURO: Alert and oriented 4. Course Vital Signs 02/26/22 13:54 Temperature 97.5 F L Pulse Rate 98 Respiratory 18 Rate Blood Pressure 123/81 O2 Sat by Pulse 98 Oximetry Medical Decision Making - Medical Decision Making Based on the patient's presentation and physical exam, he does present for upper respiratory illness symptoms at this time. Vital signs are within normal limits. No respiratory distress. I did recommend we obtain a chest x-ray as w ell as Covid flu testing. Patient was in agreement this plan. Chest x-ray shows no acute cardio pulmonary process. Covid and flu swabs were negative. I discussed the results with the patient. I will treat him for bronchitis at this time with productive cough. He'll be given a single dose of steroids prior to discharge and started on azithromycin. He was in agreement this plan. He'll follow-up with his PCP outpatient. Strict return precautions were discussed. Vital signs remained within normal limits. I will provide the patient with a prescription for azithromycin. I instructed the patient to follow up with their PCP in the next 1-3 days. I explained that the patient should return to the emergency department if they experience any worsening symptoms. Strict return precautions were discussed with the patient. The patient expressed understanding of these instructions. I answered all questions that the patient had. The patient was discharged home in good condition with their prescriptions and follow up information. - Lab Data Lab Results 02/26/22 02/26/22 Range/Units 15:35 15:35 Coronavirus (PCR) Not Detected (Not Detectd) Influenza Type A RNA Not Detected (Not Detectd) Influenza Type B (PCR) Not Detected (Not Detectd) Disposition Clinical Impression: Bronchitis Disposition: HOME SELF-CARE Instructions (If sedation given, give patient instructions): Upper Respiratory Infection (ED), Acute Bronchitis (ED) Prescriptions: Azithromycin [Zithromax] 250 mg PO DAILY 4 Days #4 tab Is patient prescribed a controlled substance at d/c from ED?: No [facility] [[facility] - 1-2 days Time of Disposition: 16:20
== END 2022-02-26 16:54 | disposition home or self-care (01) ==
LOC: EC 13:27
DX: J40 Bronchitis, not specified as acute or chronic (principal); F17.200 Nicotine dependence, unspecified, uncomplicated; Z20.822 Contact with and (suspected) exposure to COVID-19; Z88.8 Allergy status to other drugs, medicaments and biological substances
CPT/HCPCS: 87502; 87635; 71046; 99283; J8540

== ENCOUNTER 2022-12-06 11:22 | Emergency (ER) | payer OTHER ==
--- NOTE | 2022-12-06 12:53 | ED ---
General Adult HPI - General Chief complaint: ENT Stated complaint: L Side of Face pain Time Seen by Provider: 12/06/22 12:30 Source: patient, RN notes reviewed Mode of arrival: ambulatory Limitations: no limitations - History of Present Illness Initial comments: Patient is a pleasant 57-year-old male presenting to the emergency department with concern for pain. Onset of symptoms was around 5 weeks ago. Patient has discomfort on the left side of the back of the tongue. Patient has concern like there may be some bit of erosion. Patient is not able to visualize this area or actually feel it otherwise. No dyspnea. Discomfort does increase with swallowing. No fever. Patient states throat itself was not sore swollen. Patient states occasionally there is mild discomfort left ear. Patient has mild rhinorrhea. No fever. No injury. - Related Data Home Medications Medication Instructions Recorded Confirmed Escitalopram Oxalate [Lexapro] 20 mg PO DAILY 06/26/16 11/29/20 Ferrous Sulfate [Iron (65 MG 325 mg PO DAILY 10/31/19 11/29/20 Elemental)] QUEtiapine FUMARATE [SEROquel] 200 mg PO HS 10/31/19 11/29/20 Atorvastatin [Lipitor] 10 mg PO HS 11/29/20 11/29/20 Cholecalciferol (Vitamin D3) 125 mcg PO DAILY 11/29/20 11/29/20 [Vitamin D3 (5000 Iu)] Omeprazole 20 mg PO DAILY 11/29/20 11/29/20 Paliperidone IM [Invega Sustenna] 234 mg IM Q28D 11/29/20 11/29/20 Previous Rx's Medication Instructions Recorded Multivitamins, Thera [Multivitamin 1 tab PO DAILY #30 tablet 11/02/19 (formulary)] HYDROcodone/APAP 5-325MG [[place] 1 tab PO Q6HR PRN 3 Days #12 tab 02/25/21 5-325] Azithromycin [Zithromax] 250 mg PO DAILY 4 Days #4 tab 02/26/22 Allergies Allergy/AdvReac Type Severity Reaction Status Date / Time haloperidol [From Haldol] Allergy Anaphylaxis Verified 12/06/22 12:18 Review of Systems ROS Statement: Those systems with pertinent positive or pertinent negative responses have been documented in the HPI. ROS Other: All systems not noted in ROS Statement are negative. Constitutional: Denies: fever Eyes: Denies: eye pain ENT: Reports: as per HPI. Denies: throat pain Respiratory: Denies: cough Cardiovascular: Denies: chest pain Endocrine: Reports: fatigue Gastrointestinal: Denies: abdominal pain Genitourinary: Denies: dysuria Past Medical History Past Medical History: Chest Pain / Angina Additional Past Medical History / Comment(s): hernia, inguinal/umb, dizzyness when laying down or standing too quickly History of Any Multi-Drug Resistant Organisms: None Reported Past Surgical History: Hernia Repair, Orthopedic Surgery Additional Past Surgical History / Comment(s): 05-03-16 robotic assisted lap lt inguinal hernia repair, right foot Past Anesthesia/Blood Transfusion Reactions: No Reported Reaction Past Psychological History: Anxiety, Bipolar, Depression, Schizophrenia Smoking Status: Current every day smoker Past Alcohol Use History: Daily Past Drug Use History: None Reported - Past Family History Mother Family Medical History: Cancer Additional Family Medical History / Comment(s): bronchitis Father Family Medical History: No Reported History General Exam Limitations: no limitations General appearance: alert, in no apparent distress Head exam: Present: normocephalic Eye exam: Present: normal appearance ENT exam: Present: normal exam, normal oropharynx, TM's normal bilaterally Expanded Mouth exam: Present: normal external inspection, tongue normal. Absent: d rooling, trismus, muffled voice, tongue elevation Teeth exam: Present: dental caries (Without tenderness or swelling) Throat exam: normal inspection Neck exam: Present: normal inspection Respiratory exam: Present: normal lung sounds bilaterally Cardiovascular Exam: Present: regular rate, normal rhythm GI/Abdominal exam: Present: soft. Absent: tenderness Extremities exam: Present: normal inspection Neurological exam: Present: alert. Absent: motor sensory deficit Psychiatric exam: Present: normal affect, normal mood Skin exam: Present: normal color Course Vital Signs 12/06/22 12:15 Temperature 98.9 F Pulse Rate 73 Respiratory 20 Rate Blood Pressure 115/76 O2 Sat by Pulse 98 Oximetry Medical Decision Making - Medical Decision Making Was pt. sent in by a medical professional or institution (, PA, DAY TREATMENT CLINICIAN/ART THERAPIST, urgent care, hospital, or custodial...) When possible be specific @ -No Did you speak to anyone other than the patient for history (EMS, parent, family, police, friend...)? What history was obtained from this source @ -No Did you review nursing and triage notes (agree or disagree)? Why? @ -I reviewed and agree with nursing and triage notes Were old charts reviewed (outside hosp., previous admission, EMS record, old EKG, old radiological studies, urgent care reports/EKG's, custodial records)? Report findings @ -No old charts were reviewed Differential Diagnosis (chest pain, altered mental status, abdominal pain women, abdominal pain men, vaginal bleeding, weakness, fever, dyspnea, syncope, headache, dizziness, GI bleed, back pain, seizure, CVA, palpatations, mental health)? @ -not applicable EKG interpreted by me (3pts min.). @ -As above X-rays interpreted by me (1pt min.). @ -Soft tissue neck without acute abnormality CT interpreted by me (1pt min.). @ -None done U/S interpreted by me (1pt. min.). @ -None done What testing was considered but not performed or refused? (CT, X-rays, U/S, labs)? Why? @ -None What meds were considered but not given or refused? Why? @ -None Did you discuss the management of the patient with other professionals (professionals i.e. , PA, DAY TREATMENT CLINICIAN/ART THERAPIST, lab, RT, psych nurse, social media strategist, boiler tester, teacher, security officers and guards, director case)? Give summary @ -No Was smoking cessation discussed for >3mins.? @ -No Was critical care preformed (if so, how long)? @ -No Were there social determinants of health that impacted care today? How? (Homelessness, low income, unemployed, alcoholism, drug addiction, transportation, low edu. Level, literacy, decrease access to med. care, [facility], rehab)? @ -No Was there de-escalation of care discussed even if they declined (Discuss DNR or withdrawal of care, Hospice)? DNR status @ -No What co-morbidities impacted this encounter? (DM, HTN, Smoking, COPD, CAD, Cancer, CVA, ARF, Chemo, Hep., AIDS, mental health diagnosis, sleep apnea, morbid obesity)? @ -None Was patient admitted / discharged? Hospital course, mention meds given and route, prescriptions, significant lab abnormalities, going to OR and other pertinent info. @ -Patient reevaluated and unchanged. Patient was updated on results and need for follow-up with specifically ENT. Patient is made aware of importance regarding this and that he will likely need further testing done including imaging or scope. Patient will be provided mouthwash for discomfort Undiagnosed new problem with uncertain prognosis? @ -Patient has undiagnosed problem with uncertain prognosis Drug Therapy requiring intensive monitoring for toxicity (Heparin, Nitro, Insulin, Cardizem)? @ -No Were any procedures done? @ -No Diagnosis/symptom? @ -Tongue pain Acute, or Chronic, or Acute on Chronic? @ -Acute Uncomplicated (without systemic symptoms) or Complicated (systemic symptoms)? @ -default Side effects of treatment? @ -No Exacerbation, Progression, or Severe Exacerbation? @ -No Poses a threat to life or bodily function? How? (Chest pain, [place], [place], pneumonia, PE, COPD, DKA, ARF, appy, cholecystitis, CVA, Diverticulitis, Homicidal, Suicidal, threat to staff... and all critical care pts) @ -No Disposition Clinical Impression: Tongue pain Disposition: HOME SELF-CARE Condition: Stable Additional Instructions: Please do follow-up with your primary care physician and your nose and throat specialist in the next couple days for recheck. He will need further evaluation, possible further imaging, possible scope. Return for increased pain, difficulty breathing, not tolerating oral intake, worsening symptoms or other concerns. Prescription for Magic mouthwash. Is patient prescribed a controlled substance at d/c from ED?: No Referrals: [facility] [Primary Care Provider] - 1-2 days Cruz Bentley DO [Doctor of Osteopathic Medicine] - 1-2 days Time of Disposition: 13:27
--- NOTE | 2022-12-06 13:10 | XR ---
EXAMINATION TYPE: XR soft tissue neck DATE OF EXAM: 12/06/2022 12:59 PM INDICATION: Patient age:Male; 57 years old; Reason for study: pain; . COMPARISON: 03/15/2020 TECHNIQUE: The soft tissues of the neck were imaged in frontal and lateral views. FINDINGS: The prevertebral soft tissues are unremarkable. There is no evidence of mass effect or trac heal deviation. No acute osseous abnormality demonstrated. No evidence of subglottic narrowing. IMPRESSION: No significant abnormality identified within the soft tissues of the neck.
[2022-12-06 13:55] VITALS: BP 120/74; PULSE 70; RESP 18; TEMP 98.7
== END 2022-12-06 13:55 | disposition home or self-care (01) ==
LOC: EC 11:22
DX: K14.6 Glossodynia (principal); F41.9 Anxiety disorder, unspecified; F31.9 Bipolar disorder, unspecified; F17.200 Nicotine dependence, unspecified, uncomplicated; Z79.899 Other long term (current) drug therapy; Z88.8 Allergy status to other drugs, medicaments and biological substances
CPT/HCPCS: 70360; 99283

== ENCOUNTER 2023-01-20 08:31 | Emergency (ER) | payer OTHER ==
[2023-01-20 08:45] VITALS: BP 132/80; PULSE 76; RESP 18; TEMP 98
--- NOTE | 2023-01-20 08:58 | ED ---
ENT HPI - General Chief complaint: Dental/Oral Stated complaint: sores in mouth Time Seen by Provider: 01/20/23 08:45 Source: patient, RN notes reviewed Mode of arrival: ambulatory Limitations: no limitations - History of Present Illness Initial comments: 57-year-old male presents emergency Department with chief complaint of lump in his mouth. He states his been there for 3-4 weeks. Patient's old dentist a recent been told him up fine. He states he still feels a lump in his mouth has meant that he uses tobacco excessively. He states that he's had no open lesions or sores does feel a lump on the left side of his tongue. - Related Data Home Medications Medication Instructions Recorded Confirmed Escitalopram Oxalate [Lexapro] 20 mg PO DAILY 06/26/16 11/29/20 Ferrous Sulfate [Iron (65 MG 325 mg PO DAILY 10/31/19 11/29/20 Elemental)] QUEtiapine FUMARATE [SEROquel] 200 mg PO HS 10/31/19 11/29/20 Atorvastatin [Lipitor] 10 mg PO HS 11/29/20 11/29/20 Cholecalciferol (Vitamin D3) 125 mcg PO DAILY 11/29/20 11/29/20 [Vitamin D3 (5000 Iu)] Omeprazole 20 mg PO DAILY 11/29/20 11/29/20 Paliperidone IM [Invega Sustenna] 234 mg IM Q28D 11/29/20 11/29/20 Previous Rx's Medication Instructions Recorded Multivitamins, Thera [Multivitamin 1 tab PO DAILY #30 tablet 11/02/19 (formulary)] HYDROcodone/APAP 5-325MG [[place] 1 tab PO Q6HR PRN 3 Days #12 tab 02/25/21 5-325] Azithromycin [Zithromax] 250 mg PO DAILY 4 Days #4 tab 02/26/22 Allergies Allergy/AdvReac Type Severity Reaction Status Date / Time haloperidol [From Haldol] Allergy Anaphylaxis Verified 01/20/23 08:44 Review of Systems ROS Statement: Those systems with pertinent positive or pertinent negative responses have been documented in the HPI. ROS Other: All systems not noted in ROS Statement are negative. Past Medical History Past Medical History: Chest Pain / Angina Additional Past Medical History / Comment(s): hernia, inguinal/umb, dizzyness when laying down or standing too quickly History of Any Multi-Drug Resistant Organisms: None Reported Past Surgical History: Hernia Repair, Orthopedic Surgery Additional Past Surgical History / Comment(s): 05-03-16 robotic assisted lap lt inguinal hernia repair, right foot Past Anesthesia/Blood Transfusion Reactions: No Reported Reaction Past Psychological History: Anxiety, Bipolar, Depression, Schizophrenia Smoking Status: Current every day smoker Past Alcohol Use History: Daily Past Drug Use History: None Reported - Past Family History Mother Family Medical History: Cancer Additional Family Medical History / Comment(s): bronchitis Father Family Medical History: No Reported History General Exam Limitations: no limitations General appearance: alert, in no apparent distress Head exam: Present: atraumatic, normocephalic, normal inspection Eye exam: Present: normal appearance, PERRL, EOMI. Absent: scleral icterus, conjunctival injection, periorbital swelling ENT exam: Present: mucous membranes moist, TM's normal bilaterally. Absent: normal oropharynx (Palpable lump on the left side of his tongue, no superficial lesions or sores noted) Neck exam: Present: normal inspection, full ROM. Absent: tenderness, meningismus, lymphadenopathy Respiratory exam: Present: normal lung sounds bilaterally. Absent: respiratory distress, wheezes, rales, rhonchi, stridor Course Vital Signs 01/20/23 08:42 Temperature 98 F Pulse Rate 76 Respiratory 18 Rate Blood Pressure 132/80 O2 Sat by Pulse 98 Oximetry Medical Decision Making - Medical Decision Making Was pt. sent in by a medical professional or institution (, PA, CORPSMAN, urgent care, hospital, or snf...) When possible be specific @ -No Did you speak to anyone other than the patient for history (EMS, parent, family, police, friend...)? What history was obtained from this source @ -No Did you review nursing and triage notes (agree or disagree)? Why? @ -I reviewed and agree with nursing and triage notes Were old charts reviewed (outside hosp., previous admission, EMS record, old EKG, old radiological studies, urgent care reports/EKG's, snf records)? Report findings @ -No old charts were reviewed Differential Diagnosis (chest pain, altered mental status, abdominal pain women, abdominal pain men, vaginal bleeding, weakness, fever, dyspnea, syncope, headache, dizziness, GI bleed, back pain, seizure, CVA, palpatations, mental health, musculoskeletal)? @ -Dental infection, cancer, abscess EKG interpreted by me (3pts min.). @ -None X-rays interpreted by me (1pt min.). @ -None done CT interpreted by me (1pt min.). @ -None done U/S interpreted by me (1pt. min.). @ -None done What testing was considered but not performed or refused? (CT, X-rays, U/S, labs)? Why? @ -None What meds were considered but not given or refused? Why? @ -None Did you discuss the management of the patient with other professionals (professionals i.e. Dr., PA, CORPSMAN, lab, RT, psych nurse, criminal justice social worker, radon inspector, teacher, student liaison officer, returned case inspector)? Give summary @ -No Was smoking cessation discussed for >3mins.? @ -No Was critical care preformed (if so, how long)? @ -No Were there social determinants of health that impacted care today? How? (H omelessness, low income, unemployed, alcoholism, drug addiction, transportation, low edu. Level, literacy, decrease access to med. care, [facility], rehab)? @ -No Was there de-escalation of care discussed even if they declined (Discuss DNR or withdrawal of care, Hospice)? DNR status @ -No What co-morbidities impacted this encounter? (DM, HTN, Smoking, COPD, CAD, Cancer, CVA, ARF, Chemo, Hep., AIDS, mental health diagnosis, sleep apnea, morbid obesity)? @ -None Was patient admitted / discharged? Hospital course, mention meds given and route, prescriptions, significant lab abnormalities, going to OR and other pertinent info. @ -Discharge patient is advised to follow-up with ENT as there is concern for lump, masses mouth we discussed possibility cancerous reasons. Undiagnosed new problem with uncertain prognosis? @ -No Drug Therapy requiring intensive monitoring for toxicity (Heparin, Nitro, Insulin, Cardizem)? @ -No Were any procedures done? @ -No Diagnosis/symptom? @ -Mouth lump Acute, or Chronic, or Acute on Chronic? @ -Acute Uncomplicated (without systemic symptoms) or Complicated (systemic symptoms)? @ -Uncomplicated Side effects of treatment? @ -No Exacerbation, Progression, or Severe Exacerbation? @ -No Poses a threat to life or bodily function? How? (Chest pain, [place], [place], pneumonia, PE, COPD, DKA, ARF, appy, cholecystitis, CVA, Diverticulitis, Homicidal, Suicidal, threat to staff... and all critical care pts) @ -No Disposition Clinical Impression: Lump in mouth Disposition: HOME SELF-CARE Condition: Stable Additional Instructions: Please return to the Emergency Department if symptoms worsen or any other concerns. Is patient prescribed a controlled substance at d/c from ED?: No Referrals: [facility] [Primary Care Provider] - 1-2 days Kike Ponce MD [STAFF PHYSICIAN] - 1-2 days Time of Disposition: 08:58
== END 2023-01-20 09:20 | disposition home or self-care (01) ==
LOC: EC 08:31
DX: R22.0 Localized swelling, mass and lump, head (principal); F31.9 Bipolar disorder, unspecified; F41.9 Anxiety disorder, unspecified; F20.9 Schizophrenia, unspecified; F17.200 Nicotine dependence, unspecified, uncomplicated; Z79.899 Other long term (current) drug therapy
CPT/HCPCS: 99282

== ENCOUNTER 2024-05-06 18:29 | Inpatient (IN) | payer OTHER ==
--- NOTE | 2024-05-06 19:01 | ED ---
General Adult HPI - General Chief complaint: Chest Pain Stated complaint: chest pain Time Seen by Provider: 05/06/24 18:50 Source: patient, EMS, RN notes reviewed, old records reviewed Mode of arrival: EMS Limitations: no limitations - History of Present Illness Initial comments: This is a 58-year-old male who presents to the emergency department stating he has throat and tongue cancer. Patient states he supposed to follow-up this coming week for further evaluation. Patient states he is here today because last night he started having some chest tightness and shortness of breath and has been continuing today and has been on and off. Patient does admit to some drinking today. Patient also states the pain seems to radiate into his neck. Patient denies any diaphoretic episodes. Patient denied any nausea vomiting diarrhea. - Related Data Home Medications Medication Instructions Recorded Confirmed Ferrous Sulfate [Iron (65 MG 325 mg PO DAILY 10/31/19 05/06/24 Elemental)] Cholecalciferol (Vitamin D3) 125 mcg PO DAILY 11/29/20 05/06/24 [Vitamin D3 (5000 Iu)] Rosuvastatin [Crestor] 10 mg PO DAILY 05/06/24 05/06/24 Sertraline [Zoloft] 100 mg PO DAILY 05/06/24 05/06/24 Allergies Allergy/AdvReac Type Severity Reaction Status Date / Time haloperidol [From Haldol] Allergy Anaphylaxis Verified 05/06/24 20:04 Review of Systems ROS Statement: Those systems with pertinent positive or pertinent negative responses have been documented in the HPI. ROS Other: All systems not noted in ROS Statement are negative. Past Medical History Past Medical History: Cancer, Chest Pain / Angina Additional Past Medical History / Comment(s): hernia, inguinal/umb, dizzyness when laying down or standing too quickly. throat cancer diagnosed january 2024 History of Any Multi-Drug Resistant Organisms: None Reported Past Surgical History: Hernia Repair, Orthopedic Surgery Additional Past Surgical History / Comment(s): 05-03-16 robotic assisted lap lt inguinal hernia repair, right foot Past Anesthesia/Blood Transfusion Reactions: No Reported Reaction Past Psychological History: Anxiety, Bipolar, Depression, Schizophrenia Smoking Status: Current every day smoker Past Alcohol Use History: Daily Past Drug Use History: None Reported - Past Family History Mother Family Medical History: Cancer Additional Family Medical History / Comment(s): bronchitis Father Family Medical History: No Reported History General Exam - General Exam Comments Initial Comments: GENERAL: Patient is well-developed and well-nourished. Patient is nontoxic and well- hydrated and is in no acute distress. ENT: Neck is soft and supple. No significant lymphadenopathy is noted. Oropharynx is clear. Moist mucous membranes. Neck has full range of motion without eliciting any pain. Patient has a mass on the left side of his tongue EYES: The sclera were anicteric and conjunctiva were pink and moist. Extraocular movements were intact and pupils were equal round and reactive to light. Eyelids were unremarkable. PULMONARY: Unlabored respirations. Good breath sounds bilaterally. No audible rales rhonchi or wheezing was noted. CARDIOVASCULAR: There is a regular rate and rhythm without any murmurs gallops or rubs. ABDOMEN: Soft and nontender with normal bowel sounds. SKIN: Skin is clear with no lesions or rashes and otherwise unremarkable. NEUROLOGIC: Patient is alert and oriented x3. Cranial nerves II through XII are grossly intact. Motor and sensory are also intact. Normal speech, volume and content. Symmetrical smile. MUSCULOSKELETAL: Normal extremities with adequate strength and full range of motion. No lower extremity swelling or edema. No calf tenderness. LYMPHATICS: No significant lymphadenopathy is noted PSYCHIATRIC: Normal psychiatric evaluation. Limitations: no limitations Course Vital Signs 05/06/24 05/06/24 18:46 20:00 Temperature 98.7 F Pulse Rate 90 85 Respiratory 17 20 Rate Blood Pressure 120/76 108/67 O2 Sat by Pulse 100 97 Oximetry Medical Decision Making - Medical Decision Making EKG is interpreted by myself. EKG shows sinus rhythm at 91 bpm LA interval 134 QRS is 123 QT interval is 367 QTc is 415. Patient's EKG shows no ST segment elevation or depression Was pt. sent in by a medical professional or institution (, PA, CORRESPONDENCE RENEW CLERK, urgent care, hospital, or residential...) When possible be specific @ -No Did you speak to anyone other than the patient for history (EMS, parent, family, police, friend...)? What history was obtained from this source @ -No Did you review nursing and triage notes (agree or disagree)? Why? @ -I reviewed and agree with nursing and triage notes Were old charts reviewed (outside hosp., previous admission, EMS record, old EKG, old radiological studies, urgent care reports/EKG's, residential records)? Report findings @ -No old charts were reviewed Differential Diagnosis? @ -Differential Chest Pain: Stable Angina, Unstable Angina, STEMI, NSTEMI Aortic Dissection, Pneumothorax, Musculoskeletal, Esophageal Spasm GERD, Cholecystitis, Pancreatitis, Zoster, this is not meant to be an all-inclusive list. EKG interpreted by me (3pts min.). @ -As above X-rays interpreted by me (1pt min.). @ -Chest x-ray shows no acute abnormality CT interpreted by me (1pt min.). @ -None done U/S interpreted by me (1pt. min.). @ -None done What testing was considered but not performed or refused? (CT, X-rays, U/S, labs)? Why? @ -None What meds were considered but not given or refused? Why? @ -None Did you discuss the management of the patient with other professionals (professionals i.e. , PA, CORRESPONDENCE RENEW CLERK, lab, RT, psych nurse, executive secretary social welfare, real estate lawyer, teacher, co founder and chief strategy officer, embedded case manager)? Give summary @ -Spoke with sound physicians agreed to admit the patient Was smoking cessation discussed for >3mins.? @ -No Was critical care preformed (if so, how long)? @ -No Were there social determinants of health that impacted care today? How? (Homelessness, low income, unemployed, alcoholism, drug addiction, transportation, low edu. Level, literacy, decrease access to med. care, [facility], rehab)? @ -No Was there de-escalation of care discussed even if they declined (Discuss DNR or withdrawal of care, Hospice)? DNR status @ -No What co-morbidities impacted this encounter? (DM, HTN, Smoking, COPD, CAD, Cancer, CVA, ARF, Chemo, Hep., AIDS, mental health diagnosis, sleep apnea, morbid obesity)? @ -None Was patient admitted / discharged? Hospital course, mention meds given and route, prescriptions, significant lab abnormalities, going to OR and other pertinent info. @ -Patient was intoxicated. Patient was given aspirin Nitropaste for the chest pain. Patient's troponin was normal EKG was normal patient will be admitted for chest pain. Undiagnosed new problem with uncertain prognosis? @ -No Drug Therapy requiring intensive monitoring for toxicity (Heparin, Nitro, Insulin, Cardizem)? @ -No Were any procedures done? @ -No Diagnosis/symptom? @ -Chest pain Acute, or Chronic, or Acute on Chronic? @ -Acute Uncomplicated (without systemic symptoms) or Complicated (systemic symptoms)? @ -Complicated Side effects of treatment? @ -No Exacerbation, Progression, or Severe Exacerbation? @ -No Poses a threat to life or bodily function? How? (Chest pain, [place], [place], pneumonia, PE, COPD, DKA, ARF, appy, cholecystitis, CVA, Diverticulitis, Homicidal, Gabrielle cidal, threat to staff... and all critical care pts) @ -Yes this can lead to an [place] and poor perfusion and endorgan dysfunction Diagnosis/symptom? @ -Alcohol intoxication Acute, or Chronic, or Acute on Chronic? @ -Acute Uncomplicated (without systemic symptoms) or Complicated (systemic symptoms)? @ -Complicated Side effects of treatment? @ -None Exacerbation, Progression, or Severe Exacerbation] @ -No Poses a threat to life or bodily function? @ -No - Lab Data Result diagrams: 05/06/24 19:11 05/06/24 19:11 Lab Results 05/06/24 05/06/24 05/06/24 Range/Units 19:11 19:11 19:11 WBC 8.1 (3.8-10.6) k/uL RBC 4.60 (4.30-5.90) m/uL Hgb 11.3 L (13.0-17.5) gm/dL Hct 35.1 L (39.0-53.0) % MCV 76.3 L (80.0-100.0) fL MCH 24.6 L (25.0-35.0) pg MCHC 32.2 (31.0-37.0) g/dL RDW 13.5 (11.5-15.5) % Plt Count 166 (150-450) k/uL MPV 7.9 Neutrophils % 65 % Lymphocytes % 24 % Monocytes % 6 % Eosinophils % 2 % Basophils % 1 % Neutrophils # 5.3 (1.3-7.7) k/uL Lymphocytes # 2.0 (1.0-4.8) k/uL Monocytes # 0.5 (0-1.0) k/uL Eosinophils # 0.2 (0-0.7) k/uL Basophils # 0.0 (0-0.2) k/uL PT 10.3 (10.0-12.5) sec INR 0.9 (<1.2) APTT 25.9 (22.0-30.0) sec Sodium 138 (137-145) mmol/L Potassium 3.8 (3.5-5.1) mmol/L Chloride 101 (98-107) mmol/L Carbon Dioxide 24 (22-30) mmol/L Anion Gap 13 mmol/L BUN 7 L (9-20) mg/dL Creatinine 0.72 (0.66-1.25) mg/dL Est GFR (CKD-EPI)AfAm >90 (>60 ml/min/1.73 sqM) Est GFR (CKD-EPI)NonAf >90 (>60 ml/min/1.73 sqM) Glucose 86 (74-99) mg/dL Calcium 8.7 (8.4-10.2) mg/dL Magnesium 1.4 L (1.6-2.3) mg/dL Total Bilirubin 0.3 (0.2-1.3) mg/dL AST 39 (17-59) U/L ALT 22 (4-49) U/L Alkaline Phosphatase 78 (38-126) U/L Troponin I (0.000-0.034) ng/mL Total Protein 7.5 (6.3-8.2) g/dL Albumin 4.0 (3.5-5.0) g/dL Serum Alcohol 127 mg/dL Influenza Type A (PCR) (Not Detectd) Influenza Type B (PCR) (Not Detectd) RSV (PCR) (Not Detectd) SARS-CoV-2 (PCR) (Not Detectd) 05/06/24 05/06/24 Range/Units 19:11 19:11 WBC (3.8-10.6) k/uL RBC (4.30-5.90) m/uL Hgb (13.0-17.5) gm/dL Hct (39.0-53.0) % MCV (80.0-100.0) fL MCH (25.0-35.0) pg MCHC (31.0-37.0) g/dL RDW (11.5-15.5) % Plt Count (150-450) k/uL MPV Neutrophils % % Lymphocytes % % Monocytes % % Eosinophils % % Basophils % % Neutrophils # (1.3-7.7) k/uL Lymphocytes # (1.0-4.8) k/uL Monocytes # (0-1.0) k/uL Eosinophils # (0-0.7) k/uL Basophils # (0-0.2) k/uL PT (10.0-12.5) sec INR (<1.2) APTT (22.0-30.0) sec Sodium (137-145) mmol/L Potassium (3.5-5.1) mmol/L Chloride (98-107) mmol/L Carbon Dioxide (22-30) mmol/L Anion Gap mmol/L BUN (9-20) mg/dL Creatinine (0.66-1.25) mg/dL Est GFR (CKD-EPI)AfAm (>60 ml/min/1.73 sqM) Est GFR (CKD-EPI)NonAf (>60 ml/min/1.73 sqM) Glucose (74-99) mg/dL Calcium (8.4-10.2) mg/dL Magnesium (1.6-2.3) mg/dL Total Bilirubin (0.2-1.3) mg/dL AST (17-59) U/L ALT (4-49) U/L Alkaline Phosphatase (38-126) U/L Troponin I <0.012 (0.000-0.034) ng/mL Total Protein (6.3-8.2) g/dL Albumin (3.5-5.0) g/dL Serum Alcohol mg/dL Influenza Type A (PCR) Not Detected (Not Detectd) Influenza Type B (PCR) Not Detected (Not Detectd) RSV (PCR) Not Detected (Not Detectd) SARS-CoV-2 (PCR) Not Detected (Not Detectd) Disposition Clinical Impression: Chest pain Disposition: ADMITTED IP TO THIS HOSP Referrals: [facility] [Primary Care Provider] - 1-2 days Time of Disposition: 20:27
[2024-05-06 19:43] LABS: Basophils % (A) 1 %; Eosinophils # (A) 0.2 k/uL (0-0.7); Eosinophils % (A) 2 %; HCT 35.1 % (39.0-53.0); HGB 11.3 gm/dL (13.0-17.5); Lymphocytes % (A) 24 %; MCH 24.6 pg (25.0-35.0); MCHC 32.2 g/dL (31.0-37.0); MCV 76.3 fL (80.0-100.0); Mean Platelet Volume 7.9; Monocytes # (A) 0.5 k/uL (0-1.0); Monocytes % (A) 6 %; Neutrophils # (A) 5.3 k/uL (1.3-7.7); Neutrophils % (A) 65 %; Platelet Count 166 k/uL (150-450); RDW 13.5 % (11.5-15.5); WBC 8.1 k/uL (3.8-10.6)
--- NOTE | 2024-05-06 19:48 | XR ---
EXAMINATION TYPE: XR chest 2V DATE OF EXAM: 05/06/2024 CLINICAL HISTORY: Chest pain TECHNIQUE: Frontal and lateral views of the chest are obtained. COMPARISON: Prior chest x-ray February 26, 2022 FINDINGS: There is no focal air space opacity, pleural effusion, or pneumothorax seen. The cardiac silhouette size remains within normal limits. The osseous structures are intact. IMPRESSION: No acute process. [facility] Diana, , 05/06/2024 7:46 PM
[2024-05-06 20:05] LABS: ALT 22 U/L (4-49); AST 39 U/L (17-59); African American GFR (CKD) >90 (>60 ml/min/1.73 sqM); Alkaline Phosphatase 78 U/L (38-126); Anion Gap 13 mmol/L; Blood Urea Nitrogen 7 mg/dL (9-20); Calcium 8.7 mg/dL (8.4-10.2); Carbon Dioxide 24 mmol/L (22-30); Chloride 101 mmol/L (98-107); Glucose 86 mg/dL (74-99); Magnesium 1.4 mg/dL (1.6-2.3); Non-African American GFR(CKD) >90 (>60 ml/min/1.73 sqM); Potassium 3.8 mmol/L (3.5-5.1); Sodium 138 mmol/L (137-145); Total Bilirubin 0.3 mg/dL (0.2-1.3); Total Protein 7.5 g/dL (6.3-8.2)
[2024-05-06 20:06] LABS: INR 0.9 (<1.2); Partial Thromboplastin Time 25.9 sec (22.0-30.0); Prothrombin Time 10.3 sec (10.0-12.5)
[2024-05-06] MEDS: ASPIRIN 81 MG PO STA (20:07)
[2024-05-06] MEDS: NITROGLYCERIN OINT 1 INCH/GM PACKET TOPICAL STA (20:09)
[2024-05-06] MEDS: SODIUM CHLORIDE 0.9% 1,000 ML IV STA (20:10)
[2024-05-06 20:20] LABS: Alcohol 127 mg/dL
[2024-05-06] MEDS ORDERED: NITROGLYCERIN SL TABS 0.4 MG TAB SUBLINGUAL PRN (20:27)
[2024-05-06] MEDS ORDERED: LORazepam 1 MG TAB PO PRN ×3 (20:29)
--- NOTE | 2024-05-06 22:49 | P.HPIM ---
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 Hay in [facility]), bipolar disorder, depression, schizoaffective disorder who also had chronic history of smoking and drinking alcohol on a daily basis presented to the emergency department for chest pain. Reports that last night he started having some chest tightness and shortness of breath and has been continuing today and has been on and off per ED notes. Patient reported walking up stairs at a friend's house when the chest pain started, and it got better after sitting down. Along with the chest pain patient also reported shortness of breath and felt like his throat was closing up. Patient reported the chest pain is a tight squeezing sensation and states the pain seems to radiate towards his neck. Patient denied any previous cardiac history. Patient does have a history of throat/tongue cancer diagnosed January 2024 and has a follow-up appointment on May 11, 2024. Most recent echo was done in 2020 and showed left ventricular EF between 50 to 55%. Patient does admit to some drinking today, denies any diaphoretic episodes, nausea, vomiting, diarrhea, hematochezia, melena. Patient did report feeling warm. Notably, patient had a x-ray of the neck performed December 2022 and it showed no significant abnormality identified within the soft tissues of the neck. ED documentation reviewed. In the ED patient was treated with 4 tablets of 81 mg aspirin, Nitro-Bid ointment, a bolus of normal saline. Vitals on admission temperature of 98.7, pulse rate 85, respiratory rate 20, blood pressure 108/67, O2 sat of 97% on room air EKG independently interpreted as sinus rhythm, left axis deviation, right bundle branch block CXR shows no acute process Labs on admission show WBC 8.1, hemoglobin 11.3, hematocrit 35.1, platelets 166, PT 10.3, PTT 25.9, INR 0.9, sodium of 138, potassium 3.8, chloride 101, carbon dioxide 24, BUN 7, creatinine 0.72, glucose 86, magnesium 1.4, troponin less than 0.012, serum alcohol of 127 Review of systems: Pertinent positives and negatives as discussed in HPI, a complete review of systems was performed and all other systems are negative. PMH:throat and tongue cancer, bipolar disorder, depression, schizoaffective disorder PSH: Robotic assisted lap left inguinal hernia repair in 2016 FMH: Mother has a history of cancer Allergies: Haloperidol Social history: Tobacco: Currently everyday smoker, smokes half a pack a day for the past 30 years Alcohol: Alcohol use on a daily basis, drinks 5 beers every day for the past 40 years Recreational drugs: Did report use of cocaine about 4 days ago Travel: No recent travel history Sick contacts: Patient's friend was sick recently Physical examination: Vital signs reviewed General: nontoxic, no distress, appears at stated age, well-appearing Derm: warm, dry, intact Head: atraumatic, normocephalic, symmetric Eyes: EOMI, anicteric sclera Mouth: no lip lesion, mucus membranes moist, no obvious abnormalities/visible lesions of the tongue Cardiovascular: S1 S2 reg, no murmur Lungs: CTA bilateral, no rhonchi, no rales, no accessory muscle use Abdominal: soft, non-tender to palpation, nondistended Extremities: No cyanosis, clubbing, or pedal edema. Neuro: Alert, Oriented, Gross neurological examination did not reveal any focal deficits. Intact upper and lower extremity muscle strength 5 out of 5. Slightly reduced sensation in the right lower extremity. Cranial nerves II to XII grossly intact. Psych: appropriate affect Assessment/Plan: Patient is a homeless 58-year-old male with past medical history of throat cancer diagnosed January 2024 and tongue cancer, bipolar disorder, depression, schizoaffective disorder who also has chronic history of smoking and drinking alcohol on a daily basis presented to the ED because last night he started having some chest tightness and shortness of breath and has been continuing today intermittently. Active: #. Chest pain with atypical features, r/o ACS EKG was largely unremarkable, showed sinus rhythm Troponin < 0.012 x 2 Patient's vitals have been stable Trend troponin Check Lipid panel C/w ASA and Statin C/w Nitro-bid ointment Cardiology consult Cardiac monitoring #. Hypomagnesemia Most recent magnesium at 1.4, target of 2.0 Replete magnesium with 3 g of magnesium sulfate Follow CMP #. Throat/tongue cancer Patient does follow with Dr. Darden in [place], was diagnosed with throat/tongue cancer in January 2024. Does have a follow-up appointment on May 11, 2024 and is scheduled for an outpatient oral MRI F/u CT soft tissue neck to evaluate for airway patency #. Iron deficiency anemia Patient's hemoglobin 11.3, MCV 76.3 likely due to iron deficiency anemia Check anemia panel Patient denied hematochezia or melena Patient reportedly had a colonoscopy about 7 years ago and the result was normal Chronic: #. Hyperlipidemia Started on Lipitor 80 mg po HS #. History of depression Continue sertraline 100 mg p.o. F: No restrictions E: Replete as required N: Heart healthy diet A: Ambulatory DVT prophylaxis: Lovenox The patient is admitted with an anticipated less than 2 midnight stay for evaluation of chest pain CODE STATUS: Full code Discussed with: Dr. Coyne Anticipated discharge place: Home Past Medical History Past Medical History: Cancer, Chest Pain / Angina Additional Past Medical History / Comment(s): hernia, inguinal/umb, dizzyness when laying down or standing too quickly. throat cancer diagnosed january 2024 History of Any Multi-Drug Resistant Organisms: None Reported Past Surgical History: Hernia Repair, Orthopedic Surgery Additional Past Surgical History / Comment(s): 05-03-16 robotic assisted lap lt inguinal hernia repair, right foot Past Anesthesia/Blood Transfusion Reactions: No Reported Reaction Past Psychological History: Anxiety, Bipolar, Depression, Schizophrenia Smoking Status: Current every day smoker Past Alcohol Use History: Daily Past Drug Use History: None Reported - Past Family History Mother Family Medical History: Cancer Additional Family Medical History / Comment(s): bronchitis Father Family Medical History: No Reported History Medications and Allergies Home Medications Medication Instructions Recorded Confirmed Type Ferrous Sulfate [Iron (65 MG 325 mg PO DAILY 10/31/19 05/06/24 History Elemental)] Cholecalciferol (Vitamin D3) 125 mcg PO DAILY 11/29/20 05/06/24 History [Vitamin D3 (5000 Iu)] Rosuvastatin [Crestor] 10 mg PO DAILY 05/06/24 05/06/24 History Sertraline [Zoloft] 100 mg PO DAILY 05/06/24 05/06/24 History Allergies Allergy/AdvReac Type Severity Reaction Status Date / Time haloperidol [From Haldol] Allergy Anaphylaxis Verified 05/06/24 20:04 Physical Exam Vitals: Vital Signs Temp Pulse Resp BP Pulse Ox 05/06/24 20:00 85 20 108/67 97 05/06/24 18:46 98.7 F 90 17 120/76 100 Intake and Output 05/06/24 05/06/24 05/06/24 06:59 14:59 22:59 Other: Weight 99.79 kg Results CBC & Chem 7: 05/06/24 19:11 05/06/24 19:11 Labs: Abnormal Lab Results - Last 24 Hours (Table) 05/06/24 05/06/24 Range/Units 19:11 19:11 Hgb 11.3 L (13.0-17.5) gm/dL Hct 35.1 L (39.0-53.0) % MCV 76.3 L (80.0-100.0) fL MCH 24.6 L (25.0-35.0) pg BUN 7 L (9-20) mg/dL Magnesium 1.4 L (1.6-2.3) mg/dL
[2024-05-07] MEDS: NITROGLYCERIN OINT 1 INCH/GM PACKET TOPICAL SCH (00:04)
--- NOTE | 2024-05-07 01:14 | CT ---
EXAM: CT Neck With Intravenous Contrast CLINICAL HISTORY: History of tongue mass. TECHNIQUE: Axial computed tomography images of the neck with intravenous contrast. CTDI is 8.5 mGy and DLP is 305.8 mGy-cm. This CT exam was performed using one or more of the following dose reduction techniques: automated exposure control, adjustment of the mA and/or kV according to patient size, and/or use of iterative reconstruction technique. COMPARISON: X-ray soft tissue neck 12/06/2022. FINDINGS: Asymmetric heterogeneous soft tissue fullness extending from the left base of tongue, extending superiorly from the left anterior margin of the vallecula along the left lateral aspect of the oropharynx. Margins of the soft tissue fullness are indistinct. Mild asymmetric infiltration left parapharyngeal fat. Infiltration abuts the left posterior inner margin of the left hemimandible without bony erosion or destruction. No prevertebral involvement. Uvula slightly prominent although otherwise unremarkable. The nasopharynx is unremarkable. No discrete wall enhancing lesion or evidence for a formed abscess. Regional vessels are intact without displacement. Parotid and submandibular glands unremarkable. No definite significant lymphadenopathy. Visualized lung apices are unremarkable. Degenerative changes of the cervical spine. IMPRESSION: Poorly defined soft tissue fullness consistent with a history of mass involving left base of tongue extending from the vallecula superiorly along mullins of the oropharynx. Mild effacement of the left lateral aspect of the oropharynx. Correlation with contrast enhanced MRI may be helpful for better characterization.
[2024-05-07] MEDS: ATORVASTATIN 80 MG TAB PO SCH (01:54)
[2024-05-07] MEDS: MAGNESIUM SULFATE-D5W PMX 1 GM in DEXTROSE/WATER 1 100ML.BAG IVPB SCH (01:54)
[2024-05-07 02:51] LABS: ALT 20 U/L (4-49); AST 35 U/L (17-59); African American GFR (CKD) >90 (>60 ml/min/1.73 sqM); Albumin 3.7 g/dL (3.5-5.0); Albumin/Globulin Ratio 1.1; Alkaline Phosphatase 78 U/L (38-126); Anion Gap 7 mmol/L; Blood Urea Nitrogen 6 mg/dL (9-20); Calcium 8.6 mg/dL (8.4-10.2); Carbon Dioxide 23 mmol/L (22-30); Chloride 107 mmol/L (98-107); Globulin 3.4 g/dL; Glucose 105 mg/dL (74-99); Non-African American GFR(CKD) >90 (>60 ml/min/1.73 sqM); Sodium 137 mmol/L (137-145); Total Bilirubin 0.4 mg/dL (0.2-1.3); Total Protein 7.1 g/dL (6.3-8.2)
[2024-05-07] MEDS: ACETAMINOPHEN TAB 325 MG TAB PO PRN (08:38)
[2024-05-07] MEDS: ASPIRIN 325 MG TAB PO SCH (08:38)
[2024-05-07] MEDS: CHOLECALCIFEROL 125 MCG (5000 IU) TABLET PO SCH (08:38)
[2024-05-07] MEDS: SERTRALINE 100 MG TAB PO SCH (08:38)
[2024-05-07] MEDS: ENOXAPARIN 40 MG/0.4 ML SYRINGE SQ SCH (08:38)
[2024-05-07] MEDS ORDERED: ATORVASTATIN 20 MG TAB PO SCH (09:00)
[2024-05-07 09:23] LABS: % Iron Saturation 27.44 (15.00-50.00); Chol/HDL Ratio 2.63 Ratio; Iron 73 UG/DL (65-175); LDL Cholesterol,Calculated 84.6 mg/dL (0.0-131.0); Total Iron Binding Capacity 266 UG/DL (228-460)
[2024-05-07] MEDS ORDERED: REGADENOSON 0.4 MG/5 ML SYRINGE IV PRN (10:16)
[2024-05-07] MEDS ORDERED: CAFFEINE CITRATE 60 MG/3 ML VIAL IV PRN (10:16)
[2024-05-07] MEDS ORDERED: AMINOPHYLLINE 500 MG/20 ML VIAL IV PRN (10:16)
--- NOTE | 2024-05-07 11:22 | P.CRDCN ---
History of Present Illness History of present illness: HISTORY OF PRESENT ILLNESS: This is a 58-year-old male with a past medical history significant for hyperlipidemia, depression, anxiety, bipolar disorder, schizophrenia, nicotine dependence, and alcohol abuse. Patient follows in the office with Dr. Rendon but has not been seen in the office since November 2021. We have been asked to see the patient in consultation for chest pain. Patient examined at the bedside. Patient states last night he was walking up the stairs when he began to feel dizzy and had chest pain. He states hes had this type of pain before but its been a long time. Denies fever or chills. Reports a mild cough. He reports having some shortness of breath. He states the pain continued until he called 911. He thinks the pain lasted about an hour. He states he was diagnosed with throat/tongue cancer recently and follows with a physician in [facility]. He states he is scheduled for an MRI and then a decision will be made regarding surgery versus chemo. DIAGNOSTICS: - EKG reveals sinus mechanism with right bundle branch block. - Chest xray negative for acute process - Laboratory data: WBC 8.1. Hemoglobin 11.3. Platelet count 166. Sodium 137. Potassium 4.0. BUN 6. Creatinine 0.72. Magnesium 1.4. Troponin negative x 3. - Current home cardiac medications include rosuvastatin 10 mg daily - Most recent echocardiogram obtained in November 2021 revealed normal EF, mild MR, mild TR - Patient underwent dobutamine stress echo in December 2019 which was negative for ischemia REVIEW OF SYSTEMS: At the time of my exam: CONSTITUTIONAL: Denies fever or chills. HEENT: Denies blurred vision, vision changes, or eye pain. Denies hemoptysis CARDIOVASCULAR: Denies chest pain. Denies orthopnea. Denies PND. Denies palpitations RESPIRATORY: Denies shortness of breath. GASTROINTESTINAL: Denies abdominal pain. Denies nausea or vomiting. HEMATOLOGIC: Denies bleeding disorders. GENITOURINARY: Denies any blood in urine. SKIN: Denies pruitis. Denies rash. PHYSICAL EXAM: VITAL SIGNS: Reviewed. GENERAL: Well-developed in no acute distress. HEENT: Head is normocephalic. Pupils are equal, round. Sclerae anicteric. Mucous membranes of the mouth are moist. Neck supple. No JVD or thyromegaly LUNGS: Respirations even and unlabored. Lungs essentially clear to auscultation bilaterally. HEART: Regular rate and rhythm. S1 and S2 heard. ABDOMEN: Soft. Nondistended. Nontender. EXTREMITIES: Normal range of motion. No clubbing or cyanosis. Peripheral pulses intact. No lower extremity edema NEUROLOGIC: Awake and alert. Oriented x 3. ASSESSMENT: Chest pain, troponin negative x 3 Acute alcohol intoxication, serum alcohol 127 on admission Hypomagnesemia Hyperlipidemia Throat/tongue cancer, follows in [facility], details unknown Depression Anxiety Bipolar disorder Schizophrenia Nicotine dependence History of alcohol abuse PLAN: An acute coronary event has been ruled out Obtain 2D echo to assess cardiac structure and function Resume home cardiac medications Patient to undergo Ada scan stress test today Also recommend CTA to r/o PE. Unable to be performed until [address] Will begin Lovenox 100mg BID until CTA is resulted. Smoking cessation encouraged. Patient to be referred to [place] quit line upon discharge Abstinence from alcohol recommended. Patient currently on CIWA scale Further recommendations pending patient course Nurse practitioner note has been reviewed by physician. Signing provider agrees with the documented findings, assessment, and plan of care documented by DELIVERY COORDINATOR as a scribe. Past Medical History Past Medical History: Cancer, Chest Pain / Angina Additional Past Medical History / Comment(s): hernia, inguinal/umb, dizzyness when laying down or standing too quickly. throat cancer diagnosed january 2024 History of Any Multi-Drug Resistant Organisms: None Reported Past Surgical History: Hernia Repair, Orthopedic Surgery Additional Past Surgical History / Comment(s): 05-03-16 robotic assisted lap lt inguinal hernia repair, right foot Past Anesthesia/Blood Transfusion Reactions: No Reported Reaction Past Psychological History: Anxiety, Bipolar, Depression, Schizophrenia Smoking Status: Current every day smoker Past Alcohol Use History: Daily Past Drug Use History: None Reported - Past Family History Mother Family Medical History: Cancer Additional Family Medical History / Comment(s): bronchitis Father Family Medical History: No Reported History Medications and Allergies Home Medications Medication Instructions Recorded Confirmed Type Ferrous Sulfate [Iron (65 MG 325 mg PO DAILY 10/31/19 05/06/24 History Elemental)] Cholecalciferol (Vitamin D3) 125 mcg PO DAILY 11/29/20 05/06/24 History [Vitamin D3 (5000 Iu)] Rosuvastatin [Crestor] 10 mg PO DAILY 05/06/24 05/06/24 History Sertraline [Zoloft] 100 mg PO DAILY 05/06/24 05/06/24 History Allergies Allergy/AdvReac Type Severity Reaction Status Date / Time haloperidol [From Haldol] Allergy Anaphylaxis Verified 05/06/24 20:04 Physical Exam Vitals: Vital Signs Temp Pulse Pulse Resp BP BP Pulse Ox 05/07/24 07:00 99.1 F 100 17 113/73 99 05/07/24 01:31 98.5 F 91 18 121/68 97 05/07/24 00:30 91 05/06/24 23:15 98.8 F 84 18 121/74 98 05/06/24 22:57 98.7 F 84 18 112/64 96 05/06/24 20:00 85 20 108/67 97 05/06/24 18:46 98.7 F 90 17 120/76 100 Intake and Output 05/06/24 05/07/24 05/07/24 22:59 06:59 14:59 Intake Total 0 Balance 0 Intake: Oral 0 Other: Voiding Method Toilet # Voids 2 Weight 99.79 kg 99.79 kg Results 05/06/24 19:11 05/07/24 01:10 Cardiac Enzymes 05/06/24 05/06/24 05/06/24 Range/Units 19:11 19:11 22:18 AST 39 (17-59) U/L Troponin I <0.012 <0.012 (0.000-0.034) ng/mL 05/07/24 05/07/24 Range/Units 01:10 01:10 AST 35 (17-59) U/L Troponin I <0.012 (0.000-0.034) ng/mL Coagulation 05/06/24 Range/Units 19:11 PT 10.3 (10.0-12.5) sec APTT 25.9 (22.0-30.0) sec CBC 05/06/24 Range/Units 19:11 WBC 8.1 (3.8-10.6) k/uL RBC 4.60 (4.30-5.90) m/uL Hgb 11.3 L (13.0-17.5) gm/dL Hct 35.1 L (39.0-53.0) % Plt Count 166 (150-450) k/uL Comprehensive Metabolic Panel 05/06/24 05/07/24 Range/Units 19:11 01:10 Sodium 138 137 (137-145) mmol/L Potassium 3.8 4.0 (3.5-5.1) mmol/L Chloride 101 107 (98-107) mmol/L Carbon Dioxide 24 23 (22-30) mmol/L BUN 7 L 6 L (9-20) mg/dL Creatinine 0.72 0.72 (0.66-1.25) mg/dL Glucose 86 105 H (74-99) mg/dL Calcium 8.7 8.6 (8.4-10.2) mg/dL AST 39 35 (17-59) U/L ALT 22 20 (4-49) U/L Alkaline Phosphatase 78 78 (38-126) U/L Total Protein 7.5 7.1 (6.3-8.2) g/dL Albumin 4.0 3.7 (3.5-5.0) g/dL Current Medications Generic Name Dose Route Start Last Admin Trade Name Freq PRN Reason Stop Dose Admin Acetaminophen 650 mg 05/07/24 04:38 Acetaminophen Tab 325 Mg Tab PO Q6HR PRN Fever and/ or Pain Aspirin 325 mg 05/07/24 09:00 Aspirin 325 Mg Tab PO DAILY [facility] Atorvastatin Calcium 80 mg 05/07/24 01:45 05/07/24 01:54 Atorvastatin 80 Mg Tab PO 80 mg HS JUSTIN Administration Cholecalciferol 125 mcg 05/07/24 09:00 Cholecalciferol 125 Mcg (5000 Iu) Tablet PO DAILY [facility] Enoxaparin Sodium 40 mg 05/07/24 09:00 Enoxaparin 40 Mg/0.4 Ml Syringe SQ DAILY [facility] Lorazepam 0.5 mg 05/06/24 20:29 Lorazepam 0.5 Mg Tab PO Q4HR PRN Ciwa 4 To 5 Lorazepam 1 mg 05/06/24 20:29 Lorazepam 1 Mg Tab PO Q4HR PRN Ciwa 6 To 7 Lorazepam 2 mg 05/06/24 20:29 Lorazepam 1 Mg Tab PO Q2HR PRN Ciwa 10 or greater Lorazepam 2 mg 05/06/24 20:29 Lorazepam 1 Mg Tab PO Q3HR PRN Ciwa 8 To 9 Nitroglycerin 0.4 mg 05/06/24 20:27 Nitroglycerin Sl Tabs 0.4 Mg Tab SUBLINGUAL Q5M PRN Chest Pain Nitroglycerin 1 inch 05/07/24 00:00 05/07/24 05:52 Nitroglycerin Oint 1 Inch/Gm Packet TOPICAL Not Given Q6HR JUSTIN Sertraline HCl 100 mg 05/07/24 09:00 Sertraline 100 Mg Tab PO DAILY JUSTIN Intake and Output 05/06/24 05/07/24 05/07/24 22:59 06:59 14:59 Intake Total 0 Balance 0 Intake: Oral 0 Other: Voiding Method Toilet # Voids 2 Weight 99.79 kg 99.79 kg 05/06/24 19:11 05/07/24 01:10
[2024-05-07] MEDS: ENOXAPARIN 60 MG/0.6 ML SYRINGE SQ STA (11:26)
[2024-05-07] MEDS: KETOROLAC 15 MG/ML 1 ML VIAL IVP PRN (13:26)
--- NOTE | 2024-05-07 14:21 | CA ---
Lexiscan Nuclear Stress Test Report Name: Ryan Askew Exam Date: 05/07/2024 11:45 Exam Location: [facility] Stress Ht (in): 75 Wt (lb): 220 BSA: 2.29 Ordering Phys: Anum Villanueva Referring Phys: DEBBIE Technologist: Santiago Orellana Age: 58 Gender: M : 1965 Procedure CPT: Indications: Reflex order-Stress test ICD-10 Codes: Patient History: CHEST PAIN, DIFFICULTY IN BREATHING, PALPITATIONS, HYPERCHOLESTEROLEMIA, CURRENT SMOKER Medications: Meds past 24 hrs: Pretest Chest Pain: STRESS TEST Lexiscan Protocol Exercise Duration (min:sec): 02:[address] Depressions (mm): Angina Score: Gee Score: Resting HR (bpm): 68 Peak HR (bpm): 115 Resting BP (mmHg): 130 / 78 Peak BP (mmHg): 139 / 74 MPHR: 163 Target HR: 139 % MPHR: 71 METS: 1.0 Total Dose: Peak Dose: Atropine: Double Product: 34471 BP Response: Stress Termination: INFUSION COMPLETE Stress Symptoms: NO SYMPTOMS Stress Summary: ECG ANALYSIS Resting ECG: Stress ECG: CONCLUSIONS At baseline EKG showed normal sinus rhythm, normal axis, right bundle branch block with no significant ST or T wave abnormalities. Patient recieved IV infusion of Lexiscan 0.4mg and at peak infusion EKG showed no significant change from baseline. Conclusions: 1. Normal EKG response to Lexiscan infusion 2. Nuclear imaging to be reported separately. Dr. Lion Reddy DO (Electronically Signed) Final Date: 07 May 2024 14:21
--- NOTE | 2024-05-07 14:22 | CA ---
Transthoracic Echo Report Name: Ryan Askew Age: 58 Gender: M : 1965 Exam Date: 05/07/2024 12:34 Exam Location: [facility] Echo Ht (in): 75 Wt (lb): 220 Ordering Physician: Anum Villanueva Attending/Referring Phys: [id number], Kay Garden Implement Mechanic Selena Dueñas, [place] Procedure CPT: Indications: Chest Pain Cardiac Hx: Technical Quality: Good Contrast 1: Total Dose (mL): Contrast 2: Total Dose (mL): MEASUREMENTS (Male / Female) Normal Values 2D ECHO LV Diastolic Diameter PLAX 5.4 cm 4.2 - 5.9 / 3.9 - 5.3 cm LV Systolic Diameter PLAX 3.3 cm IVS Diastolic Thickness 1.3 cm 0.6 - 1.0 / 0.6 - 0.9 cm LVPW Diastolic Thickness 1.5 cm 0.6 - 1.0 / 0.6 - 0.9 cm LV Relative Wall Thickness 0.5 RV Internal Dim ED PLAX 2.5 cm LA Systolic Diameter LX 4.0 cm 3.0 - 4.0 / 2.7 - 3.8 cm LV Diastolic Volume MOD BP 69.5 cm??? 67 - 155 / 56 - 104 cm??? LV Systolic Volume MOD BP 27.3 cm??? 22 - 58 / 19 - 49 cm??? LV Ejection Fraction MOD BP 60.7 % >= 55 % LV Cardiac Index MOD BP 1459.5 cm???/min???m??? LV Diastolic Volume MOD 4C 82.1 cm??? LV Systolic Volume MOD 4C 33.5 cm??? LV Ejection Fraction MOD 4C 59.2 % LV Cardiac Index MOD 4C 1680.3 cm???/min???m??? LV Diastolic Length 4C 7.2 cm LV Systolic Length 4C 5.5 cm LV Diastolic Volume MOD 2C 54.3 cm??? LV Systolic Volume MOD 2C 19.6 cm??? LV Ejection Fraction MOD 2C 63.9 % LV Cardiac Index MOD 2C 1201.1 cm???/min???m??? LV Diastolic Length 2C 6.6 cm LV Systolic Length 2C 6.4 cm LA Volume 79.1 cm??? 18 - 58 / 22 - 52 cm??? LA Volume Index 34.2 cm???/m??? 16 - 28 cm???/m??? M-MODE Aortic Root Diameter MM 4.2 cm LA Systolic Diameter MM 3.5 cm LA Ao Ratio MM 0.8 AV Cusp Separation MM 2.5 cm DOPPLER MV Area PHT 1.9 cm??? Mitral E Point Velocity 59.6 cm/s Mitral A Point Velocity 51.2 cm/s Mitral E to A Ratio 1.2 MV Deceleration Time 402.0 ms TR Peak Velocity 198.8 cm/s TR Peak Gradient 15.8 mmHg FINDINGS Left Ventricle Left ventricular ejection fraction is estimated at 55-60%. Mildly increased septal wall thickness. Left ventricular cavity size normal. No obvious regional wall motion abnormalities. Right Ventricle Normal right ventricular size and function. Right ventricular systolic pressure within normal limits. Right Atrium Mild right atrial dilatation. Left Atrium Moderately increased left atrial volume. Mildly increased left atrial area. Mitral Valve Structurally normal mitral valve. Mild mitral regurgitation. No mitral stenosis. Aortic Valve Trileaflet aortic valve. No aortic stenosis. No aortic regurgitation. Tricuspid Valve Structurally normal tricuspid valve. No tricuspid stenosis. Trace to mild tricuspid regurgitation. Pulmonic Valve Structurally normal pulmonic valve. No pulmonic stenosis. Trace pulmonic regurgitation. Pericardium No pericardial or pleural effusion. Aorta Mild aortic dilatation at the level of the sinuses of valsalva (root) 4.2cm. CONCLUSIONS Left ventricular ejection fraction 55-60% Mildly increased left ventricular wall thickness Mild mitral regurgitation Trace to mild tricuspid regurgitation No pericardial effusion Previewed by: Dr. Lion Reddy DO (Electronically Signed) Final Date: 07 May 2024 14:22
[2024-05-07 15:18] VITALS: BMI 27.5
[2024-05-07] MEDS: FOLIC ACID 1 MG TAB PO SCH (15:48)
[2024-05-07] MEDS: THIAMINE 100 MG/ML 2 ML VIAL IM STA (15:48)
[2024-05-07] MEDS ORDERED: MORPHINE SULFATE 4 MG/ML SYRINGE IV PRN (16:29)
--- NOTE | 2024-05-07 16:31 | P.PN ---
Subjective Progress Note Date: 05/07/24 Hospital course: Patient is a 58-year-old male with a past medical history of throat/esophageal cancer, daily alcohol use/abuse, nicotine dependence, cocaine use, and daily cannabinoid use. He presented to the emergency department on 05/06/24 secondary to reports of chest pain. Upon arrival to our facility, patient underwent evaluation in the emergency department. Vital signs upon arrival show blood pressure 120/76, heart rate 90, respiratory rate 17, temp 98.7 F, and SpO2 100% on room air. EKG was completed showing normal sinus rhythm at 74 bpm with a right bundle branch block upon personal review and interpretation. Chest x-ray completed negative for acute cardiopulmonary process. Labs completed and reviewed. EKG showing microcytic anemia with hemoglobin of 11.3, MCV 76.3, and MCH of 24.6. BMP unremarkable. Blood glucose 86. Magnesium was low at 1.4. Liver profile normal findings. Troponin was negative at less than 0.012. Serum alcohol level was slightly elevated at 127. Influenza A, influenza B, RSV, and COVID PCR were negative. Patient was admitted under services with consultation to cardiology. Physical exam: Patient seen and fully evaluated at bedside this morning. Currently reports mild chest pain remains to midsternal chest. He denies having any palpitations or shortness of breath. He also reports sore throat from cancer pain. Vital signs reviewed and stable. General: Nontoxic, no distress and appears stated age. Derm: Skin warm and dry, normal coloration for ethnicity. Head: Atraumatic, normocephalic and symmetric. Eyes: EOM's intact, no lid lag, and anicteric sclera Mouth: no lip lesions, mucus membranes moist Cardiovascular: regular rate and rhythm with normal S1S2, no murmur, positive posterior tibial pulses bilaterally, and cap refill < 2 seconds. Lungs: Respirations even, regular, and unlabored on room air. Lungs CTA bilaterally, no rhonchi, no rales, no wheezing, and no accessory muscle usage. Abdominal: soft, nontender to palpation, no guarding, no appreciable organomegaly Ext: ROM intact. No gross muscle atrophy, no edema, no contractures Neuro: Speech clear, face symmetrical and CN II-XII grossly intact with no noted focal neuro deficits Psych: Alert and oriented to person, place, time, and situation. Appropriate and pleasant affect. Assessment and Plan of Care: Chest pain, acute coronary event ruled out -Cardiology following, discussed plan of care with cardiac PIT AND AUXILIARIES SUPERVISOR and staff respiratory therapist at bedside patient to undergo Lexiscan stress test later today along with CTA of chest. -Telemetry monitoring -Troponins were trended all negative at less than 0.012 x 3 draws. -Aspirin 81 mg daily, atorvastatin 80 mg nightly, -Lipid profile with a.m. labs. -Echocardiogram Alcohol abuse, pending withdrawal Alcohol intoxication upon arrival Polysubstance abuse with marijuana and cocaine Nicotine dependence -Order placed for monitoring of CIWA scores and patient to be medicated with Ativan 0.5 mg every 4 hours as needed for CIWA score of 4-5, Ativan 1 mg every 4 hours for CIWA score of 6-7, Ativan 2 mg every 3 hours CIWA score of 8-9, and Ativan 2 mg every 2 hours forr CIWA score of 10 or greater. -Thiamine 100 mg daily, and Multivitamin daily, and Folate 1 mg daily -Seizure, fall, aspiration, and elopement precautions in place. -Continued close monitoring of electrolytes and replace as needed. -Telemetry monitoring. Esophageal cancer -Diagnosed January 2024. Patient to continue to follow with Dr. Adelso Fernandez [place] upon discharge. -Symptomatic care and pain management. Anxiety Schizoaffective disorder Bipolar disorder -Continue daily medication regimen with sertraline 100 mg daily. Data and imaging reviewed: -Vital signs reviewed. Blood pressure 113/73, heart rate 100, respiratory rate 17, temp 99.1 F, and SpO2 of 99% on room air. -Labs reviewed. BMP unremarkable. Blood glucose 106. Liver profile normal findings. Troponins trended overnight all negative at less than 0.012. CODE STATUS: Full code DVT prophylaxis: Lovenox Anticipated discharge date: Pending clinical course Anticipated discharge place: Home Patient was seen independently by Nurse Pracitioner. This document was prepared using [employer] dictation software. Please allow for errors in linux kernel developer, while rare they do occur. Zay Enriquez PIT AND AUXILIARIES SUPERVISOR rendered care for this patient independently, reviewed the findings and plan as documented in the note above and agree with plan. I did not physically speak with or examine the patient on this date. Objective - Vital Signs Vital signs: Vital Signs Temp 99.1 F 05/07/24 07:00 Pulse 100 05/07/24 07:00 Resp 17 05/07/24 07:00 BP 113/73 05/07/24 07:00 Pulse Ox 92 L 05/07/24 08:16 FiO2 Intake & Output 05/06/24 05/07/24 05/07/24 18:59 06:59 18:59 Intake Total 0 Balance 0 Weight 99.79 kg 99.79 kg Intake: Oral 0 Other: Voiding Method Toilet # Voids 2 - Labs CBC & Chem 7: 05/06/24 19:11 05/07/24 01:10 Labs: Abnormal Lab Results - Last 24 Hours (Table) 05/06/24 05/06/24 05/07/24 Range/Units 19:11 19:11 01:10 Hgb 11.3 L (13.0-17.5) gm/dL Hct 35.1 L (39.0-53.0) % MCV 76.3 L (80.0-100.0) fL MCH 24.6 L (25.0-35.0) pg BUN 7 L 6 L (9-20) mg/dL Glucose 105 H (74-99) mg/dL Magnesium 1.4 L (1.6-2.3) mg/dL Transferrin 190.0 L (204.0-354.0) mg/dL Ferritin 334.0 H (22.0-322.0) ng/mL HDL Cholesterol 68.00 H (40.00-60.00) mg/dL
[2024-05-07] MEDS: MULTIVITAMINS, THERA 1 EACH TAB PO SCH (17:27)
[2024-05-07] MEDS: Phenol 1.4% Sore Throat Spray Bottle MUCOUS MEM PRN (17:29)
--- NOTE | 2024-05-07 18:31 | NM ---
EXAMINATION TYPE: NM stress lexiscan cardiolite DATE OF EXAM: 05/07/2024 COMPARISON: NONE CLINICAL INDICATION: Male, 58 years old with history of CP; TECHNIQUE: After the intravenous administration of 10.6 mCi Tc 99m Sestamibi - Cardiolite resting SP ECT images acquired 60 minutes post injection. The patient received 0.4mg Lexiscan, 25.6 mCi Tc 99m Sestamibi - Stress images obtained 120 minutes p ost injection FINDINGS: Review of stress and rest SPECT images suggest some focal apical reversibility. No other distinct per fusion abnormality. However, TID is increased at 1.23. Gated analysis shows normal wall motion with an estimated left ventricular ejection fraction of 53 %. IMPRESSION: 1. Suggestion of some apical reversibility. 2. In addition, the transient ischemic dilatation ratio is increased at 1.23. This can be seen in the setting of multivessel, global inducible ischemia. Further EKG and clinical correlation recommended . 3. Estimated LVEF borderline at 53%. [facility], , 05/07/2024 6:29 PM
[2024-05-07] MEDS: ENOXAPARIN 100 MG/ML SYRINGE SQ SCH (21:27)
[2024-05-07] MEDS: LORazepam 0.5 MG TAB PO PRN (21:40)
--- NOTE | 2024-05-08 05:20 | CT ---
EXAMINATION TYPE: CT angio chest DATE OF EXAM: 05/07/2024 COMPARISON: Prior CT 2017 HISTORY: Chest pain, r/o PE. Pt uncooperative in positioning, unable to get apices of lungs in images CT DLP: 309.9 mGycm. Automated Exposure Control for Dose Reduction was Utilized. CONTRAST: CTA scan of the thorax is performed with IV Contrast, patient injected with 100ml mL of Isovue 370, p ulmonary embolism protocol. MIP Images are created on CT scanner and reviewed. FINDINGS: Exam is suboptimal due to patient noncooperation, the entire Apices are not included. LUNGS: The visualized lungs are grossly clear, there is no concerning parenchymal mass or focal conso lidation identified. There is no pleural effusion or pneumothorax seen. The tracheobronchial tree is patent. There are central calcified right lung nodules or benign granulomas noted consistent with old granulomatous disease. MEDIASTINUM: Suboptimal study with most dense contrast in the SVC but no convincing CT evidence for a cute pulmonary embolism. Slight enhancement of the aorta without aneurysm or dissection. There is a 4 vessel origins from aortic arch which is normal variant. No cardiomegaly or pericardial effusion. Co ronary artery calcification is noted. OTHER: Bilateral subareolar gynecomastia is seen. Scoliotic curvature is present. IMPRESSION: 1. Suboptimal study without acute pulmonary embolism. 2. No suspicious acute pulmonary process. [facility], , 05/08/2024 5:18 AM
[2024-05-08 07:14] VITALS: RESP 16
[2024-05-08] MEDS ORDERED: ALPRAZolam 0.25 MG TAB PO PRN (07:54)
[2024-05-08] MEDS ORDERED: ALPRAZolam 0.5 MG TAB PO PRN (07:54)
[2024-05-08] MEDS ORDERED: NITROGLYCERIN SL TABS 0.4 MG TAB SUBLINGUAL PRN (07:54)
[2024-05-08 08:49] LABS: Glucose,Whole Blood 131 mg/dL (70-110)
[2024-05-08] MEDS ORDERED: ASPIRIN 81 MG PO SCH (09:00)
--- NOTE | 2024-05-08 09:17 | P.PN ---
Subjective HISTORY OF PRESENT ILLNESS: This is a 58-year-old male with a past medical history significant for hyperlipidemia, depression, anxiety, bipolar disorder, schizophrenia, nicotine dependence, and alcohol abuse. Patient follows in the office with Dr. Rendon but has not been seen in the office since November 2021. We have been asked to see the patient in consultation for chest pain. Patient examined at the bedside. Patient states last night he was walking up the stairs when he began to feel dizzy and had chest pain. He states hes had this type of pain before but its been a long time. Denies fever or chills. Reports a mild cough. He reports having some shortness of breath. He states the pain continued until he called 911. He thinks the pain lasted about an hour. He states he was diagnosed with throat/tongue cancer recently and follows with a physician in [facility]. He states he is scheduled for an MRI and then a decision will be made regarding surgery versus chemo. DIAGNOSTICS: - EKG reveals sinus mechanism with right bundle branch block. - Chest xray negative for acute process - Laboratory data: WBC 8.1. Hemoglobin 11.3. Platelet count 166. Sodium 137. Potassium 4.0. BUN 6. Creatinine 0.72. Magnesium 1.4. Troponin negative x 3. - Current home cardiac medications include rosuvastatin 10 mg daily - Most recent echocardiogram obtained in November 2021 revealed normal EF, mild MR, mild TR - Patient underwent dobutamine stress echo in December 2019 which was negative for ischemia 05/08/2024 Patient examined this morning at the bedside. Patient currently denies shortness of breath. He reports some occasional chest tightness. He underwent chest CTA yesterday which was negative for pulmonary embolism. Lexiscan completed yesterday reveals some apical reversibility. Echocardiogram completed revealing ejection fraction 55 to 60%, mild MR, trace to mild TR. PHYSICAL EXAM: VITAL SIGNS: Reviewed. GENERAL: Well-developed in no acute distress. HEENT: Head is normocephalic. Pupils are equal, round. Sclerae anicteric. Mucous membranes of the mouth are moist. Neck supple. No JVD or thyromegaly LUNGS: Respirations even and unlabored. Lungs essentially clear to auscultation bilaterally. HEART: Regular rate and rhythm. S1 and S2 heard. ABDOMEN: Soft. Nondistended. Nontender. EXTREMITIES: Normal range of motion. No clubbing or cyanosis. Peripheral pulses intact. No lower extremity edema NEUROLOGIC: Awake and alert. Oriented x 3. ASSESSMENT: Chest pain, troponin negative x 3, status post Lexiscan stress test revealing apical reversibility Acute alcohol intoxication, serum alcohol 127 on admission Hypomagnesemia Hyperlipidemia Throat/tongue cancer, follows in [facility], details unknown Depression Anxiety Bipolar disorder Schizophrenia Nicotine dependence History of alcohol abuse PLAN: Discontinue therapeutic Lovenox. Decrease dosage to 40 mg daily. Continue current cardiac medications Smoking cessation encouraged. Patient to be referred to [place] quit line upon discharge Abstinence from alcohol recommended. Patient currently on CIWA scale Patient to undergo cardiac catheterization today with Dr. Rendon Further recommendations pending patient course Nurse practitioner note has been reviewed by physician. Signing provider agrees with the documented findings, assessment, and plan of care documented by INDUSTRIAL THERAPIST as a scribe. Objective - Vital Signs Vital signs: Vital Signs Temp 98.5 F 05/08/24 07:00 Pulse 83 05/08/24 07:00 Resp 16 05/08/24 07:00 BP 133/76 05/08/24 07:00 Pulse Ox 99 05/08/24 07:00 FiO2 Intake & Output 05/07/24 05/08/24 05/08/24 18:59 06:59 18:59 Intake Total 118 480 Balance 118 480 Weight 99.79 kg Intake: Oral 118 480 Other: Voiding Method Toilet Toilet # Voids 3 2 # Bowel Movements 1 - Labs CBC & Chem 7: 05/06/24 19:11 05/07/24 01:10 Labs: Abnormal Lab Results - Last 24 Hours (Table) 05/07/24 05/08/24 Range/Units 01:10 08:48 POC Glucose (mg/dL) 131 H (70-110) mg/dL Transferrin 190.0 L (204.0-354.0) mg/dL Ferritin 334.0 H (22.0-322.0) ng/mL HDL Cholesterol 68.00 H (40.00-60.00) mg/dL
[2024-05-08] MEDS: THIAMINE 100 MG TAB PO SCH (09:22)
[2024-05-08] MEDS: ENOXAPARIN 40 MG/0.4 ML SYRINGE SQ SCH (09:22)
[2024-05-08] MEDS: SODIUM CHLORIDE 0.9% 1,000 ML in EMPTY BAG 1 BAG IV SCH (09:22)
[2024-05-08] MEDS: ATORVASTATIN 80 MG TAB PO STA (09:22)
[2024-05-08] MEDS: ASPIRIN 325 MG TAB PO STA (09:22)
[2024-05-08 10:43] LABS: HGB 11.2 g/dL (13.0-17.0); MCH 24.2 pg (27.0-32.0); MCV 75.6 FL (80.0-97.0); Mean Platelet Volume 12.4 FL (9.5-12.2); NRBC Per 100 WBC 0 X 10*3/uL (0.00-0.01); Platelet Count 169 X 10*3/uL (140-440); RBC 4.63 X 10*6/uL (4.40-5.60); RDW 13.8 % (11.5-14.5); WBC 6.72 X 10*3/uL (4.50-10.00)
[2024-05-08 11:26] LABS: ALT 20 U/L (10-49); AST 30 U/L (14-35); Albumin 3.8 g/dL (3.8-4.9); Albumin/Globulin Ratio 1.12 Ratio (1.60-3.17); Alkaline Phosphatase 83 U/L (41-126); BUN/Creat Ratio 16.75 Ratio (12.00-20.00); Blood Urea Nitrogen 13.4 mg/dL (9.0-27.0); Calcium 9.2 mg/dL (8.7-10.3); Carbon Dioxide 20.4 mmol/L (21.6-31.8); Chloride 104 mmol/L (96-109); Globulin 3.4 g/dL (1.6-3.3); Glucose 96 mg/dL (70-110); Magnesium 1.8 mg/dL (1.5-2.4); Potassium 4.6 mmol/L (3.5-5.5); Sodium 137 mmol/L (135-145); Total Bilirubin 0.4 mg/dL (0.3-1.2); Total Protein 7.2 g/dL (6.2-8.2)
[2024-05-08] MEDS: IV FLUID CONTINUATION 1,000 ML IV ONE (11:53)
[2024-05-08] MEDS: LIDOCAINE 1% INJ 10MG/ML (20 ML MDV) SQ ONE (12:40)
[2024-05-08] MEDS: MIDAZOLAM 2 MG/2 ML VIAL IVP ONE (12:41)
[2024-05-08] MEDS: fentaNYL (PF) 50 MCG/ML 2 ML AMP IVP ONE (12:41)
[2024-05-08] MEDS: VERAPAMIL SYRINGE (5 MG/10 ML) INTRAARTER ONE (12:41)
[2024-05-08] MEDS: HEPARIN SODIUM 1,000 UN/ML (10ML VL) IVP ONE (12:44)
[2024-05-08] MEDS: IOPAMIDOL-370 100ML BTL INJ ONE (12:49)
[2024-05-08] MEDS ORDERED: RX INFO: IV CONTRAST WAS GIVEN 1 EACH MISC MISCELLANE PRN (13:07)
--- NOTE | 2024-05-08 13:12 | P.CARDCATH ---
Date of Procedure: 05/08/24 Description of Procedure: Cardiac Catheterization: The patient is a 58-year-old male with a known history of hyperlipidemia, chronic tobacco use who presented with symptoms of chest comfort. He had no evidence of enzymatic changes but he had an abnormal MPI. Recommendations were made regarding cardiac catheterization, the risks and the complications were discussed with the patient who is in full understanding and agreement. Procedure Description: Patient was brought to catheter finisher and inspector in fasting semi-sedated state after receiving Fentanyl and Benadryl achieiving moderate conscious sedated state. Using Xylocaine Anesthesia and modified Seldinger technique, a 6-[place] sheath was introduced in the right radial artery . Subsequently, selective coronary angiography was performed using a 5-[place] 3.5 bend Luis catheter. Multiple views of the coronary artery including hemiaxial views were obtained. The 5 [place] pigtail catheter was used to cross the aortic valve and LVEDP was calculated. Following that, catheter and sheath were removed. Hemostasis was obtained with deployment of vascular band . There was no immediate complication. Patient was returned to room in stable condition. Of note, the patient received a total of 5000 units of intravenous heparin as well as intra-arterial verapamil. Findings: Fluoroscopy: Calcifications of the LAD was noted Left main: This is a very large vessel, almost aneurysmal trifurcating to LAD, left circumflex and ramus intermedius, left main has no obstructive disease. LAD: This is a large size vessel, giving rise to a diagonal branch proximally. The LAD reaches to the apical inferior segment. The LAD and its branches have no obstructive disease. Left circumflex: This is a large nondominant vessel, giving rise to 2 obtuse marginal branch that have no obstructive disease RCA: This is a large dominant vessel, tortuous in the proximal segment. Has mild plaque of 10% in the midsegment. The rest of the vessel has no high-grade stenosis. Ramus intermedius: This is a large size vessel, reaching to the apical lateral wall. The ramus intermedius has no obstructive disease Left Ventriculogram: Not performed Hemodynamics: There was no gradient across aortic valve, LVEDP was 6-8 mmHg Conclusion: 1. Calcification in the LAD 2. Mild intimal plaque in the RCA 3. Low LVEDP 4. Right dominance Recommendations: At this time I see no evidence of significant obstructive disease. I have recommended to continue medical therapy with aggressive coronary risks modification and smoking cessation. The findings and the recommendations were discussed with the patient and the family and they were in full understanding and agreement. Duration of sedation is 20 minutes.
[2024-05-08 13:14] VITALS: TEMP 97.9
[2024-05-08] MEDS: SODIUM CHLORIDE 0.9% 1,000 ML IV SCH (13:25)
[2024-05-08 15:10] LABS: African American GFR (CKD) >90 (>60 ml/min/1.73 sqM); Anion Gap 4 mmol/L; Blood Urea Nitrogen 12 mg/dL (9-20); Calcium 7.9 mg/dL (8.4-10.2); Carbon Dioxide 22 mmol/L (22-30); Chloride 110 mmol/L (98-107); Glucose 118 mg/dL (74-99); Magnesium 1.5 mg/dL (1.6-2.3); Non-African American GFR(CKD) >90 (>60 ml/min/1.73 sqM); Potassium 3.7 mmol/L (3.5-5.1); Sodium 136 mmol/L (137-145)
[2024-05-08] MEDS: MAGNESIUM SULFATE-D5W PMX 1 GM in DEXTROSE/WATER 1 100ML.BAG IVPB SCH (15:53)
[2024-05-08 17:30] VITALS: BP 122/75; PULSE 70
--- NOTE | 2024-05-08 18:21 | P.DS ---
Providers Date of admission: 05/06/24 20:30 Attending physician: Lisandra Coyne MD Consults: 05/06/24 20:28 Consult Physician Urgent Consulting Provider: [facility] Consult Reason/Comments: Chest pain Do you want consulting provider notified?: Yes 05/08/24 13:03 Consult Physician Routine Consulting Provider: Patrice James Consult Reason/Comments: esophageal cancer Do you want consulting provider notified?: Yes 05/08/24 13:04 Consult Physician Routine Consulting Provider: Delilah Marin Consult Reason/Comments: esophageal cancer Do you want consulting provider notified?: Yes Primary care physician: [facility] Hospital Course: Discharge Diagnosis: Chest pain, coronary event ruled out Alcohol abuse, pending withdrawal Alcohol intoxication upon arrival Polysubstance abuse with marijuana and cocaine Esophageal cancer Anxiety Schizoaffective disorder Bipolar disorder Hospital Course: Patient is a 58-year-old male with a past medical history of throat/esophageal cancer, daily alcohol use/abuse, nicotine dependence, cocaine use, and daily cannabinoid use. He presented to the emergency department on 05/06/24 secondary to reports of chest pain. Upon arrival to our facility, patient underwent evaluation in the emergency department. Vital signs upon arrival show blood pressure 120/76, heart rate 90, respiratory rate 17, temp 98.7 F, and SpO2 100% on room air. EKG was completed showing normal sinus rhythm at 74 bpm with a right bundle branch block upon personal review and interpretation. Chest x-ray completed negative for acute cardiopulmonary process. Labs completed and reviewed. EKG showing microcytic anemia with hemoglobin of 11.3, MCV 76.3, and MCH of 24.6. BMP unremarkable. Blood glucose 86. Magnesium was low at 1.4. Liver profile normal findings. Troponin was negative at less than 0.012. Serum alcohol level was slightly elevated at 127. Influenza A, influenza B, RSV, and COVID PCR were negative. Patient was admitted under services with consultation to cardiology. Noted all negative at less than 0.012 x 3 draws. Patient was taken for stress test which showed normal EKG response to Lexiscan infusion, however Ada scan reported suggestion of some apical reversibility in addition the transient ischemic dilation ratio was increased at 1.23 and this is reported to be seen in the setting of multivessel global inducible ischemia. CTA chest was completed negative for pulmonary emboli. Patient was then taken for cardiac catheterization which revealed calcification of the LAD and mild intimal plaque in the RCA with no evidence of significant obstructive disease. Cardiology clearing patient from their perspective for discharge. Patient was also evaluated by radiation oncologist and patient is scheduled for open MRI on Saturday. Patient reports he feels ready to go home and requesting discharge. He is medically stable for discharge at this time. Patient to follow-up outpatient with PCP in 1 to 2 days, fire engine pump operator in 1 week, and scheduled for open MRI on Saturday. Patient again educated on the importance and encouraged to follow-up with radiation oncology and oncology for treatment of his recently diagnosed esophageal cancer. Physical exam: Vital signs reviewed and stable. General: Nontoxic, no distress and appears stated age. Derm: Skin warm and dry, normal coloration for ethnicity. Head: Atraumatic, normocephalic and symmetric. Eyes: EOM's intact, no lid lag, and anicteric sclera Mouth: no lip lesions, mucus membranes moist Cardiovascular: regular rate and rhythm with normal S1S2, no murmur, positive posterior tibial pulses bilaterally, and cap refill < 2 seconds. Lungs: Respirations even, regular, and unlabored on room air. Lungs CTA bilaterally, no rhonchi, no rales, no wheezing, and no accessory muscle usage. Abdominal: soft, nontender to palpation, no guarding, no appreciable organomegaly Ext: ROM intact. No gross muscle atrophy, no edema, no contractures Neuro: Speech clear, face symmetrical and CN II-XII grossly intact with no noted focal neuro deficits Psych: Alert and oriented to person, place, time, and situation. Appropriate and pleasant affect. A total of 33 minutes of time were spent preparing this complex discharge summary. Pt was discharged on 05/08/2024 at 6:13 PM. Patient was seen independently by Nurse Practitioner. This document was prepared using [employer] dictation software. Please allow for errors in haulpak driver while rare they do occur. Zay Enriquez NP rendered care for this patient independently, reviewed the findings and plan as documented in the note above. I did not physically speak with or examine the patient on this date. Patient Condition at Discharge: Stable Plan - Discharge Summary Discharge Rx Participant: Yes New Discharge Prescriptions: Continue Ferrous Sulfate [Iron (65 MG Elemental)] 325 mg PO DAILY Cholecalciferol (Vitamin D3) [Vitamin D3 (5000 Iu)] 125 mcg PO DAILY Sertraline [Zoloft] 100 mg PO DAILY Rosuvastatin [Crestor] 10 mg PO DAILY Discharge Medication List Ferrous Sulfate [Iron (65 MG Elemental)] 325 mg PO DAILY 10/31/19 [History] Cholecalciferol (Vitamin D3) [Vitamin D3 (5000 Iu)] 125 mcg PO DAILY 11/29/20 [History] Rosuvastatin [Crestor] 10 mg PO DAILY 05/06/24 [History] Sertraline [Zoloft] 100 mg PO DAILY 05/06/24 [History] Follow up Appointment(s)/Referral(s): Lion Dash DO [STAFF PHYSICIAN] - 1 Week [facility] [Primary Care Provider] - 1-2 days Patient Instructions/Handouts: After Radial Heart Catheterization (GEN) Activity/Diet/Wound Care/Special Instructions: DO NOT SUBMERGE RIGHT WRIST IN WATER; NO SOAKING IN TUBS, DISHES, ETC FOR 3 DAYS NO DRIVING FOR 3 DAYS YOU MAY REMOVE DRESSING TOMORROW AND LEAVE PUNCTURE OPEN TO AIR NO FLEXING OR BENDING WRIST FOR 5 DAYS NO LIFTING GREATER THAN 5lbs FOR 5 DAYS IF YOU NOTICE ANY BLEEDING, SWELLING, INCREASED PAIN OR DRAINAGE OF FLUID GO TO THE NEAREST ER, DO NOT DRIVE YOURSELF FOLLOW UP IN THE OFFICE WITH DR. DASH IN ONE WEEK Recommend avoiding any and all alcohol use and cocaine use. It is important to follow-up outpatient with radiation oncology and oncologist for treatment of your recently diagnosed esophageal cancer. You are scheduled for open MRI on Saturday. Also recommend smoking cessation. Discharge/Stand Alone Forms: AA Meetings [facility], AA Meetings [facility], [facility], Who Do I Call?, Community Resources, Outpatient Counseling, Inp Substance Abuse Facilities Discharge Disposition: HOME SELF-CARE
[2024-05-09 04:14] LABS: % Iron Saturation 23.14 (15.00-50.00); Iron 59 UG/DL (65-175); Total Iron Binding Capacity 255 UG/DL (228-460)
[2024-05-09] MEDS ORDERED: HEPARIN SODIUM,PORCINE 10,000 UNIT in SODIUM CHLORIDE 0.9% 1,000 ML IRRIGATION PRN (07:00)
[2024-05-09] MEDS ORDERED: HEPARIN SODIUM,PORCINE (1 ML) 2,500 UNIT in SODIUM CHLORIDE 0.9% 250 ML IRRIGATION PRN (07:00)
[2024-05-09] MEDS ORDERED: ASPIRIN 81 MG PO SCH (09:00)
--- NOTE | 2024-05-09 10:33 | P.CONS ---
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 The lesion is in the relatively posterior oral cavity, borderline between oropharynx. We have attempted to have the patient undergo an MRI to dictate treatment. He was hospitalized on 05/06/24 secondary to chest- pain. The patient presented on 05/06/2024 to the ER complaining of chest tightness. A CTA of the chest was unremarkable. He also underwent a CT of the neck on May 07 revealing heterogeneous soft tissue fullness involving the left base of tongue, with extension into the vallecula, posterior pharynx and abutting the mandible. The patient had a cardiac workup with catheterization. He did not require any stenting. At the time of my visit, the patient reports his chest pain has resolved. He is still having some left-sided oral tongue pain. He states he is still able to eat, but it is painful at times. Review of Systems Constitutional: Denies chills, Denies fever Eyes: denies blurred vision Ears, nose, mouth and throat: Reports as per HPI Respiratory: Denies cough Gastrointestinal: Denies abdominal pain Integumentary: Denies rash Neurological: Denies aphasia, Denies ataxia Psychiatric: Denies confusion Past Medical History Past Medical History: Cancer, Chest Pain / Angina Additional Past Medical History / Comment(s): hernia, inguinal/umb, dizzyness when laying down or standing too quickly. throat cancer diagnosed january 2024 History of Any Multi-Drug Resistant Organisms: None Reported Past Surgical History: Hernia Repair, Orthopedic Surgery Additional Past Surgical History / Comment(s): 05-03-16 robotic assisted lap lt inguinal hernia repair, right foot Past Anesthesia/Blood Transfusion Reactions: No Reported Reaction Past Psychological History: Anxiety, Bipolar, Depression, Schizophrenia Smoking Status: Current every day smoker Past Alcohol Use History: Daily Past Drug Use History: None Reported - Past Family History Mother Family Medical History: Cancer Additional Family Medical History / Comment(s): bronchitis Father Family Medical History: No Reported History Medications and Allergies Home Medications Medication Instructions Recorded Confirmed Type Ferrous Sulfate [Iron (65 MG 325 mg PO DAILY 10/31/19 05/06/24 History Elemental)] Cholecalciferol (Vitamin D3) 125 mcg PO DAILY 11/29/20 05/06/24 History [Vitamin D3 (5000 Iu)] Rosuvastatin [Crestor] 10 mg PO DAILY 05/06/24 05/06/24 History Sertraline [Zoloft] 100 mg PO DAILY 05/06/24 05/06/24 History Allergies Allergy/AdvReac Type Severity Reaction Status Date / Time haloperidol [From Haldol] Allergy Anaphylaxis Verified 05/06/24 20:04 Physical Exam Vitals: Vital Signs Temp Pulse BP BP Pulse Ox 05/08/24 16:55 70 122/75 100 05/08/24 15:55 89 119/77 99 05/08/24 14:55 85 123/79 100 05/08/24 14:25 63 108/69 99 05/08/24 13:55 62 112/71 99 05/08/24 13:40 60 114/74 99 05/08/24 13:25 78 120/83 99 05/08/24 13:14 97.9 F 69 113/69 99 Intake and Output 05/08/24 05/09/24 05/09/24 22:59 06:59 14:59 Intake Total 118 Balance 118 Intake: Oral 118 - Constitutional General appearance: no acute distress - EENT Eyes: EOMI, PERRLA ENT: no normal oropharynx (asymmetry of left posterior tongue, bulging compared to right. ) - Neck Neck: no lymphadenopathy - Respiratory Respiratory: bilateral: CTA - Cardiovascular Rhythm: regular - Gastrointestinal General gastrointestinal: no distended, no tenderness - Integumentary Integumentary: no cellulitis - Neurologic Neurologic: CNII-XII intact - Musculoskeletal Musculoskeletal: gait normal - Psychiatric Psychiatric: A&O x's 3, appropriate affect Results CBC & Chem 7: 05/08/24 06:04 05/08/24 14:17 Labs: Abnormal Lab Results - Last 24 Hours (Table) 05/08/24 05/08/24 05/08/24 Range/Units 06:04 06:04 14:17 Hgb 11.2 L (13.0-17.0) g/dL Hct 35.0 L (39.6-50.0) % MCV 75.6 L (80.0-97.0) FL MCH 24.2 L (27.0-32.0) pg MPV 12.4 H (9.5-12.2) FL Sodium 136 L (137-145) mmol/L Chloride 110 H (98-107) mmol/L Carbon Dioxide 20.4 L (21.6-31.8) mmol/L Anion Gap 12.60 H (4.00-12.00) mmol/L Creatinine 0.62 L (0.66-1.25) mg/dL Glucose 118 H (74-99) mg/dL Calcium 7.9 L (8.4-10.2) mg/dL Magnesium 1.5 L (1.6-2.3) mg/dL Iron (65-175) UG/DL Transferrin (204.0-354.0) mg/dL Ferritin (22.0-322.0) ng/mL Globulin 3.4 H (1.6-3.3) g/dL Albumin/Globulin Ratio 1.12 L (1.60-3.17) Ratio 05/08/24 Range/Units 14:17 Hgb (13.0-17.0) g/dL Hct (39.6-50.0) % MCV (80.0-97.0) FL MCH (27.0-32.0) pg MPV (9.5-12.2) FL Sodium (137-145) mmol/L Chloride (98-107) mmol/L Carbon Dioxide (21.6-31.8) mmol/L Anion Gap (4.00-12.00) mmol/L Creatinine (0.66-1.25) mg/dL Glucose (74-99) mg/dL Calcium (8.4-10.2) mg/dL Magnesium (1.6-2.3) mg/dL Iron 59 L (65-175) UG/DL Transferrin 182.0 L (204.0-354.0) mg/dL Ferritin 383.0 H (22.0-322.0) ng/mL Globulin (1.6-3.3) g/dL Albumin/Globulin Ratio (1.60-3.17) Ratio CT scan - chest: report reviewed, image reviewed CT Scan - head: report reviewed, image reviewed Assessment and Plan Assessment: The patient is a 58-year-old male with a history of a recently diagnosed clinical stage II (cT2, cN0, 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 The lesion is in the relatively posterior oral cavity, borderline between oropharynx. He has not started any treatment - has missed appointments and scans. Now hospitalized with chest-pain. Plan: 1. Chest pain: Cardiology eval was negative; symptoms resolved. 2. Squamous cell carcinoma of the tongue: the patient was diagnosed with this malignancy in late January. Unfortunately, he has missed appointments several times including with medical oncology and for requested imaging. He was also briefly incarcerated for drug use. The patient was scheduled to undergo an MRI of the head and neck help determine treatment approach. Unfortunately, he was unable to tolerate this due to claustrophobia. Therefore he has been scheduled with open MRI on Saturday. Unfortunately, the patient's numerous delays are in part due to missing appointments. We will attempt to coordinate outpatient follow-up after his MRI. Time with Patient: Greater than 30
--- NOTE | 2024-05-09 13:13 | P.CONS ---
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 He has been seen by ENT and rad onc. He was referred to our clinic and had f/u scheduled with Dr. Castro to establish care but no showed/canceled last 2 appts. Upon review of rad onc note, it appears patient has missed appointments several times and for requested imaging. He was scheduled to undergo an MRI of the head and neck help determine treatment approach but was unable to tolerate this due to claustrophobia. He has been scheduled with open MRI on Saturday. Patient presented to emergency room with complaints of chest pain. Troponins negative. CTA chest was negative for acute pulmonary embolism with no acute suspicious pulmonary processes. CT soft tissue neck was also obtained showing asymmetric heterogeneous soft tissue fullness extending from the left base of the tongue, extending superiorly from the left anterior margin of the vallecula along the left lateral aspect of the oropharynx. Mild effacement of the left lateral aspect of the oropharynx. Cardiology has been following patient. Patient underwent cardiac cath on 05/06/2024 with no evidence of significant obstructive disease noted. Chest pain now resolved. CBC showing mild microcytic anemia with hemoglobin 11.2, MCV 75.9. WBC 6.7, platelets 169,000. Iron studies showing iron saturation 27.4%, ferritin 334. Review of Systems 10 point ROS is negative except as stated in the HPI Past Medical History Past Medical History: Cancer, Chest Pain / Angina Additional Past Medical History / Comment(s): hernia, inguinal/umb, dizzyness when laying down or standing too quickly. throat cancer diagnosed january 2024 History of Any Multi-Drug Resistant Organisms: None Reported Past Surgical History: Hernia Repair, Orthopedic Surgery Additional Past Surgical History / Comment(s): 05-03-16 robotic assisted lap lt inguinal hernia repair, right foot Past Anesthesia/Blood Transfusion Reactions: No Reported Reaction Past Psychological History: Anxiety, Bipolar, Depression, Schizophrenia Smoking Status: Current every day smoker Past Alcohol Use History: Daily Past Drug Use History: None Reported - Past Family History Mother Family Medical History: Cancer Additional Family Medical History / Comment(s): bronchitis Father Family Medical History: No Reported History Medications and Allergies Home Medications Medication Instructions Recorded Confirmed Type Ferrous Sulfate [Iron (65 MG 325 mg PO DAILY 10/31/19 05/06/24 History Elemental)] Cholecalciferol (Vitamin D3) 125 mcg PO DAILY 11/29/20 05/06/24 History [Vitamin D3 (5000 Iu)] Rosuvastatin [Crestor] 10 mg PO DAILY 05/06/24 05/06/24 History Sertraline [Zoloft] 100 mg PO DAILY 05/06/24 05/06/24 History Allergies Allergy/AdvReac Type Severity Reaction Status Date / Time haloperidol [From Haldol] Allergy Anaphylaxis Verified 05/06/24 20:04 Physical Exam Vitals: Vital Signs Temp Pulse Pulse Resp BP Pulse Ox 05/08/24 13:14 97.9 F 69 113/69 99 05/08/24 07:00 98.5 F 83 16 133/76 99 05/08/24 01:17 98.5 F 74 18 122/78 99 05/07/24 19:57 98.5 F 94 18 125/79 100 05/07/24 14:49 98.6 F 88 18 154/81 98 Intake and Output 05/07/24 05/08/24 05/08/24 22:59 06:59 14:59 Intake Total 480 318 Balance 480 318 Intake: IV 200 Oral 480 118 Other: Voiding Method Toilet # Voids 1 2 2 # Bowel Movements 1 Weight 99.79 kg - Constitutional General appearance: no acute distress - EENT poor dentition Eyes: anicteric sclerae, EOMI ENT: hearing grossly normal - Neck Neck: no lymphadenopathy - Respiratory Respiratory: bilateral: CTA - Cardiovascular Rhythm: regular - Gastrointestinal General gastrointestinal: soft, no tenderness - Integumentary Integumentary: no cyanotic, no jaundiced - Psychiatric Psychiatric: A&O x's 3 Results CBC & Chem 7: 05/08/24 06:04 05/08/24 14:17 Labs: Abnormal Lab Results - Last 24 Hours (Table) 05/08/24 05/08/24 05/08/24 Range/Units 06:04 06:04 08:48 Hgb 11.2 L (13.0-17.0) g/dL Hct 35.0 L (39.6-50.0) % MCV 75.6 L (80.0-97.0) FL MCH 24.2 L (27.0-32.0) pg MPV 12.4 H (9.5-12.2) FL Carbon Dioxide 20.4 L (21.6-31.8) mmol/L Anion Gap 12.60 H (4.00-12.00) mmol/L POC Glucose (mg/dL) 131 H (70-110) mg/dL Globulin 3.4 H (1.6-3.3) g/dL Albumin/Globulin Ratio 1.12 L (1.60-3.17) Ratio Comments: CT neck reviewed CT scan - chest: report reviewed Assessment and Plan (1) Cancer of head and neck Status: Acute Code(s): C76.0 - MALIGNANT NEOPLASM OF HEAD, FACE AND NECK SNOMED Code(s): 778416825 (2) Chest pain Status: Acute Code(s): R07.9 - CHEST PAIN, UNSPECIFIED SNOMED Code(s): 64515655 (3) Microcytic anemia Status: Acute Priority: Medium Code(s): D50.9 - IRON DEFICIENCY ANEMIA, UNSPECIFIED SNOMED Code(s): 378146530 Plan: Squamous cell carcinoma of the tongue: -Recently diagnosed clinical stage II (cT2, cN0, 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 He has been seen by ENT and rad onc. He was referred to our clinic and had f/u scheduled with Dr. Castro to establish care but no showed/canceled last 2 appts. Upon review of rad onc note, it appears patient has missed appointments several times and for requested imaging. He was scheduled to undergo an MRI of the head and neck help determine treatment approach but was unable to tolerate this due to claustrophobia. He has been scheduled with open MRI on Saturday. -Will reschedule clinic f/u with Dr. Eloisa Marin if pt is amendable -Pt will need continued f/u with ENT and rad onc Chest pain: Presented with chest pain -Cardiac workup negative. Chest pain now resolved -Defer management to cardiology and admitting teams Microcytic anemia: -CBC showing microcytic anemia with hemoglobin 11.2, MCV 75.9. WBC 6.7, platelets 169,000. Iron studies showing iron saturation 27.4%, ferritin 334. Would expect iron studies to be lower with noted degree of microcytosis. Will repeat iron studies, and obtain Vitamin B12, MMA, folate and thyroid studies -Continue to monitor CBC Doctor attests: I performed a history and physical examination of this patient, developed impression and plan of care. Discussed with dictator. I agree with dictators note, documented as a scribe.
== END 2024-05-08 18:45 | disposition home or self-care (01) | DRG 191 ==
LOC: EC 18:29 → 6NMEDSUR 20:29 → OBSVTOIN 20:30 → 6NMEDSUR 20:46
PROVIDERS: ADMIT Internal Medicine; ATTEND Internal Medicine
PROC: B2111ZZ Fluoroscopy of Multiple Coronary Arteries using Low Osmolar Contrast (ICD-10-PCS; 2024-05-08)
PROC: 4A023N7 Measurement of Cardiac Sampling and Pressure, Left Heart, Percutaneous Approach (ICD-10-PCS; principal; 2024-05-08 09:35)
DX: I25.119 Atherosclerotic heart disease of native coronary artery with unspecified angina pectoris (principal); F25.9 Schizoaffective disorder, unspecified; C15.9 Malignant neoplasm of esophagus, unspecified; C02.9 Malignant neoplasm of tongue, unspecified; F10.129 Alcohol abuse with intoxication, unspecified; F14.10 Cocaine abuse, uncomplicated; F31.9 Bipolar disorder, unspecified; E78.5 Hyperlipidemia, unspecified; D50.9 Iron deficiency anemia, unspecified; F12.10 Cannabis abuse, uncomplicated; F17.210 Nicotine dependence, cigarettes, uncomplicated; F41.9 Anxiety disorder, unspecified; E83.42 Hypomagnesemia; Y90.6 Blood alcohol level of 120-199 mg/100 ml; Z79.899 Other long term (current) drug therapy; Z59.00 Homelessness unspecified
CPT/HCPCS: 36415; 70491; 71046; 71275; 78452; 80048; 80053; 80061; 80320; 82607; 82728; 83540; 83550; 83735; 84443; 84484; 85025; 85027; 85610; 85730; 87636; 93017; 93306; 94760; 96360; 96361; 99285

== ENCOUNTER 2024-05-28 15:56 | Emergency (ER) | payer OTHER ==
--- NOTE | 2024-05-28 18:25 | ED ---
Skin/Abscess/FB HPI - General Source: patient, RN notes reviewed Mode of arrival: ambulatory Limitations: no limitations <Evette Andersenna - Last Filed: 05/28/24 18:24> - General Source: patient, RN notes reviewed Mode of arrival: ambulatory Limitations: no limitations <Edie George - Last Filed: 05/29/24 04:48> - General Chief complaint: Skin/Abscess/Foreign Body Stated complaint: rib pain Time Seen by Provider: 05/28/24 18:24 - History of Present Illness Initial comments: Quick [id number] male presenting for pilonidal cyst x 1 week. Patient reports it is painful and actively draining. Also reports fever, chills, loss of appetite. (Malika Andersen) This is a 58-year-old male who presents to the emergency department for concerns of a pilonidal cyst. States that he first noticed a lump at the top of the gluteal cleft about a week ago. This is getting increasingly painful. His girlfriend tried to open this up and started getting some drainage out of it. States that he has since continued to have increasing pain. Additionally, he reports a cough over the last 2 days that is productive with associated shortness of breath and left-sided rib pain. 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 Not on any chemotherapy. (Edie George) - Related Data Home Medications Medication Instructions Recorded Confirmed Ferrous Sulfate [Iron (65 MG 325 mg PO DAILY 10/31/19 05/06/24 Elemental)] Cholecalciferol (Vitamin D3) 125 mcg PO DAILY 11/29/20 05/06/24 [Vitamin D3 (5000 Iu)] Rosuvastatin [Crestor] 10 mg PO DAILY 05/06/24 05/06/24 Sertraline [Zoloft] 100 mg PO DAILY 05/06/24 05/06/24 Previous Rx's Medication Instructions Recorded Benzonatate [Tessalon Perle] 200 mg PO Q8H PRN #30 capsule 05/28/24 Ketorolac [Toradol] 10 mg PO Q6HR PRN #15 tab 05/28/24 Oseltamivir [Tamiflu] 75 mg PO BID 5 Days #10 cap 05/28/24 clindamycin HCL 300 mg PO QID 10 Days #40 capsule 05/28/24 Allergies Allergy/AdvReac Type Severity Reaction Status Date / Time haloperidol [From Haldol] Allergy Anaphylaxis Verified 05/28/24 16:21 Review of Systems ROS Other: All systems not noted in ROS Statement are negative. <Malika Andersen - Last Filed: 05/28/24 18:24> ROS Other: All systems not noted in ROS Statement are negative. <Edie George - Last Filed: 05/29/24 04:48> ROS Statement: Those systems with pertinent positive or pertinent negative responses have been documented in the HPI. Past Medical History Past Medical History: Chest Pain / Angina Additional Past Medical History / Comment(s): hernia, inguinal/umb, dizzyness when laying down or standing too quickly History of Any Multi-Drug Resistant Organisms: None Reported Past Surgical History: Hernia Repair, Orthopedic Surgery Additional Past Surgical History / Comment(s): 05-03-16 robotic assisted lap lt inguinal hernia repair, right foot Past Anesthesia/Blood Transfusion Reactions: No Reported Reaction Past Psychological History: Anxiety, Bipolar, Depression, Schizophrenia Smoking Status: Current every day smoker Past Alcohol Use History: Daily Past Drug Use History: None Reported - Past Family History Mother Family Medical History: Cancer Additional Family Medical History / Comment(s): bronchitis Father Family Medical History: No Reported History <Malika Andersen - Last Filed: 05/28/24 18:24> General Exam Limitations: no limitations <Malika Andersen - Last Filed: 05/28/24 18:24> Limitations: no limitations General appearance: alert, in no apparent distress Head exam: Present: atraumatic, normocephalic, normal inspection Respiratory exam: Present: normal lung sounds bilaterally. Absent: respiratory distress, wheezes, rales, rhonchi, stridor Cardiovascular Exam: Present: regular rate, normal rhythm, normal heart sounds. Absent: systolic murmur, diastolic murmur, rubs, gallop, clicks Extremities exam: Present: other (Open area with tracking at the top of the gluteal cleft. No active drainage.) Neurological exam: Present: alert, oriented X3, CN II-XII intact Psychiatric exam: Present: normal affect, normal mood <Edie George - Last Filed: 05/29/24 04:48> - General Exam Comments Initial Comments: Visual Physical Exam Vital signs reviewed General: Well-appearing, nontoxic, no acute distress. Head: Normocephalic, atraumatic Eyes: PERRLA, EOMI ENT: Airway patent Chest: Nonlabored breathing Skin: No visual rash, normal skin tone Neuro: Alert and oriented 3 Musculoskeletal: No gross abnormalities (Malika Andersen) Course Vital Signs 05/28/24 05/28/24 05/28/24 16:16 19:23 21:00 Temperature 100.2 F H 101.7 F H 99.5 F Pulse Rate 90 75 64 Respiratory 22 18 18 Rate Blood Pressure 129/79 131/82 135/69 O2 Sat by Pulse 100 98 96 Oximetry 05/28/24 22:04 Temperature 99.1 F Pulse Rate 70 Respiratory 18 Rate Blood Pressure 124/63 O2 Sat by Pulse 98 Oximetry Medical Decision Making <Malika Andersen - Last Filed: 05/28/24 18:24> - Lab Data Result diagrams: 05/28/24 19:03 05/28/24 19:03 - Radiology Data Radiology results: report reviewed, image reviewed <Edie George - Last Filed: 05/29/24 04:48> - Medical Decision Making I completed the quick note portion of this chart signed Mlaika Andersen PA-C (Malika Andersen) This is a 58-year-old male who presents to the emergency department for concerns of a pilonidal cyst and shortness of breath. Was pt. sent in by a medical professional or institution? @ -No Did you speak to anyone other than the patient for history? @ -No Did you review nursing and triage notes? @ -Yes, and I agree, it is accurate with regards to the patient's symptoms. Were old charts reviewed? @ -No Differential Diagnosis? @ -Differential Dyspnea: Coronary syndrome, arrhythmia, tamponade, asthma, COPD, pulmonary embolism, pneumonia, pneumothorax, pulmonary effusion, anaphylaxis, diabetic ketoacidosis, flailed chest, pulmonary contusion, diaphragmatic rupture, anemia, neuromuscular, this is not meant to be an all-inclusive list. EKG interpreted by me (3pts min.)? @ -EKG interpreted by me demonstrating the following: Sinus rhythm. Ventricular rate 73 bpm, MO interval 136 ms, QRS duration 127 ms, QTc 426 ms. X-rays interpreted by me (1pt min.)? @ -Not obtained CT interpreted by me (1pt min.)? @ -CTA of the chest obtained. My interpretation identifies no evidence of a pulmonary embolus. U/S interpreted by me (1pt. min.)? @ -CT scan of the abdomen and pelvis obtained. My interpretation identifies no evidence of a perianal abscess. What testing was considered but not performed? (CT, X-rays, U/S, labs)? Why? @ -None What meds were considered but not given? Why? @ -None Did you discuss the management of the patient with other professionals? @ -No Did you reconcile home meds? @ -No Was smoking cessation discussed for >3mins.? @ -No Was critical care preformed (if so, how long)? @ -No Were there social determinants of health that impacted care today? How? (Homelessness, low income, unemployed, alcoholism, drug addiction, transportation, low edu. Level, literacy, decrease access to med. care, [facility], rehab)? @ -No Was there de-escalation of care discussed even if they declined? (Discuss DNR or withdrawal of care, Hospice)? @ -No What co-morbidities impacted this encounter? (DM, HTN, Smoking, COPD, CAD, Cancer, CVA, Hep., AIDS, mental health diagnosis, sleep apnea, morbid obesity)? @ -Cancer Was patient admitted / discharged? @ -Discharged. Lab work demonstrates mild hypomagnesemia with a magnesium of 1.3. 800mg of magnesium oxide administered. CRP mildly elevated at 1.8. Patient positive for influenza A. Urinalysis negative for signs of infection. Given that he was experiencing some tachycardia with the shortness of breath and rib cage pain, CTA of the chest was obtained. No pulmonary embolus was identified. CT scan of the abdomen and pelvis obtained for further evaluation of potential pilonidal cyst. He was found to have skin thickening and soft tissue inflammatory changes in the gluteal cleft without evidence of abscess or large sinus tract. Findings reviewed with the patient. He was febrile in the emergency department, which could have been related to influenza, skin infection near the rectum, or both. Symptoms were managed in the emergency department. Given his medical history we will treat him with Tamiflu and clindamycin to cover for both influenza and developing rectal infection/pilonidal cyst. Information for follow-up with general surgery provided. Tessalon Perles and Toradol prescribed for further management of the cough and pain as well. Patient discharged home in stable condition. Case discussed with ED attending Dr. Conroy. Undiagnosed new problem with uncertain prognosis? @ -None Drug Therapy requiring intensive monitoring for toxicity (Heparin, Nitro, Insulin, Cardizem)? @ -None Were any procedures done? @ -None Diagnosis/symptom? @ -Pilonidal cyst, influenza A Acute, or Chronic, or Acute on Chronic? @ -Acute Uncomplicated (without systemic symptoms) or Complicated (systemic symptoms)? @ -Uncomplicated Side effects of treatment? @ -None Exacerbation, Progression, or Severe Exacerbation] @ -Not applicable Poses a threat to life or bodily function? @ -Unlikely (Edie George) - Lab Data Lab Results 05/28/24 05/28/24 05/28/24 Range/Units 19:03 19:03 19:03 WBC 5.6 (3.8-10.6) k/uL RBC 4.96 (4.30-5.90) m/uL Hgb 12.1 L (13.0-17.5) gm/dL Hct 38.9 L (39.0-53.0) % MCV 78.3 L (80.0-100.0) fL MCH 24.3 L (25.0-35.0) pg MCHC 31.0 (31.0-37.0) g/dL RDW 14.4 (11.5-15.5) % Plt Count 225 (150-450) k/uL MPV 7.6 Neutrophils % 57 % Lymphocytes % 26 % Monocytes % 12 % Eosinophils % 2 % Basophils % 1 % Neutrophils # 3.2 (1.3-7.7) k/uL Lymphocytes # 1.5 (1.0-4.8) k/uL Monocytes # 0.6 (0-1.0) k/uL Eosinophils # 0.1 (0-0.7) k/uL Basophils # 0.1 (0-0.2) k/uL Hypochromasia Slight PT (10.0-12.5) sec INR (<1.2) APTT (22.0-30.0) sec Sodium 135 L (137-145) mmol/L Potassium 3.7 (3.5-5.1) mmol/L Chloride 101 (98-107) mmol/L Carbon Dioxide 27 (22-30) mmol/L Anion Gap 7 mmol/L BUN 14 (9-20) mg/dL Creatinine 0.84 (0.66-1.25) mg/dL Est GFR (CKD-EPI)AfAm >90 (>60 ml/min/1.73 sqM) Est GFR (CKD-EPI)NonAf >90 (>60 ml/min/1.73 sqM) Glucose 97 (74-99) mg/dL Plasma Lactic Acid Ron 1.2 (0.7-2.0) mmol/L Calcium 9.2 (8.4-10.2) mg/dL Magnesium (1.6-2.3) mg/dL Total Bilirubin 0.2 (0.2-1.3) mg/dL AST 44 (17-59) U/L ALT 20 (4-49) U/L Alkaline Phosphatase 89 (38-126) U/L Troponin I (0.000-0.034) ng/mL C-Reactive Protein 1.8 H (<1.0) mg/dL Total Protein 8.5 H (6.3-8.2) g/dL Albumin 4.5 (3.5-5.0) g/dL Urine Color Urine Appearance (Clear) Urine pH (5.0-8.0) Ur Specific Baldwin (1.001-1.035) Urine Protein (Negative) Urine Glucose (UA) (Negative) Urine Ketones (Negative) Urine Blood (Negative) Urine Nitrite (Negative) Urine Bilirubin (Negative) Urine Urobilinogen (<2.0) mg/dL Ur Leukocyte Esterase (Negative) Influenza Type A (PCR) (Not Detectd) Influenza Type B (PCR) (Not Detectd) RSV (PCR) (Not Detectd) SARS-CoV-2 (PCR) (Not Detectd) 05/28/24 05/28/24 05/28/24 Range/Units 19:29 19:29 19:29 WBC (3.8-10.6) k/uL RBC (4.30-5.90) m/uL Hgb (13.0-17.5) gm/dL Hct (39.0-53.0) % MCV (80.0-100.0) fL MCH (25.0-35.0) pg MCHC (31.0-37.0) g/dL RDW (11.5-15.5) % Plt Count (150-450) k/uL MPV Neutrophils % % Lymphocytes % % Monocytes % % Eosinophils % % Basophils % % Neutrophils # (1.3-7.7) k/uL Lymphocytes # (1.0-4.8) k/uL Monocytes # (0-1.0) k/uL Eosinophils # (0-0.7) k/uL Basophils # (0-0.2) k/uL Hypochromasia PT 11.0 (10.0-12.5) sec INR 1.0 (<1.2) APTT 29.1 (22.0-30.0) sec Sodium (137-145) mmol/L Potassium (3.5-5.1) mmol/L Chloride (98-107) mmol/L Carbon Dioxide (22-30) mmol/L Anion Gap mmol/L BUN (9-20) mg/dL Creatinine (0.66-1.25) mg/dL Est GFR (CKD-EPI)AfAm (>60 ml/min/1.73 sqM) Est GFR (CKD-EPI)NonAf (>60 ml/min/1.73 sqM) Glucose (74-99) mg/dL Plasma Lactic Acid Ron (0.7-2.0) mmol/L Calcium (8.4-10.2) mg/dL Magnesium 1.3 L (1.6-2.3) mg/dL Total Bilirubin (0.2-1.3) mg/dL AST (17-59) U/L ALT (4-49) U/L Alkaline Phosphatase (38-126) U/L Troponin I <0.012 (0.000-0.034) ng/mL C-Reactive Protein (<1.0) mg/dL Total Protein (6.3-8.2) g/dL Albumin (3.5-5.0) g/dL Urine Color Urine Appearance (Clear) Urine pH (5.0-8.0) Ur Specific Baldwin (1.001-1.035) Urine Protein (Negative) Urine Glucose (UA) (Negative) Urine Ketones (Negative) Urine Blood (Negative) Urine Nitrite (Negative) Urine Bilirubin (Negative) Urine Urobilinogen (<2.0) mg/dL Ur Leukocyte Esterase (Negative) Influenza Type A (PCR) (Not Detectd) Influenza Type B (PCR) (Not Detectd) RSV (PCR) (Not Detectd) SARS-CoV-2 (PCR) (Not Detectd) 05/28/24 05/28/24 Range/Units 19:29 21:24 WBC (3.8-10.6) k/uL RBC (4.30-5.90) m/uL Hgb (13.0-17.5) gm/dL Hct (39.0-53.0) % MCV (80.0-100.0) fL MCH (25.0-35.0) pg MCHC (31.0-37.0) g/dL RDW (11.5-15.5) % Plt Count (150-450) k/uL MPV Neutrophils % % Lymphocytes % % Monocytes % % Eosinophils % % Basophils % % Neutrophils # (1.3-7.7) k/uL Lymphocytes # (1.0-4.8) k/uL Monocytes # (0-1.0) k/uL Eosinophils # (0-0.7) k/uL Basophils # (0-0.2) k/uL Hypochromasia PT (10.0-12.5) sec INR (<1.2) APTT (22.0-30.0) sec Sodium (137-145) mmol/L Potassium (3.5-5.1) mmol/L Chloride (98-107) mmol/L Carbon Dioxide (22-30) mmol/L Anion Gap mmol/L BUN (9-20) mg/dL Creatinine (0.66-1.25) mg/dL Est GFR (CKD-EPI)AfAm (>60 ml/min/1.73 sqM) Est GFR (CKD-EPI)NonAf (>60 ml/min/1.73 sqM) Glucose (74-99) mg/dL Plasma Lactic Acid Ron (0.7-2.0) mmol/L Calcium (8.4-10.2) mg/dL Magnesium (1.6-2.3) mg/dL Total Bilirubin (0.2-1.3) mg/dL AST (17-59) U/L ALT (4-49) U/L Alkaline Phosphatase (38-126) U/L Troponin I (0.000-0.034) ng/mL C-Reactive Protein (<1.0) mg/dL Total Protein (6.3-8.2) g/dL Albumin (3.5-5.0) g/dL Urine Color Colorless Urine Appearance Clear (Clear) Urine pH 6.5 (5.0-8.0) Ur Specific Baldwin >1.050 H (1.001-1.035) Urine Protein Negative (Negative) Urine Glucose (UA) Negative (Negative) Urine Ketones Negative (Negative) Urine Blood Negative (Negative) Urine Nitrite Negative (Negative) Urine Bilirubin Negative (Negative) Urine Urobilinogen <2.0 (<2.0) mg/dL Ur Leukocyte Esterase Negative (Negative) Influenza Type A (PCR) Detected A (Not Detectd) Influenza Type B (PCR) Not Detected (Not Detectd) RSV (PCR) Not Detected (Not Detectd) SARS-CoV-2 (PCR) Not Detected (Not Detectd) Disposition <Malika Andersen - Last Filed: 05/28/24 18:24> Is patient prescribed a controlled substance at d/c from ED?: No Time of Disposition: 21:27 <Edie George - Last Filed: 05/29/24 04:48> Clinical Impression: Pilonidal cyst, Influenza A Disposition: HOME SELF-CARE Instructions (If sedation given, give patient instructions): Pilonidal Cyst (ED), Influenza (ED) Additional Instructions: Return to the emergency department with any new, worsening, or concerning symptoms. Take the antibiotics as prescribed for 10 days. Take the Tamiflu twice daily for 5 days. Take the Toradol with Tylenol as needed for pain relief. If you choose to take the Toradol, do not take any other anti-inflammatories such as ibuprofen, take one or the other. Take the Tessalon Perles up to every 8 hours as needed for coughing. Contact the general surgeon listed below for a follow-up appointment regarding the pilonidal cyst. Follow up with your primary care provider in 1-2 days. Prescriptions: clindamycin HCL 300 mg PO QID 10 Days #40 capsule Oseltamivir [Tamiflu] 75 mg PO BID 5 Days #10 cap Benzonatate [Tessalon Perle] 200 mg PO Q8H PRN #30 capsule PRN Reason: Cough Ketorolac [Toradol] 10 mg PO Q6HR PRN #15 tab PRN Reason: Pain Referrals: [facility] [Primary Care Provider] - 1-2 days Burton Evans MD [STAFF PHYSICIAN] - 1-2 days
[2024-05-28 19:13] LABS: Basophils # (A) 0.1 k/uL (0-0.2); Basophils % (A) 1 %; Eosinophils # (A) 0.1 k/uL (0-0.7); Eosinophils % (A) 2 %; HCT 38.9 % (39.0-53.0); HGB 12.1 gm/dL (13.0-17.5); Hypochromasia Slight; Lymphocytes # (A) 1.5 k/uL (1.0-4.8); Lymphocytes % (A) 26 %; MCH 24.3 pg (25.0-35.0); MCV 78.3 fL (80.0-100.0); Mean Platelet Volume 7.6; Monocytes # (A) 0.6 k/uL (0-1.0); Monocytes % (A) 12 %; Neutrophils # (A) 3.2 k/uL (1.3-7.7); Neutrophils % (A) 57 %; Platelet Count 225 k/uL (150-450); RBC 4.96 m/uL (4.30-5.90); RDW 14.4 % (11.5-15.5); WBC 5.6 k/uL (3.8-10.6)
[2024-05-28 19:25] LABS: ALT 20 U/L (4-49); AST 44 U/L (17-59); African American GFR (CKD) >90 (>60 ml/min/1.73 sqM); Albumin 4.5 g/dL (3.5-5.0); Alkaline Phosphatase 89 U/L (38-126); Anion Gap 7 mmol/L; Blood Urea Nitrogen 14 mg/dL (9-20); C Reactive Protein 1.8 mg/dL (<1.0); Calcium 9.2 mg/dL (8.4-10.2); Carbon Dioxide 27 mmol/L (22-30); Chloride 101 mmol/L (98-107); Glucose 97 mg/dL (74-99); Non-African American GFR(CKD) >90 (>60 ml/min/1.73 sqM); Potassium 3.7 mmol/L (3.5-5.1); Sodium 135 mmol/L (137-145); Total Bilirubin 0.2 mg/dL (0.2-1.3); Total Protein 8.5 g/dL (6.3-8.2)
[2024-05-28] MEDS: ACETAMINOPHEN TAB 500 MG TAB PO STA (19:36)
[2024-05-28] MEDS: SODIUM CHLORIDE 0.9% 1,000 ML IV STA (19:37)
[2024-05-28] MEDS: KETOROLAC 15 MG/ML 1 ML VIAL IVP STA (19:39)
[2024-05-28] MEDS: MORPHINE SULFATE 4 MG/ML SYRINGE IVP STA (19:40)
[2024-05-28 19:47] VITALS: RESP 18
--- NOTE | 2024-05-28 20:04 | CT ---
EXAMINATION TYPE: CT chest angio for PE DATE OF EXAM: 05/28/2024 7:57 PM COMPARISON: 05/28/2024 CLINICAL INDICATION: Male, 58 years old with history of TYSON, cancer patient; TYSON. TECHNIQUE/CONTRAST: CTA scan of the thorax is performed with IV Contrast, patient injected with 100 ml mL of Isovue 370, MIP images are created and reviewed these are created on a separate workstation.. CT DLP: Combined DLP of 1236.7 mGycm, Automated exposure control for dose reduction was used. FINDINGS: Lungs/Pleura: No evidence of focal consolidation, pleural effusion or pneumothorax. Airway: Large airways are patent. Heart: Heart is within normal limits for size. Vasculature: There is no evidence for a filling defect within the pulmonary vasculature to suggest [place] pulmonary embolism. The pulmonary artery is of normal size. Mediastinum: No gross evidence of adenopathy. Partially calcified right perihilar lymph node. Musculoskeletal: No acute osseous abnormalities Soft Tissues/lymph nodes: Unremarkable. Lower neck: No significant findings. Upper Abdomen: No significant findings. IMPRESSION: No evidence of pulmonary embolism. [facility], , 05/28/2024 8:02 PM
--- NOTE | 2024-05-28 20:14 | CT ---
EXAMINATION TYPE: CT abdomen pelvis w con CT DLP: Combined DLP of 1236.7 mGycm, Automated exposure control for dose reduction was used. DATE OF EXAM: 05/28/2024 8:04 PM COMPARISON: CT abdomen 03/22/2016 CLINICAL INDICATION:Male, 58 years old with history of Perianal vs pilonidal cyst; Perianal vs piloni david cyst TECHNIQUE: Axial CT of the abdomen and pelvis. Sagittal and coronal reformats were created on a [employer] workstation. Contrast used:100 ml mL of Isovue 370 with IV Contrast, (none if empty) Oral contrast used: without Oral Contrast (none if empty) FINDINGS: LOWER CHEST: Unremarkable ABDOMEN LIVER: Unremarkable GALLBLADDER AND BILE DUCTS: Unremarkable. PANCREAS: Unremarkable. SPLEEN: Unremarkable. ADRENAL GLANDS: Unremarkable. KIDNEYS AND URETERS: No evidence of hydronephrosis or renal calculus. The ureters are unremarkable. PELVIS BLADDER: Unremarkable REPRODUCTIVE: Unremarkable. ABDOMEN & PELVIS STOMACH AND BOWEL: Stomach and duodenum are unremarkable. No evidence of bowel obstruction. PERITONEUM/RETROPERITONEUM: No evidence of pneumoperitoneum or free fluid. VASCULATURE: Mild atherosclerotic calcifications are present throughout the abdominal aorta and its b ranches. No evidence of aortic aneurysm. MUSCULOSKELETAL: No acute osseous abnormalities LYMPH NODES: No gross evidence for lymphadenopathy. SOFT TISSUE/ABDOMINAL WALL: There is subtle superficial soft tissue fat stranding inflammatory change s noted in the gluteal cleft. No definitive fluid collections or large sinus tracts are appreciated. IMPRESSION: 1. Skin thickening and soft tissue inflammatory change in the gluteal cleft without evidence of absce ss or large sinus tract. If concern for perianal fistula persist, a follow-up nonemergent MRI of the pelvis anal fistula protocol may be of benefit. 2. No acute intra-abdominal process. [facility], , 05/28/2024 8:11 PM
[2024-05-28 21:12] LABS: Partial Thromboplastin Time 29.1 sec (22.0-30.0)
[2024-05-28] MEDS: MAGNESIUM OXIDE 400 MG TAB PO STA ×2 (21:15)
[2024-05-28 21:52] LABS: Appearance,Urine Clear (Clear); Bilirubin,Urine Negative (Negative); Blood,Urine Negative (Negative); Color,Urine Colorless; Glucose,Urine (UA) Negative (Negative); Ketones,Urine Negative (Negative); Leukocyte Esterase,Urine Negative (Negative); Nitrite,Urine Negative (Negative); PH, Urine 6.5 (5.0-8.0); Protein,Urine Negative (Negative); Urobilinogen,Urine <2.0 mg/dL (<2.0)
[2024-05-28] MEDS: CLINDAMYCIN 150 MG/ML 4 ML VIAL IM STA (22:00)
[2024-05-28] MEDS: ACET/COD 300 MG/30 MG STARTER PACK 6 TAB BTL PO STA (22:00)
[2024-05-28 22:06] LABS: Specific Gravity,Urine >1.050 (1.001-1.035)
[2024-05-28 22:07] VITALS: BP 124/63; PULSE 70; TEMP 99.1
== END 2024-05-28 22:09 | disposition home or self-care (01) ==
LOC: EC 15:56
DX: L05.91 Pilonidal cyst without abscess (principal); J10.1 Influenza due to other identified influenza virus with other respiratory manifestations; F17.200 Nicotine dependence, unspecified, uncomplicated; Z88.8 Allergy status to other drugs, medicaments and biological substances
CPT/HCPCS: 36415; 93005; 80053; 83605; 83735; 84484; 85025; 85610; 85730; 86140; 81003; 87636; 71275; 74177; 99284; 96374; 96375; 96372; 96361; J2270; J1885; Q9967; J0736

== ENCOUNTER → 2024-05-28 | Outpatient (CLI) | payer OTHER ==
--- NOTE | 2024-05-28 18:49 | PE ---
EXAMINATION TYPE: PET CT fusion skull to thigh DATE OF EXAM: 05/28/2024 CLINICAL INDICATION:Male, 58 years old with history of C02.3 TONGUE CANCER; TECHNIQUE: Following the intravenous administration of 10.02 mCi of F-18 FDG, whole body images are performed from the skull base to the midthigh. Images are reviewed on the computer in the coronal, axial, and sagittal planes. Reconstructed rotating images are created on independent workstation and reviewed on the computer. A non-contrast CT is performed in conjunction with the PET scan. Glucose level 110 mg/dL CT DLP: 728.72 mGycm, Automated exposure control for dose reduction was used. COMPARISON: CT 05/07/2024, 05/06/2024, PET/CT None, MRI: None FINDINGS: Mediastinal SUV mean is 1.5. Hepatic parenchyma SUV mean is 2.1. SKULL BASE AND NECK: Asymmetric soft tissue fullness extending from the left base of the tongue and extending superiorly f rom the left anterior margin of the vallecula again. This demonstrates a maximum SUV of 9.7. Additional focus of radiotracer uptake within the right oral pharynx with a maximum SUV of 7.5 (image 23 out of 285 on axial FDG sequence). Bilateral nonenlarged jugular lymph nodes identified with a maximum SUV of 6.4 on the left. CHEST, MEDIASTINUM, AND HILAR REGION: Nonenlarged superior mediastinal lymph node with max SUV of 2.8. Nonenlarged right paratracheal lymph node with a maximum SUV of 3.6. Nonenlarged subcarinal lymph node with a maximum SUV of 3.4. Right hilar lymph node FDG activity with a maximum SUV of 4.4. Left hilar lymph node FDG activity with a maximum SUV of 3.6. ABDOMEN AND PELVIS: No suspicious radiotracer activity. MUSCULOSKELETAL STRUCTURES: No suspicious radiotracer activity. OTHER CT: Bilateral gynecomastia. Small coronary artery calcifications. Calcified right hilar lymph n odes. Mild atherosclerotic calcification of the aorta and its branches. Pelvic phleboliths. IMPRESSION: 1. Asymmetric soft tissue fullness within the left base of the tongue consistent with reported tongu e cancer. 2. Focal radiotracer uptake within the right oral pharynx which may represent additional site of dis ease. Direct visualization is recommended. 3. Bilateral jugular FDG avid lymph nodes which is most prominent on the left and concerning for met astasis. 4. Mildly FDG avid mediastinal and bilateral hilar nonenlarged lymph nodes which may represent metas tatic versus reactive from granulomatous disease. [facility], , 05/28/2024 6:47 PM
== END | disposition home or self-care (01) ==
LOC: RADPETMAIN 09:40
PROVIDERS: ATTEND Radiology Radiation Oncology
DX: C01 Malignant neoplasm of base of tongue (principal); C02.3 Malignant neoplasm of anterior two-thirds of tongue, part unspecified; F17.210 Nicotine dependence, cigarettes, uncomplicated; I70.0 Atherosclerosis of aorta
CPT/HCPCS: 78815; A9552

== ENCOUNTER → 2024-10-08 | Outpatient (CLI) | payer OTHER ==
--- NOTE | 2024-10-11 18:39 | PE ---
EXAMINATION TYPE: PET CT fusion skull to thigh DATE OF EXAM: 10/08/2024 CLINICAL INDICATION:Male, 59 years old with history of Tongue ca; TECHNIQUE: Following the intravenous administration of 10.32 mCi of F-18 FDG, whole body images are performed from the skull vertex to the midthigh. Images are reviewed on the computer in the coronal , axial, and sagittal planes. Reconstructed rotating images are created on independent workstation a nd reviewed on the computer. A non-contrast CT is performed in conjunction with the PET scan. Gluco se level 91 mg/dL CT DLP: 750.4 mGycm, Automated exposure control for dose reduction was used. COMPARISON: CT 08/11/2024, 07/11/2024, 05/28/2024, 05/07/2024, PET/CT 05/28/2024, MRI: None FINDINGS: Mediastinal SUV mean is 2.0. Hepatic parenchyma SUV mean is 2.5. SKULL BASE AND NECK: Regions of uptake identified within the bilateral cervical paravertebral musculature with left greate r than right. Likely related to inflammation. Similar appearance of slightly asymmetrical prominence of the left tongue base compared to the right with improvement in previously seen FDG activity demonstrating a maximum SUV now of 4. Previously 9.7 . CHEST, MEDIASTINUM, AND HILAR REGION: No suspicious radiotracer activity. ABDOMEN AND PELVIS: No suspicious radiotracer activity. MUSCULOSKELETAL STRUCTURES: No suspicious radiotracer activity. OTHER CT: Small coronary arterial calcification in the LAD. Right hilar calcified lymph nodes. Mild a therosclerotic calcification of the aorta and its branches. Multiple pelvic phleboliths. Degenerative changes of the pubic symphysis. IMPRESSION: Decreased FDG activity within known left tongue base mass indicating positive response to treatment. No other suspicious FDG activity above background levels to suggest active metastasis. [facility], , 10/11/2024 6:36 PM
== END | disposition home or self-care (01) ==
LOC: RADPETMAIN 10:51
PROVIDERS: ATTEND Radiology Radiation Oncology
DX: C01 Malignant neoplasm of base of tongue (principal); C02.3 Malignant neoplasm of anterior two-thirds of tongue, part unspecified; F17.210 Nicotine dependence, cigarettes, uncomplicated
CPT/HCPCS: 78815; A9552

== ENCOUNTER 2024-11-13 11:36 | Emergency (ER) | payer OTHER ==
[2024-11-13 11:45] VITALS: BP 97/64; PULSE 79; RESP 20; TEMP 98
--- NOTE | 2024-11-13 13:03 | ED ---
ENT HPI - General Chief complaint: ENT Stated complaint: Facial Swelling Time Seen by Provider: 11/13/24 12:50 Source: patient, RN notes reviewed Mode of arrival: ambulatory Limitations: no limitations - History of Present Illness Initial comments: This is a 59-year-old male who presents to the emergency department for neck pain and swelling. Patient states that he has noticed right-sided neck pain and swelling increasing over the last week. He has a history of throat cancer and follows with [facility] locally, however he is not currently undergoing any treatment. States that he usually has swelling on the left side of his face and neck, however the right side seems new. He has some discomfort and difficulty swallowing as well. He just relocated to the area and had previously been staying at a home in [facility]. They had him on antibiotics, however since he left that facility 4 days ago he was unable to continue them. - Related Data Home Medications Medication Instructions Recorded Confirmed Ferrous Sulfate [Iron (65 MG 325 mg PO DAILY 10/31/19 08/08/24 Elemental)] Cholecalciferol (Vitamin D3) 125 mcg PO DAILY 11/29/20 08/08/24 [Vitamin D3 (5000 Iu)] Rosuvastatin [Crestor] 10 mg PO DAILY 05/06/24 08/08/24 Sertraline [Zoloft] 100 mg PO DAILY 05/06/24 08/08/24 Albuterol Inhaler [Ventolin Hfa 1 puff INHALATION RT-Q4H PRN 07/11/24 08/08/24 Inhaler] HYDROcodone/APAP 5-325MG [[place] 1 tab PO Q8H PRN 07/11/24 08/08/24 5-325] Magnesium Oxide [Mag-Ox] 250 mg PO DAILY 07/11/24 08/08/24 Mirtazapine 30 mg PO HS 07/11/24 08/08/24 Multivitamins, Thera [Multivitamin 1 tab PO DAILY 07/11/24 08/08/24 (formulary)] OLANZapine [ZyPREXA] 2.5 mg PO HS 07/11/24 08/08/24 Omeprazole 20 mg PO DAILY 07/11/24 08/08/24 Ondansetron [Zofran] 4 mg PO Q4H PRN 07/11/24 08/08/24 Paliperidone IM [Invega Sustenna] 234 mg IM Q28D 07/11/24 08/08/24 Thiamine [Vitamin B-1] 100 mg PO DAILY 07/11/24 08/08/24 Previous Rx's Medication Instructions Recorded Acetaminophen Tab [Tylenol] 650 mg PO Q6HR PRN tab 07/15/24 Lidocaine Viscous 2% [Xylocaine 10 ml MUCOUS MEM Q6HR #280 ml 07/15/24 Viscous] Ascorbic Acid [Vitamin C] 500 mg PO W/LUNCH tab 08/27/24 Amoxic-Pot Clav 875-125Mg 1 tab PO Q12HR 7 Days #14 tab 11/13/24 [Augmentin 875-125] predniSONE 50 mg PO DAILY 5 Days #5 tab 11/13/24 Allergies Allergy/AdvReac Type Severity Reaction Status Date / Time haloperidol [From Haldol] Allergy Anaphylaxis Verified 11/13/24 11:45 Review of Systems ROS Statement: Those systems with pertinent positive or pertinent negative responses have been documented in the HPI. ROS Other: All systems not noted in ROS Statement are negative. Past Medical History Past Medical History: Cancer, Chest Pain / Angina Additional Past Medical History / Comment(s): hernia, inguinal/umb, dizzyness when laying down or standing too quickly, mouth cancer History of Any Multi-Drug Resistant Organisms: None Reported Past Surgical History: Hernia Repair, Orthopedic Surgery Additional Past Surgical History / Comment(s): 05-03-16 robotic assisted lap lt inguinal hernia repair, right foot Past Anesthesia/Blood Transfusion Reactions: No Reported Reaction Past Psychological History: Anxiety, Bipolar, Depression, Schizophrenia Smoking Status: Current every day smoker Past Alcohol Use History: Daily Past Drug Use History: None Reported - Past Family History Mother Family Medical History: Cancer Additional Family Medical History / Comment(s): bronchitis Father Family Medical History: No Reported History General Exam Limitations: no limitations General appearance: alert, in no apparent distress Head exam: Present: atraumatic, normocephalic, normal inspection Neck exam: Present: other (Mild submental fullness. No areas of tenderness or swelling to the face. No palpable dental abscess. No tongue elevation.) Respiratory exam: Present: normal lung sounds bilaterally. Absent: respiratory distress, wheezes, rales, rhonchi, stridor Cardiovascular Exam: Present: regular rate, normal rhythm Neurological exam: Present: alert, oriented X3, CN II-XII intact Psychiatric exam: Present: normal affect, normal mood Skin exam: Present: warm, dry, intact, normal color. Absent: rash Course Vital Signs 11/13/24 11:43 Temperature 98 F Pulse Rate 79 Respiratory 20 Rate Blood Pressure 97/64 O2 Sat by Pulse 100 Oximetry Medical Decision Making - Medical Decision Making I this is a 59-year-old male who presents to the emergency department for right sided neck pain and swelling. Was pt. sent in by a medical professional or institution? @ -No Did you speak to anyone other than the patient for history? @ -No Did you review nursing and triage notes? @ -Yes, and I agree, it is accurate with regards to the patient's symptoms. Were old charts reviewed? @ -No Differential Diagnosis? @ -Dental abscess, malignancy, Luis Fernando's angina, sialoadenitis, parotitis, sinusitis, this is not meant to be an all-inclusive list. EKG interpreted by me (3pts min.)? @ -Not obtained X-rays interpreted by me (1pt min.)? @ -Not obtained CT interpreted by me (1pt min.)? @ -CT scan of the soft tissue neck obtained. My interpretation identifies no abscess formation. U/S interpreted by me (1pt. min.)? @ -Not obtained What testing was considered but not performed? (CT, X-rays, U/S, labs)? Why? @ -None What meds were considered but not given? Why? @ -None Did you discuss the management of the patient with other professionals? @ -No Did you reconcile home meds? @ -No Was smoking cessation discussed for >3mins.? @ -No Was critical care preformed (if so, how long)? @ -No Were there social determinants of health that impacted care today? How? (Homelessness, low income, unemployed, alcoholism, drug addiction, transpo rtation, low edu. Level, literacy, decrease access to med. care, residential, rehab)? @ -No Was there de-escalation of care discussed even if they declined? (Discuss DNR or withdrawal of care, Hospice)? @ -No What co-morbidities impacted this encounter? (DM, HTN, Smoking, COPD, CAD, Cancer, CVA, Hep., AIDS, mental health diagnosis, sleep apnea, morbid obesity)? @ -Cancer Was patient admitted / discharged? @ -Discharged. Lab work unremarkable. Hemoglobin is stable when compared with prior values. He has no leukocytosis or elevation in inflammatory markers. CT scan of the soft tissue neck demonstrates no significant interval changes when compared with prior imaging. The cancer seems to be stable and there is no sign of abscess formation or other acute process. The cause of his presentation is not entirely clear. Given that he was prescribed antibiotics but could not finish them Augmentin was prescribed along with a 5-day course of prednisone to see if that helps with swelling. Advised he contact his oncologist and see if they can see him for a sooner follow-up appointment regarding his symptoms. Patient discharged home in stable condition. Case discussed with ED attending Dr. Decker. Return precautions reviewed in depth, the patient is instructed to return to the emergency department with any new, worsening, or concerning symptoms. Patient verbalized understanding. Undiagnosed new problem with uncertain prognosis? @ -None Drug Therapy requiring intensive monitoring for toxicity (Heparin, Nitro, Insulin, Cardizem)? @ -None Were any procedures done? @ -None Diagnosis/symptom? @ -Facial pain and swelling Acute, or Chronic, or Acute on Chronic? @ -Acute Uncomplicated (without systemic symptoms) or Complicated (systemic symptoms)? @ -Uncomplicated Side effects of treatment? @ -None Exacerbation, Progression, or Severe Exacerbation] @ -Not applicable Poses a threat to life or bodily function? @ -Unlikely - Lab Data Result diagrams: 11/13/24 12:51 11/13/24 12:51 Lab Results 11/13/24 11/13/24 11/13/24 Range/Units 12:51 12:51 12:51 WBC 4.63 (4.50-10.00) 10*3/uL RBC 3.56 L (4.40-5.60) 10*6/uL Hgb 8.7 L (13.0-17.0) g/dL Hct 26.9 L (39.6-50.0) % MCV 75.6 L (80.0-97.0) fL MCH 24.4 L (27.0-32.0) pg MCHC 32.3 (32.0-37.0) g/dL Plt Count 166 (140-440) 10*3/uL MPV 9.4 L (9.5-12.2) fL Immature Gran % (Auto) 0.2 % Neutrophils % (Manual) 57 % Lymphocytes % (Manual) 19 % Monocytes % (Manual) 4 % Eosinophils % (Manual) 20 % Immature Gran # 0.01 (0.00-0.04) 10*3/uL Neutrophils # (Manual) 2.64 (1.3-7.7) k/uL Lymphocytes # (Manual) 0.88 L (1.0-4.8) k/uL Monocytes # (Manual) 0.19 (0-1.0) k/uL Eosinophils # (Manual) 0.93 H (0-0.7) k/uL Nucleated RBCs 0 (0-0) /100 WBC Manual Slide Review Performed Sodium 138 (137-145) mmol/L Potassium 4.1 (3.5-5.1) mmol/L Chloride 105 (98-107) mmol/L Carbon Dioxide 25 (22-30) mmol/L Anion Gap 8 mmol/L BUN 11 (9-20) mg/dL Creatinine 0.78 (0.66-1.25) mg/dL Est GFR (CKD-EPI)AfAm >90 (>60 ml/min/1.73 sqM) Est GFR (CKD-EPI)NonAf >90 (>60 ml/min/1.73 sqM) Glucose 90 (74-99) mg/dL Plasma Lactic Acid Ron 1.4 (0.7-2.0) mmol/L Calcium 8.9 (8.4-10.2) mg/dL Total Bilirubin 0.2 (0.2-1.3) mg/dL AST 19 (17-59) U/L ALT 9 (4-49) U/L Alkaline Phosphatase 84 (38-126) U/L C-Reactive Protein <0.5 (<1.0) mg/dL Total Protein 7.4 (6.3-8.2) g/dL Albumin 4.1 (3.5-5.0) g/dL Amylase 72 (30-110) U/L Lipase 118 (23-300) U/L - Radiology Data Radiology results: report reviewed, image reviewed Disposition Clinical Impression: Facial swelling, History of throat cancer Disposition: HOME SELF-CARE Additional Instructions: Return to the emergency department with any new, worsening, or concerning symptoms. Take the antibiotic as prescribed for 7 days and the prednisone daily for 5 days. Contact your oncologist regarding your symptoms and see if they will schedule you for a sooner follow-up appointment. Follow-up with your prima ry care provider as well. Prescriptions: Amoxic-Pot Clav 875-125Mg [Augmentin 875-125] 1 tab PO Q12HR 7 Days #14 tab predniSONE 50 mg PO DAILY 5 Days #5 tab Is patient prescribed a controlled substance at d/c from ED?: No Referrals: None,Stated [REFERRING] - 1-2 days Time of Disposition: 16:25
[2024-11-13 14:00] LABS: HCT 26.9 % (39.6-50.0); HGB 8.7 g/dL (13.0-17.0); MCH 24.4 pg (27.0-32.0); MCHC 32.3 g/dL (32.0-37.0); MCV 75.6 fL (80.0-97.0); Mean Platelet Volume 9.4 fL (9.5-12.2); Platelet Count 166 10*3/uL (140-440); RBC 3.56 10*6/uL (4.40-5.60); RDW 13.6 % (11.5-14.5); WBC 4.63 10*3/uL (4.50-10.00)
[2024-11-13 14:21] LABS: ALT 9 U/L (4-49); AST 19 U/L (17-59); African American GFR (CKD) >90 (>60 ml/min/1.73 sqM); Albumin 4.1 g/dL (3.5-5.0); Alkaline Phosphatase 84 U/L (38-126); Amylase 72 U/L (30-110); Anion Gap 8 mmol/L; Blood Urea Nitrogen 11 mg/dL (9-20); Calcium 8.9 mg/dL (8.4-10.2); Carbon Dioxide 25 mmol/L (22-30); Chloride 105 mmol/L (98-107); Glucose 90 mg/dL (74-99); Non-African American GFR(CKD) >90 (>60 ml/min/1.73 sqM); Potassium 4.1 mmol/L (3.5-5.1); Sodium 138 mmol/L (137-145); Total Bilirubin 0.2 mg/dL (0.2-1.3); Total Protein 7.4 g/dL (6.3-8.2)
[2024-11-13 14:37] LABS: Eosinophils # (M) 0.93 k/uL (0-0.7); Lymphocytes # (M) 0.88 k/uL (1.0-4.8); Monocytes # (M) 0.19 k/uL (0-1.0); Neutrophils # (M) 2.64 k/uL (1.3-7.7); Neutrophils % (M) 57 %; Nucleated Red Blood Cells 0 /100 WBC (0-0); Total Cells Counted 100
[2024-11-13] MEDS: KETOROLAC 15 MG/ML 1 ML VIAL IVP STA (14:49)
[2024-11-13] MEDS: DEXAMETHASONE SOD PHOSPHATE 10 MG/ML 1 ML VIAL IVP STA (14:50)
[2024-11-13] MEDS: MORPHINE SULFATE 4 MG/ML SYRINGE IVP STA (14:53)
--- NOTE | 2024-11-13 15:55 | CT ---
EXAMINATION TYPE: CT soft tissue neck w con DATE OF EXAM: 11/13/2024 3:29 PM COMPARISON: 08/11/2024 CLINICAL INDICATION: Male, 59 years old with history of Right sided neck pain/swelling; PHH, THROAT C A EDEMA TECHNIQUE: CT scan of the neck is performed following with IV Contrast, patient injected with 100 ml mL of Isovu e 300. Axial images are obtained, coronal and sagittal reformatted images are reviewed. CT DLP: 369.[address] CTDI: mGy Automated exposure control for dose reduction was used. FINDINGS: Findings: The thyroid gland is not enlarged and there are no focal masses. The larynx including the thyroid, arytenoid, cricoid cartilages as well as the vocal cords are normal and symmetric without laryngeal mass. The known left tongue mass is not well-defined but there is no change in the fullness in the left ton noemí base consistent with the known malignancy. There is prominence in the right tongue base as well. As on the prior study, the soft palate and uvula appears prominent possibly secondary to edema or inf iltrating mass. The submandibular glands and parotid glands are normal and symmetric. The great vessels of the neck are normal. There is no adenopathy or abscess within the neck. Visualized osseous structures are intact. IMPRESSION: 1. No change in the diffuse poorly defined soft tissue mass and possibly edema involving the tongue b ase, soft palate and uvula. 2. No abscess or adenopathy. 3. No significant interval change compared to the study of 08/11/2024.. [facility], , 11/13/2024 3:52 PM
[2024-11-13 16:38] LABS: C Reactive Protein <0.5 mg/dL (<1.0); Lipase 118 U/L (23-300)
== END 2024-11-13 16:45 | disposition home or self-care (01) ==
LOC: EC 11:36
DX: R22.0 Localized swelling, mass and lump, head (principal); Z85.818 Personal history of malignant neoplasm of other sites of lip, oral cavity, and pharynx; F17.200 Nicotine dependence, unspecified, uncomplicated; Z88.8 Allergy status to other drugs, medicaments and biological substances
CPT/HCPCS: 36415; 80053; 82150; 83605; 83690; 85025; 86140; 70491; 99284; 96374; 96375; J1100; J1885; Q9967

== ENCOUNTER 2024-12-05 11:35 | Emergency (ER) | payer OTHER ==
[2024-12-05 11:42] VITALS: TEMP 97.8
--- NOTE | 2024-12-05 13:15 | ED ---
ENT HPI - General Chief complaint: ENT Stated complaint: Swollen neck Time Seen by Provider: 12/05/24 12:18 Source: patient, RN notes reviewed Mode of arrival: ambulatory Limitations: no limitations - History of Present Illness Initial comments: This is a 59-year-old male who presents to the emergency department for swelling underneath the chin. Patient has a history of throat cancer but is not currently undergoing any treatment. As far as he knows everything is stable and he does follow with [facility]. States that he has been dealing with intermittent swelling underneath his chin. This is not painful. Denies any difficulty eating, drinking, speaking, or swallowing. He has been evaluated here for this in the past. States that it seems to get better with antibiotics and steroids and requests trying this again. Denies any fevers or chills. - Related Data Home Medications Medication Instructions Recorded Confirmed Ferrous Sulfate [Iron (65 MG 325 mg PO DAILY 10/31/19 08/08/24 Elemental)] Cholecalciferol (Vitamin D3) 125 mcg PO DAILY 11/29/20 08/08/24 [Vitamin D3 (5000 Iu)] Rosuvastatin [Crestor] 10 mg PO DAILY 05/06/24 08/08/24 Sertraline [Zoloft] 100 mg PO DAILY 05/06/24 08/08/24 Albuterol Inhaler [Ventolin Hfa 1 puff INHALATION RT-Q4H PRN 07/11/24 08/08/24 Inhaler] HYDROcodone/APAP 5-325MG [[place] 1 tab PO Q8H PRN 07/11/24 08/08/24 5-325] Magnesium Oxide [Mag-Ox] 250 mg PO DAILY 07/11/24 08/08/24 Mirtazapine 30 mg PO HS 07/11/24 08/08/24 Multivitamins, Thera [Multivitamin 1 tab PO DAILY 07/11/24 08/08/24 (formulary)] OLANZapine [ZyPREXA] 2.5 mg PO HS 07/11/24 08/08/24 Omeprazole 20 mg PO DAILY 07/11/24 08/08/24 Ondansetron [Zofran] 4 mg PO Q4H PRN 07/11/24 08/08/24 Paliperidone IM [Invega Sustenna] 234 mg IM Q28D 07/11/24 08/08/24 Thiamine [Vitamin B-1] 100 mg PO DAILY 07/11/24 08/08/24 Previous Rx's Medication Instructions Recorded Acetaminophen Tab [Tylenol] 650 mg PO Q6HR PRN tab 07/15/24 Lidocaine Viscous 2% [Xylocaine 10 ml MUCOUS MEM Q6HR #280 ml 07/15/24 Viscous] Ascorbic Acid [Vitamin C] 500 mg PO W/LUNCH tab 08/27/24 Amoxic-Pot Clav 875-125Mg 1 tab PO Q12HR 7 Days #14 tab 11/13/24 [Augmentin 875-125] predniSONE 50 mg PO DAILY 5 Days #5 tab 11/13/24 cefuroxime axetiL [Ceftin] 500 mg PO BID 7 Days #14 tab 12/05/24 predniSONE 50 mg PO DAILY 5 Days #5 tab 12/05/24 Allergies Allergy/AdvReac Type Severity Reaction Status Date / Time haloperidol [From Haldol] Allergy Anaphylaxis Verified 12/05/24 11:42 Review of Systems ROS Statement: Those systems with pertinent positive or pertinent negative responses have been documented in the HPI. ROS Other: All systems not noted in ROS Statement are negative. Past Medical History Past Medical History: Cancer, Chest Pain / Angina Additional Past Medical History / Comment(s): hernia, inguinal/umb, dizzyness when laying down or standing too quickly, mouth cancer History of Any Multi-Drug Resistant Organisms: None Reported Past Surgical History: Hernia Repair, Orthopedic Surgery Additional Past Surgical History / Comment(s): 05-03-16 robotic assisted lap lt inguinal hernia repair, right foot Past Anesthesia/Blood Transfusion Reactions: No Reported Reaction Past Psychological History: Anxiety, Bipolar, Depression, Schizophrenia Smoking Status: Current every day smoker Past Alcohol Use History: Daily Past Drug Use History: None Reported - Past Family History Mother Family Medical History: Cancer Additional Family Medical History / Comment(s): bronchitis Father Family Medical History: No Reported History General Exam Limitations: no limitations General appearance: alert, in no apparent distress Head exam: Present: atraumatic ENT exam: Present: TM's normal bilaterally, normal external ear exam, other (Mild submental fullness. No tenderness. No pharyngeal erythema.) Respiratory exam: Present: normal lung sounds bilaterally. Absent: respiratory distress, wheezes, rales, rhonchi, stridor Cardiovascular Exam: Present: regular rate, normal rhythm Neurological exam: Present: alert, oriented X3, CN II-XII intact Psychiatric exam: Present: normal affect, normal mood Skin exam: Present: warm, dry, intact, normal color. Absent: rash Course Vital Signs 12/05/24 12/05/24 11:40 13:44 Temperature 97.8 F 97.8 F Pulse Rate 75 68 Respiratory 20 15 Rate Blood Pressure 123/74 118/58 O2 Sat by Pulse 98 98 Oximetry Medical Decision Making - Medical Decision Making This is a 59-year-old male who presents to the emergency department for swelling underneath his chin. Was pt. sent in by a medical professional or institution? @ -No Did you speak to anyone other than the patient for history? @ -No Did you review nursing and triage notes? @ -Yes, and I agree, it is accurate with regards to the patient's symptoms. Were old charts reviewed? @ -CT scan of the soft tissue neck from 11/13/2024 revealing no change in the soft tissue mass of the tongue base and no significant interval change compared to the study from 08/11/2024. Differential Diagnosis? @ -Lymphadenopathy, cellulitis, Luis Fernando's angina, sialoadenitis, this is not meant to be an all-inclusive list. EKG interpreted by me (3pts min.)? @ -Not obtained X-rays interpreted by me (1pt min.)? @ -Not obtained CT interpreted by me (1pt min.)? @ -Not obtained U/S interpreted by me (1pt. min.)? @ -Not obtained What testing was considered but not performed? (CT, X-rays, U/S, labs)? Why? @ -None What meds were considered but not given? Why? @ -None Did you discuss the management of the patient with other professionals? @ -No Did you reconcile home meds? @ -No Was smoking cessation discussed for >3mins.? @ -I discussed smoking cessation for greater than 3 minutes. The risk of smoking were discussed with the patient including but not limited to risks of cancer, stroke, coronary artery disease and COPD. Also discussed with patient were multiple methods of quitting smoking. Lastly we discussed the financial cost of smoking. Was critical care preformed (if so, how long)? @ -No Were there social determinants of health that impacted care today? How? (Homelessness, low income, unemployed, alcoholism, drug addiction, transportation, low edu. Level, literacy, decrease access to med. care, correction, rehab)? @ -No Was there de-escalation of care discussed even if they declined? (Discuss DNR or withdrawal of care, Hospice)? @ -No What co-morbidities impacted this encounter? (DM, HTN, Smoking, COPD, CAD, Cancer, CVA, Hep., AIDS, mental health diagnosis, sleep apnea, morbid obesity)? @ -Throat cancer, smoking Was patient admitted / discharged? @ -Discharged. Patient reports that he has been experiencing intermittent bouts of swelling underneath the chin. This is not bothering him in any way. States that has not discussed this concern with his oncologist or PCP. He does report that he seems to get some improvement with antibiotics and steroids. He was also evaluated here less than a month ago for the same complaint. CT scan of the soft tissue neck obtained at that time revealed that the cancer appeared stable. There were no signs of obvious infection on exam. The cause of this is not entirely clear. Because the imaging from last month was stable and this is a recurrent and ongoing issue, no repeat imaging was obtained. Given that he has had improvement with steroids and antibiotics in the past, cefuroxime and prednisone were prescribed. However, I did stress with the patient that he needs to make sure he brings this up with his oncologist and he should schedule a sooner follow-up appointment to have this reevaluated. Patient discharged home in stable condition. Case discussed with ED attending Dr. Tavarez. Return precautions reviewed in depth, the patient is instructed to return to the emergency department with any new, worsening, or concerning symptoms. Patient verbalized understanding. Undiagnosed new problem with uncertain prognosis? @ -None Drug Therapy requiring intensive monitoring for toxicity (Heparin, Nitro, Insulin, Cardizem)? @ -None Were any procedures done? @ -None Diagnosis/symptom? @ -Submandibular swelling Acute, or Chronic, or Acute on Chronic? @ -Acute Uncomplicated (without systemic symptoms) or Complicated (systemic symptoms)? @ -Uncomplicated Side effects of treatment? @ -None Exacerbation, Progression, or Severe Exacerbation] @ -Not applicable Poses a threat to life or bodily function? @ -Unlikely Disposition Clinical Impression: Submandibular swelling, Nicotine dependence Disposition: HOME SELF-CARE Additional Instructions: Return to the emergency department with any new, worsening, or concerning symptoms. Take the antibiotic as prescribed for 7 days. Take the prednisone daily for 5 days. Follow-up with the [facility] next week for reevaluation. Prescriptions: cefuroxime axetiL [Ceftin] 500 mg PO BID 7 Days #14 tab predniSONE 50 mg PO DAILY 5 Days #5 tab Is patient prescribed a controlled substance at d/c from ED?: No Referrals: Jae Olsen MD [Primary Care Provider] - 1-2 days Time of Disposition: 13:14
[2024-12-05] MEDS: DEXAMETHASONE SOD PHOSPHATE 10 MG/ML 1 ML VIAL IM STA (13:28)
[2024-12-05] MEDS: cefTRIAXone 1,000 MG VIAL (IM USE) IM STA (13:29)
[2024-12-05 13:45] VITALS: BP 118/58; PULSE 68; RESP 15
== END 2024-12-05 13:43 | disposition home or self-care (01) ==
LOC: EC 11:35
DX: K11.8 Other diseases of salivary glands (principal); Z85.818 Personal history of malignant neoplasm of other sites of lip, oral cavity, and pharynx; F17.200 Nicotine dependence, unspecified, uncomplicated; Z88.8 Allergy status to other drugs, medicaments and biological substances
CPT/HCPCS: 99283; 96372; J1100; J0696